=== PATIENT | male | born 1940 | race Caucasian/White ===

== ENCOUNTER → 2016-08-01 | Outpatient (CLI) | payer MEDICARE | LOC: SP 07:24 | PROVIDERS: ATTEND Internal Medicine Pulmonary Disease | DX: J32.9 Chronic sinusitis, unspecified (principal); R09.89 Other specified symptoms and signs involving the circulatory and respiratory systems | CPT/HCPCS: 70220; 93880 ==

== ENCOUNTER → 2016-12-28 | Outpatient (CLI) | payer MEDICARE ==
[2016-12-28 12:04] LABS: ALANINE AMINOTRANSFERASE 16 U/L (21-72); ALBUMIN 4.2 g/dL (3.5-5.0); ALKALINE PHOSPHATASE 73 U/L (38-126); ASPARTATE AMINO TRANSFERASE 16 U/L (17-59); BILIRUBIN,DIRECT 0.3 mg/dL (0.0-0.4); BILIRUBIN,TOTAL 0.6 mg/dL (0.2-1.3); Direct HDL 42 mg/dL (>40); TOTAL PROTEIN 6.9 g/dL (6.3-8.2); TRIGLYCERIDES 115 mg/dL (<150)
[2016-12-28 12:16] LABS: DIRECT LDL 129 mg/dL (<100)
== END ==
LOC: OD 11:02
PROVIDERS: ATTEND Specialist
DX: R07.2 Precordial pain (principal); I25.10 Atherosclerotic heart disease of native coronary artery without angina pectoris; I50.32 Chronic diastolic (congestive) heart failure; I10 Essential (primary) hypertension; R94.31 Abnormal electrocardiogram [ECG] [EKG]; E78.4 Other hyperlipidemia; R06.02 Shortness of breath; Z95.5 Presence of coronary angioplasty implant and graft; R09.89 Other specified symptoms and signs involving the circulatory and respiratory systems; I73.89 Other specified peripheral vascular diseases; J44.9 Chronic obstructive pulmonary disease, unspecified; E08.9 Diabetes mellitus due to underlying condition without complications; E78.5 Hyperlipidemia, unspecified; Z79.899 Other long term (current) drug therapy
CPT/HCPCS: 36415; 80061; 80076; 83036

== ENCOUNTER → 2017-01-23 | Outpatient (CLI) | payer MEDICARE ==
--- NOTE | 2017-01-23 09:29 | RADIOLOGY REPORT (SQ) ---
EXAM DESCRIPTION: CT HEAD WITHOUT COMPLETED DATE/TIME: 01/23/2017 7:48 am REASON FOR STUDY: HEADACHE (R51) R51 HEADACHE COMPARISON: None. TECHNIQUE: Axial images acquired through the brain without intravenous contrast. Images reviewed wi th bone, brain and subdural windows. Images stored on PACS. All CT scanners at this facility use dose modulation, iterative reconstruction, and/or weight based d osing when appropriate to reduce radiation dose to as low as reasonably achievable (ALARA). [facility]: Dose Right [facility]: CareDose [facility]: Dose Right [facility]: Teradose 4D [facility]: [employer] [facility] [employer] RADIATION DOSE: Up-to-date CT equipment and radiation dose reduction techniques were employed. CTDIv ol: 48.4 mGy. DLP: 881 mGy-cm. mGy. LIMITATIONS: None. FINDINGS: VENTRICLES: Normal size and contour. CEREBRUM: No masses. No hemorrhage. No midline shift. No evidence for acute infarction. Normal gra y/white matter differentiation. No areas of low density in the white matter. CEREBELLUM: No masses. No hemorrhage. No alteration of density. No evidence for acute infarction. EXTRAAXIAL SPACES: No fluid collections. No masses. ORBITS AND GLOBE: No intra- or extraconal masses. Normal contour of globe without masses. CALVARIUM: No fracture. PARANASAL SINUSES: No fluid or mucosal thickening. SOFT TISSUES: No mass or hematoma. OTHER: No other significant finding. IMPRESSION: NORMAL BRAIN CT WITHOUT CONTRAST. COMMENT: Quality ID # [id number]: Final reports with documentation of one or more dose reduction techniques (e.g., Automated exposure control, adjustment of the mA and/or kV according to patient size, use of iterative reconstruction technique) TECHNICAL DOCUMENTATION: JOB ID: [id number] [employer]- All Rights Reserved
== END ==
LOC: RAD 07:29
PROVIDERS: ATTEND Internal Medicine
DX: R51 Headache (principal)
CPT/HCPCS: 70450

== ENCOUNTER → 2017-02-01 | Outpatient (CLI) | payer MEDICARE | LOC: OD 09:39 | PROVIDERS: ATTEND Internal Medicine | DX: R07.2 Precordial pain (principal); I50.32 Chronic diastolic (congestive) heart failure; I25.10 Atherosclerotic heart disease of native coronary artery without angina pectoris; I10 Essential (primary) hypertension; R94.31 Abnormal electrocardiogram [ECG] [EKG]; E78.4 Other hyperlipidemia; R06.02 Shortness of breath; I73.89 Other specified peripheral vascular diseases; J44.9 Chronic obstructive pulmonary disease, unspecified; E08.9 Diabetes mellitus due to underlying condition without complications; Z95.5 Presence of coronary angioplasty implant and graft; Z79.899 Other long term (current) drug therapy; R09.89 Other specified symptoms and signs involving the circulatory and respiratory systems | CPT/HCPCS: 36415; 83880 ==

== ENCOUNTER → 2017-02-20 | Outpatient (CLI) | payer MEDICARE ==
--- NOTE | 2017-02-20 09:03 | RADIOLOGY REPORT (SQ) ---
EXAM DESCRIPTION: MRI LUMBAR SPINE WITHOUT COMPLETED DATE/TIME: 02/20/2017 8:38 am REASON FOR STUDY: LUMBAR RADICULOPATHY (M54.16) M54.16 RADICULOPATHY, LUMBAR REGION COMPARISON: None. TECHNIQUE: Sagittal and Axial imaging includes T1, T2, STIR and gradient echo sequences. LIMITATIONS: None. FINDINGS: VISUALIZED UPPER ABDOMEN: Limited evaluation. No acute or suspicious findings suggested. SEGMENTATION: No transitional anatomy. The lowest well-developed disc space is labeled L5-S1. ALIGNMENT: Anatomic. VERTEBRAE: Intact. BONE MARROW: Normal. No marrow replacement or reactive changes. DISC SIGNAL: Normal. No significant abnormal signal or loss of height. POSTERIOR ELEMENTS: Generally intact. No pars defect evident. HARDWARE: None in the spine. CORD AND CONUS: Normal in size and signal intensity. Conus at the appropriate level. SOFT TISSUES: No aortic aneurysm seen. No bulky retroperitoneal adenopathy or mass. No paraspinal mas s or fluid. L1-L2: No significant spinal stenosis or exit foraminal stenosis. L2-L3: No significant spinal stenosis or exit foraminal stenosis. L3-L4: No significant spinal stenosis or exit foraminal stenosis. L4-L5: Mild diffuse posterior bulge and mild -moderate facet arthropathy. Mild spinal stenosis. No significant exit foraminal stenosis. L5-S1: Mild disc bulge. Mild facet arthropathy. No significant spinal stenosis or exit foraminal st enosis. LOWER THORACIC: Incompletely imaged. No stenosis seen. SACRUM: Visualized upper sacrum intact. OTHER: No other significant findings. IMPRESSION: MILD DEGENERATIVE CHANGE IN THE LOWER LUMBAR SPINE. MILD SPINAL STENOSIS AT L4-L5. TECHNICAL DOCUMENTATION: JOB ID: [id number]- All Rights Reserved
== END ==
LOC: RAD 07:13
PROVIDERS: ATTEND Internal Medicine
DX: M54.16 Radiculopathy, lumbar region (principal)
CPT/HCPCS: 72148

== ENCOUNTER 2017-06-04 12:52 | Inpatient (IN) | payer MEDICARE, OTHER ==
[2017-06-04] MEDS ORDERED: METHYLPREDNISOLONE INJ 125 MG/2 ML SDV IV ONE (12:59)
[2017-06-04] MEDS ORDERED: NITROGLYCERIN 2% OINTMENT 1 GM PACKET TP ONE (13:00)
--- NOTE | 2017-06-04 13:01 | ER Document Report ---
ED Respiratory Problem - General Stated Complaint: SHORTNESS OF BREATH Time Seen by Provider: 06/04/17 12:57 Notes: 76-year-old male. History of CHF. History of smoking. Followed by Dr. Kumar. Was decreased recently on his Lasix. States since that time he has had increased shortness of breath. Was taking 160 mg of Lasix a day now only taking 40. Started having increased swelling of his lower extremities as well. Had some intermittent chest pain as well. On arrival by EMS patient reportedly breathing about 40 breaths per minute. Placed on CPAP. Was given 2 breathing treatments in route as well. Patient states he feels much better at this time but still little short of breath. TRAVEL OUTSIDE OF THE [place] IN LAST 30 DAYS: No - HPI Patient complains to provider of: Chest pain, CHF, COPD, Cough, Short of breath Onset: Just prior to arrival Duration: Better Initiating Event: Exertion, Exposure to smoke Quality of pain: No pain Severity: Moderate Pain Level: 3 Context: Hx CHF Cough: Nonproductive Sputum amount: None EMS treatments: Bronchodilators, CPAP Associated symptoms: Ankle/leg swelling, Cough, Short of breath - Related Data Allergies/Adverse Reactions: quinine [Quinine] Allergy (Verified 06/04/17 13:30) Past Medical History - General Information source: Patient - Social History Smoking Status: Current Every Day Smoker Cigarette use (# per day): Yes Frequency of alcohol use: None Drug Abuse: None Lives with: Family Family History: Reviewed & Not Pertinent - Past Medical History Cardiac Medical History: Reports: Hx Atrial Fibrillation, Hx Coronary Artery Disease, Hx Hypercholesterolemia, Hx Hypertension Denies: Hx Congestive Heart Failure, Hx DVT, Hx Pulmonary Embolism Pulmonary Medical History: Reports: Hx Bronchitis, Hx COPD Neurological Medical History: Reports: Hx Cerebrovascular Accident Endocrine Medical History: Reports: Hx Diabetes Mellitus Type 2 Renal/ Medical History: Denies: Hx Peritoneal Dialysis GI Medical History: Reports: Hx Gastroesophageal Reflux Disease Psychiatric Medical History: Reports: Hx Anxiety Past Surgical History: Reports: Hx Cardiac Catheterization, Hx Coronary Stent, Hx Kidney (Renal Surgery), Hx Orthopedic Surgery - neck - Immunizations Immunizations up to date: Yes Hx Diphtheria, Pertussis, Tetanus Vaccination: Yes Hx Pneumococcal Vaccination: 02/26/12 Review of Systems - Review of Systems Constitutional: No symptoms reported EENT: No symptoms reported Cardiovascular: Chest pain Respiratory: Cough, Short of breath, Wheezing Gastrointestinal: No symptoms reported Genitourinary: No symptoms reported Male Genitourinary: No symptoms reported Musculoskeletal: No symptoms reported Skin: No symptoms reported Hematologic/Lymphatic: No symptoms reported Neurological/Psychological: No symptoms reported Physical Exam - Vital signs Vitals: Resp Pulse Ox 0 L 100 06/04/17 13:00 06/04/17 13:00 Interpretation: Hypertensive - General General appearance: Appears well, Alert In distress: Moderate - HEENT Head: Normocephalic, Atraumatic Eyes: Normal Pupils: PERRL - Respiratory Respiratory status: No respiratory distress Chest status: Nontender Breath sounds: Decreased air movement, Wheezing Chest palpation: Normal - Cardiovascular Rhythm: Regular Heart sounds: Normal auscultation Murmur: No - Abdominal Inspection: Normal Distension: No distension Bowel sounds: Normal Tenderness: Nontender Organomegaly: No organomegaly - Back Back: Normal, Nontender - Extremities General upper extremity: Normal inspection, Nontender, Normal color, Normal ROM , Normal temperature General lower extremity: Normal inspection, Nontender, Edema, Normal color, Normal ROM, Normal temperature, Normal weight bearing. No: Jennifer's sign - Neurological Neuro grossly intact: Yes Cognition: Normal Orientation: AAOx4 Boyd Coma Scale Eye Opening: Spontaneous Boyd Coma Scale Verbal: Oriented Jodie Coma Scale Motor: Obeys Commands Boyd Coma Scale Total: 15 Speech: Normal Motor strength normal: LUE, RUE, LLE, RLE Sensory: Normal - Psychological Associated symptoms: Normal affect, Normal mood - Skin Skin Temperature: Warm Skin Moisture: Dry Skin Color: Normal Course - Re-evaluation Re-evalutation: 06/04/17 13:09 Patient on CPAP. Wheezing. Obvious edema lower extremities. Possible COPD versus CHF versus CO versus pneumonia. Get broad workup, keep on CPAP at this time, steroids, breathing treatments, nitro glycerin ointment and reassess. 06/04/17 14:[address] Kumar. Will admit to IMCU at this time for CHF exacerbation. 06/04/17 14:35 Laboratory 06/04/17 06/04/17 06/04/17 13:14 13:14 13:14 WBC 6.9 RBC 4.10 L Hgb 11.9 L Hct 36.2 L MCV 88 MCH 29.0 MCHC 32.8 RDW 15.4 H Plt Count 228 Seg Neutrophils % 72.3 Lymphocytes % 15.5 Monocytes % 8.1 Eosinophils % 3.2 Basophils % 0.9 Absolute Neutrophils 5.0 Absolute Lymphocytes 1.1 Absolute Monocytes 0.6 Absolute Eosinophils 0.2 Absolute Basophils 0.1 Sodium 140.4 Potassium 4.5 Chloride 99 Carbon Dioxide 31 H Anion Gap 10 BUN 18 Creatinine 1.23 Est GFR ( Amer) > 60 Est GFR (Non-Af Amer) 57 L Glucose 129 H Calcium 9.1 Total Bilirubin 0.3 Direct Bilirubin 0.2 Neonat Total Bilirubin Not Reportable Neonat Direct Bilirubin Not Reportable Neonat Indirect Bili Not Reportable AST 20 ALT 28 Alkaline Phosphatase 70 Creatine Kinase 64 CK-MB (CK-2) 1.12 Troponin I 0.013 NT-Pro-B Natriuret Pep 1989 Total Protein 6.6 Albumin 4.1 06/04/17 14:36 Chest X-Ray 06/04/17 12:58 IMPRESSION: Stable cardiomegaly. No new or active infiltrates. - Vital Signs Vital signs: Temp Pulse Resp BP Pulse Ox 27 H 147/119 H 100 06/04/17 13:03 06/04/17 13:03 06/04/17 13:03 - Laboratory Result Diagrams: 06/04/17 13:14 06/04/17 13:14 Laboratory results interpreted by ks: 06/04/17 06/04/17 06/04/17 13:14 13:14 13:14 RBC 4.10 L Hgb 11.9 L Hct 36.2 L RDW 15.4 H Carbon Dioxide 31 H Est GFR (Non-Af Amer) 57 L Glucose 129 H NT-Pro-B Natriuret Pep 1989 - EKG Interpretation by Ms EKG shows normal: Sinus rhythm, [place], QRS Complexes, ST-T Waves Rhythm: APC's [place]/QRS: RBBB Heart block present: 1st Degree When compared to previous EKG there are: No significant change Discharge - Discharge Clinical Impression: COPD exacerbation Congestive heart disease Qualifiers: Congestive heart failure type: combined Congestive heart failure chronicity: acute Qualified Code(s): I50.41 - Acute combined systolic (congestive) and diastolic (congestive) heart failure Condition: Good Disposition: ADMITTED INPATIENT Admitting Provider: [facility] Unit Admitted: [facility]
[2017-06-04 13:30] LABS: ABSOLUTE BASOPHILS # (AUTO) 0.1 10^3/uL (0.0-0.2); ABSOLUTE EOSINOPHILS # (AUTO) 0.2 10^3/uL (0.0-0.6); ABSOLUTE LYMPHOCYTES (AUTO) 1.1 10^3/uL (0.5-4.7); ABSOLUTE MONOCYTES (AUTO) 0.6 10^3/uL (0.1-1.4); BASOPHILS % (AUTO) 0.9 % (0-2); EOSINOPHILS % (AUTO) 3.2 % (0-6); HEMATOCRIT 36.2 % (37.9-51.0); HEMOGLOBIN 11.9 g/dL (13.5-17.0); LYMPHOCYTES % (AUTO) 15.5 % (13-45); MEAN CORPUSCULAR HGB CONC 32.8 g/dL (32.0-36.0); MEAN CORPUSCULAR VOLUME 88 fl (80-97); MONOCYTES % (AUTO) 8.1 % (3-13); PLATELET COUNT 228 10^3/uL (150-450); RED CELL DISTRIBUTION WIDTH 15.4 % (11.5-14.0); SEGMENTED NEUTROPHILS % (AUTO) 72.3 % (42-78); TOTAL CELLS COUNTED % (AUTO) 100 %; WHITE BLOOD COUNT 6.9 10^3/uL (4.0-10.5)
[2017-06-04 13:49] LABS: ALANINE AMINOTRANSFERASE 28 U/L (21-72); ALBUMIN 4.1 g/dL (3.5-5.0); ALKALINE PHOSPHATASE 70 U/L (38-126); ANION GAP 10 (5-19); ASPARTATE AMINO TRANSFERASE 20 U/L (17-59); BILIRUBIN,DIRECT 0.2 mg/dL (0.0-0.4); BILIRUBIN,TOTAL 0.3 mg/dL (0.2-1.3); BLOOD UREA NITROGEN 18 mg/dL (7-20); CALCIUM 9.1 mg/dL (8.4-10.2); CARBON DIOXIDE 31 mmol/L (22-30); CHLORIDE 99 mmol/L (98-107); CREATINE KINASE 64 U/L (55-170); GLUCOSE 129 mg/dL (75-110); POTASSIUM 4.5 mmol/L (3.6-5.0); SODIUM 140.4 mmol/L (137-145); TOTAL PROTEIN 6.6 g/dL (6.3-8.2)
[2017-06-04 14:01] LABS: CREATINE KINASE MB 1.12 ng/mL (<4.55); TROPONIN I 0.013 ng/mL
[2017-06-04] MEDS ORDERED: FUROSEMIDE INJ/PF 40 MG/4 ML SDV IV ONE (14:25)
--- NOTE | 2017-06-04 14:32 | RADIOLOGY REPORT (SQ) ---
EXAM DESCRIPTION: CHEST SINGLE VIEW COMPLETED DATE/TIME: 06/04/2017 2:17 pm REASON FOR STUDY: sob COMPARISON: None. EXAM PARAMETERS: NUMBER OF VIEWS: One view. 08/08/2016 TECHNIQUE: Single frontal radiographic view of the chest acquired. RADIATION DOSE: NA LIMITATIONS: None. FINDINGS: LUNGS AND PLEURA: No opacities, masses or pneumothorax. No pleural effusion. MEDIASTINUM AND HILAR STRUCTURES: No masses. Contour normal. HEART AND VASCULAR STRUCTURES: Stable cardiomegaly BONES: No acute findings. HARDWARE: None in the chest. OTHER: No other significant finding. IMPRESSION: Stable cardiomegaly. No new or active infiltrates. TECHNICAL DOCUMENTATION: JOB ID: [id number] [employer]- All Rights Reserved
[2017-06-04] MEDS ORDERED: ALBUTEROL SULFATE 0.083% NEB 2.5 MG/3 ML AMPUL NEB ONE (14:51)
[2017-06-04 16:58] LABS: ARTERIAL BLOOD BASE EXCESS 5.1 mmol/L; ARTERIAL BLOOD FIO2 40%; ARTERIAL BLOOD HCO3 31.8 mmol/L (20-26); ARTERIAL BLOOD O2 SATURATION 98.6 % (94-98); ARTERIAL BLOOD PCO2 56.4 mmHg (35-45); ARTERIAL BLOOD PH 7.37 (7.35-7.45); ARTERIAL BLOOD PO2 138.5 mmHg (80-100); ARTERIAL BLOOD TOTAL CO2 33.5 mmol/L (23-27)
--- NOTE | 2017-06-04 17:10 | EKG REPORT ---
SEVERITY:- ABNORMAL ECG - SINUS OR ECTOPIC ATRIAL RHYTHM MULTIPLE ATRIAL PREMATURE COMPLEXES FIRST DEGREE AV BLOCK RIGHT BUNDLE BRANCH BLOCK : Confirmed by: Philippe Galvan MD 04-Jun-2017 17:10:29
[2017-06-04] MEDS ORDERED: GLUCAGON,HUMAN RECOMB 1 MG INJ IM PRN (18:14)
[2017-06-04] MEDS ORDERED: DEXTROSE 40% GEL 15 GM TUBE PO PRN ×2 (18:14)
[2017-06-04] MEDS ORDERED: DEXTROSE 50%-WATER 25 GM/50 ML DISP.SYRIN IV PRN ×2 (18:14)
[2017-06-04 18:57] LABS: INTERNATIONAL RATION (INR) 0.95; PROTHROMBIN TIME 13.4 SEC (11.4-15.4)
[2017-06-04 18:58] LABS: APPEARANCE,URINE CLEAR; BILIRUBIN,URINE NEGATIVE (NEGATIVE); COLOR,URINE STRAW; GLUCOSE, URINE NEGATIVE (NEGATIVE); KETONES,URINE NEGATIVE (NEGATIVE); LEUKOCYTE ESTERASE,URINE NEGATIVE (NEGATIVE); NITRITE,URINE NEGATIVE (NEGATIVE); PROTEIN,URINE 100 mg/dL (NEGATIVE); URINE SPECIFIC GRAVITY 1.006; UROBILINOGEN,URINE NEGATIVE mg/dL (<2.0)
[2017-06-04 19:05] LABS: LIPASE 58.8 U/L (23-300); MAGNESIUM 1.8 mg/dL (1.6-2.3); PHOSPHORUS 3.9 mg/dL (2.5-4.5)
[2017-06-04 19:07] LABS: URINE AMPHETAMINES SCREEN NEGATIVE; URINE BARBITURATES SCREEN NEGATIVE; URINE BENZODIAZEPINES SCREEN NEGATIVE; URINE COCAINE SCREEN NEGATIVE; URINE MARIJUANA (THC) SCREEN NEGATIVE; URINE METHADONE SCREEN NEGATIVE; URINE PHENCYCLIDINE SCREEN NEGATIVE
[2017-06-04 19:24] LABS: CREATINE KINASE MB 1.19 ng/mL (<4.55); TROPONIN I 0.023 ng/mL
[2017-06-04 19:28] LABS: FREE T4 (FREE THYROXINE) 1.22 ng/dL (0.78-2.19)
[2017-06-04 19:42] LABS: THYROID STIMULATING HORMONE 0.44 uIU/mL (0.47-4.68)
--- NOTE | 2017-06-04 20:21 | RADIOLOGY REPORT (SQ) ---
EXAM DESCRIPTION: CT CHEST WITHOUT COMPLETED DATE/TIME: 06/04/2017 8:11 pm REASON FOR STUDY: pneumonia COMPARISON: 08/08/2016 TECHNIQUE: CT scan performed of the chest without intravenous contrast. Images reviewed with lung, soft tissue and bone windows. Reconstructed coronal and sagittal MPR images reviewed. All images st ored on PACS. All CT scanners at this facility use dose modulation, iterative reconstruction, and/or weight based d osing when appropriate to reduce radiation dose to as low as reasonably achievable (ALARA). [facility]: Dose Right [facility]: CareDose [facility]: Dose Right [facility]: Teradose 4D [facility]: Smart [employer] RADIATION DOSE: CT Rad equipment meets quality standard of care and radiation dose reduction techniq ues were employed. CTDIvol: 18.1 mGy. DLP: 805 mGy-cm. mGy. LIMITATIONS: No technical limitations. FINDINGS: LUNGS AND PLEURA: Paraseptal and centrilobular emphysema. Occasional pulmonary nodules me asuring up to about 5 mm which are stable. No effusions HILAR AND MEDIASTINAL STRUCTURES: No identified masses or abnormal nodes. No obvious aneurysm. HEART AND VASCULAR STRUCTURES: No aneurysm. No pericardial effusion. UPPER ABDOMEN: No significant findings. Limited exam. THYROID AND OTHER SOFT TISSUES: No masses. No adenopathy. BONES: No significant finding. HARDWARE: None in the chest. OTHER: No other significant findings. IMPRESSION: COPD. Stable pulmonary nodules. TECHNICAL DOCUMENTATION: JOB ID: [id number] Quality ID # [id number]: Final reports with documentation of one or more dose reduction techniques (e.g., Au tomated exposure control, adjustment of the mA and/or kV according to patient size, use of iterative reconstruction technique) 2010 [employer]- All Rights Reserved
--- NOTE | 2017-06-04 21:16 | PDOC H&P ---
History of Present Illness Admission Date/PCP: 06/04/17 14:38 History of Present Illness: Earnest PIMENTEL is a 76 year old male, He has a history of chronic obstructive pulmonary disease, he came to the emergency room for evaluation of shortness of breath, in the emergency room he was evaluated, chest x-ray was done It showed no acute pathology subsequently CT chest was done, it showed no pneumonia, no CHF no mass except for COPD. Patient used to take megadoses of furosemide, he was on 160 mg of furosemide this dose was affecting kidney function, the dose was decreased to 40 mg p.o. daily, he stated that the decrease dose of Lasix is the cause of his symptoms of shortness of breath, though he continues to smoke cigarettes despite very severe COPD.ABG was done on FiO2 40% showed pH 7.37, PCO2 56.4, PO2 130.5, bicarbonate 31.8 this ABG suggests chronic respiratory acidosis if this was a normal lung but he has baseline COPD, this is most consistent with acute on chronic respiratory failure in this patient with a baseline COPD Past Medical History Cardiac Medical History: Reports: Coronary Artery Disease, Myocardial Infarction Pulmonary Medical History: Reports: Bronchitis, Chronic Obstructive Pulmonary Disease (COPD) Endocrine Medical History: Reports: Diabetes Mellitus Type 2 GI Medical History: Reports: Gastroesophageal Reflux Disease Psychiatric Medical History: Reports: Depression Past Surgical History Past Surgical History: Reports: Cardiac Catheterization, Coronary Stent, Orthopedic Surgery - neck Social History Lives with: Family Smoking Status: Current Every Day Smoker Frequency of Alcohol Use: None Hx Recreational Drug Use: No Hx Prescription Drug Abuse: No Family History Family History: Reviewed & Not Pertinent Parental Family History Reviewed: Yes Children Family History Reviewed: Yes Sibling(s) Family History Reviewed.: Yes Medication/Allergy Home Medications: Allopurinol [Zyloprim 100 mg Tablet] 100 mg PO DAILY 06/04/17 Aspirin [Aspirin 81 mg Chewable Tablet] 81 mg PO DAILY 06/04/17 Duloxetine HCl [Cymbalta] 60 mg PO DAILY 06/04/17 Furosemide [Lasix 80 mg Tablet] 80 mg PO BID 06/04/17 Hydrocodone/Acetaminophen [[place] 10-325 mg Tablet] 1 tab PO Q8 06/04/17 Metformin HCl [Glucophage 500 mg Tablet] 500 mg PO BIDBS 06/04/17 Metoprolol Succinate [Toprol Xl 25 mg Tab.sr] 25 mg PO DAILY 06/04/17 Montelukast Sodium [Singulair 10 mg Tablet] 10 mg PO QPM 06/04/17 Pioglitazone HCl [Actos 15 mg Tablet] 15 mg PO DAILY 06/04/17 Potassium Chloride [K-Tab ER] 10 mg PO DAILY 06/04/17 Pramipexole Di-HCl [Mirapex] 0.125 mg PO QHS 06/04/17 Pravastatin Sodium [Pravachol] 40 mg PO DAILY 06/04/17 Ramipril [Altace 10 mg Capsule] 10 mg PO DAILY 06/04/17 Allergies/Adverse Reactions: quinine [Quinine] Allergy (Verified 06/04/17 13:30) Review of Systems Constitutional: ABSENT: chills, fever(s), headache(s), weight gain, weight loss Eyes: ABSENT: visual disturbances Ears: ABSENT: hearing changes Cardiovascular: PRESENT: chest pain, dyspnea on exertion Respiratory: PRESENT: cough, dyspnea Gastrointestinal: ABSENT: abdominal pain, constipation, diarrhea, hematemesis, hematochezia, nausea, vomiting Genitourinary: ABSENT: dysuria, hematuria Musculoskeletal: ABSENT: joint swelling Integumentary: ABSENT: rash, wounds Neurological: ABSENT: abnormal gait, abnormal speech, confusion, dizziness, focal weakness, syncope Psychiatric: ABSENT: anxiety, depression, homidical ideation, suicidal ideation Endocrine: ABSENT: cold intolerance, heat intolerance, menstrual abnormalities, polydipsia, polyuria Hematologic/Lymphatic: ABSENT: easy bleeding, easy bruising, lymphadenopathy Physical Exam Vital Signs: Temp Pulse Resp BP Pulse Ox 107 H 33 H 179/71 H 100 06/04/17 20:22 06/04/17 19:02 06/04/17 19:02 06/04/17 19:02 General appearance: PRESENT: severe distress Head exam: PRESENT: atraumatic, normocephalic Eye exam: PRESENT: conjunctiva pink, EOMI, PERRLA Respiratory exam: PRESENT: wheezes Cardiovascular exam: PRESENT: RRR, +S1, +S2 Vascular exam: PRESENT: normal capillary refill GI/Abdominal exam: PRESENT: soft Rectal exam: PRESENT: deferred Neurological exam: PRESENT: alert, awake, oriented to person, oriented to place , oriented to time, oriented to situation, CN II-XII grossly intact Psychiatric exam: PRESENT: appropriate affect, normal mood Skin exam: PRESENT: dry, intact, warm Results Laboratory Results: 06/04/17 06/04/17 06/04/17 16:00 18:40 18:40 Carbonic Acid 1.70 H HCO3/H2CO3 Ratio 18:1 ABG pH 7.37 ABG pCO2 56.4 H ABG pO2 138.5 H ABG HCO3 31.8 H ABG O2 Saturation 98.6 H ABG Base Excess 5.1 FiO2 40% Phosphorus 3.9 Magnesium 1.8 Ammonia Amylase 40 Lipase 58.8 TSH 0.44 L Free T4 1.22 Urine Color Urine Appearance Urine pH Ur Specific [place] Urine Protein Urine Glucose (UA) Urine Ketones Urine Blood Urine Nitrite Ur Leukocyte Esterase Urine WBC (Auto) Urine RBC (Auto) 06/04/17 06/04/17 18:40 19:30 Carbonic Acid HCO3/H2CO3 Ratio ABG pH ABG pCO2 ABG pO2 ABG HCO3 ABG O2 Saturation ABG Base Excess FiO2 Phosphorus Magnesium Ammonia < 8.7 L Amylase Lipase TSH Free T4 Urine Color STRAW Urine Appearance CLEAR Urine pH 5.0 Ur Specific [place] 1.006 Urine Protein 100 H Urine Glucose (UA) NEGATIVE Urine Ketones NEGATIVE Urine Blood SMALL H Urine Nitrite NEGATIVE Ur Leukocyte Esterase NEGATIVE Urine WBC (Auto) 2 Urine RBC (Auto) 2 06/04/17 06/04/17 18:40 18:40 Creatine Kinase 62 CK-MB (CK-2) 1.19 Troponin I 0.023 Impressions: Chest CT 06/04/17 00:00 IMPRESSION: COPD. Stable pulmonary nodules. Chest X-Ray 06/04/17 12:58 IMPRESSION: Stable cardiomegaly. No new or active infiltrates. Assessment & Plan - Diagnosis (1) Acute and chronic respiratory failure Qualifiers: Respiratory failure complication: hypercapnia Qualified Code(s): J96.22 - Acute and chronic respiratory failure with hypercapnia Is this a current diagnosis for this admission?: Yes Plan: Patient is presently on noninvasive positive pressure ventilation BiPAP (2) Acute exacerbation of chronic obstructive pulmonary disease (COPD) Is this a current diagnosis for this admission?: Yes Plan: He obviously have acute COPD exacerbation, treated with Solu-Medrol and antibiotic
[2017-06-04 21:28] LABS: UR PRO/CREAT RATIO RESULT 2.3 mg/mg (0.0-0.2); URINE CREATININE 22.6 mg/dL (22-328)
[2017-06-04] MEDS: METHYLPREDNISOLONE INJ 125 MG/2 ML SDV IV SCH (21:40)
[2017-06-04] MEDS: LEVOFLOXACIN 750 MG/D5W RTU 750 MG/150 ML RTUPB IV SCH (22:16)
[2017-06-04] MEDS: HYDROCODONE/ACETAMINOPHEN 10-325 MG TABLET PO SCH (22:17)
[2017-06-04] MEDS: INSULIN LISPRO 100 UNIT/ML 3 ML VIAL SUBCUT PRN (22:24)
[2017-06-04] MEDS ORDERED: ENOXAPARIN SODIUM INJ 40 MG/0.4 ML DISP.SYRIN SUBCUT ONE (23:00)
[2017-06-05 01:02] LABS: CREATINE KINASE MB 1.54 ng/mL (<4.55); TROPONIN I 0.032 ng/mL
[2017-06-05] MEDS: HYDROCODONE/ACETAMINOPHEN 10-325 MG TABLET PO SCH ×3 (05:00→22:50)
[2017-06-05] MEDS: METHYLPREDNISOLONE INJ 125 MG/2 ML SDV IV SCH ×3 (05:00→22:51)
[2017-06-05 06:43] LABS: ABSOLUTE LYMPHOCYTES (AUTO) 0.5 10^3/uL (0.5-4.7); ABSOLUTE MONOCYTES (AUTO) 0.1 10^3/uL (0.1-1.4); ABSOLUTE NEUT (AUTO) 6.7 10^3/uL (1.7-8.2); BASOPHILS % (AUTO) 0.2 % (0-2); HEMATOCRIT 37.7 % (37.9-51.0); HEMOGLOBIN 12.3 g/dL (13.5-17.0); LYMPHOCYTES % (AUTO) 6.4 % (13-45); MEAN CORPUSCULAR HEMOGLOBIN 28.8 pg (27.0-33.4); MEAN CORPUSCULAR HGB CONC 32.5 g/dL (32.0-36.0); MEAN CORPUSCULAR VOLUME 89 fl (80-97); MONOCYTES % (AUTO) 1.9 % (3-13); PLATELET COUNT 216 10^3/uL (150-450); RED BLOOD COUNT 4.25 10^6/uL (4.35-5.55); RED CELL DISTRIBUTION WIDTH 15.3 % (11.5-14.0); SEGMENTED NEUTROPHILS % (AUTO) 91.5 % (42-78); TOTAL CELLS COUNTED % (AUTO) 100 %; WHITE BLOOD COUNT 7.3 10^3/uL (4.0-10.5)
--- NOTE | 2017-06-05 06:46 | EKG REPORT ---
SEVERITY:- ABNORMAL ECG - SINUS RHYTHM PAIRED ATRIAL PREMATURE COMPLEXES FIRST DEGREE AV BLOCK RIGHT BUNDLE BRANCH BLOCK : Confirmed by: Philippe Galvan MD 05-Jun-2017 06:46:23
[2017-06-05 07:20] LABS: ALANINE AMINOTRANSFERASE 21 U/L (21-72); ALBUMIN 4.1 g/dL (3.5-5.0); ALKALINE PHOSPHATASE 70 U/L (38-126); ANION GAP 10 (5-19); ASPARTATE AMINO TRANSFERASE 19 U/L (17-59); BILIRUBIN,DIRECT 0.3 mg/dL (0.0-0.4); BILIRUBIN,TOTAL 0.3 mg/dL (0.2-1.3); BLOOD UREA NITROGEN 20 mg/dL (7-20); CALCIUM 9.3 mg/dL (8.4-10.2); CARBON DIOXIDE 31 mmol/L (22-30); CHLORIDE 99 mmol/L (98-107); CHOLESTEROL 177.66 mg/dL (0-200); CREATINE KINASE 86 U/L (55-170); GLUCOSE 181 mg/dL (75-110); POTASSIUM 4.8 mmol/L (3.6-5.0); SODIUM 140.1 mmol/L (137-145); TOTAL PROTEIN 6.3 g/dL (6.3-8.2); TRIGLYCERIDES 81 mg/dL (<150)
[2017-06-05 07:31] LABS: DIRECT LDL 114 mg/dL (<100)
[2017-06-05 07:40] LABS: CREATINE KINASE MB 1.88 ng/mL (<4.55); TROPONIN I 0.033 ng/mL
[2017-06-05] MEDS: INSULIN LISPRO 100 UNIT/ML 3 ML VIAL SUBCUT PRN ×3 (08:02→18:41)
[2017-06-05] MEDS: METFORMIN HCL 500 MG TABLET PO SCH ×2 (08:02→16:19)
[2017-06-05] MEDS: ALLOPURINOL 100 MG TABLET PO SCH (09:17)
[2017-06-05] MEDS: ASPIRIN 81 MG TABLET, CHEWABLE PO SCH (09:17)
[2017-06-05] MEDS: POTASSIUM CHLORIDE 10 MEQ TABLET.SA PO SCH (09:17)
[2017-06-05] MEDS: FUROSEMIDE 40 MG TABLET PO SCH (09:18)
[2017-06-05] MEDS: DULOXETINE HCL 30 MG CAPSULE.DR PO SCH (09:18)
[2017-06-05] MEDS: RAMIPRIL 10 MG CAPSULE PO SCH (09:18)
[2017-06-05] MEDS: METOPROLOL SUCCINATE 25 MG TAB.SR.24H PO SCH (09:19)
[2017-06-05] MEDS: PIOGLITAZONE HCL 15 MG TABLET PO SCH (09:19)
[2017-06-05] MEDS: ENOXAPARIN SODIUM INJ 40 MG/0.4 ML DISP.SYRIN SUBCUT SCH (09:20)
[2017-06-05] MEDS ORDERED: FUROSEMIDE 80 MG TABLET PO SCH (10:00)
[2017-06-05] MEDS ORDERED: (PENDING PHARMACY ID) (Pravastatin Sodium [Pravachol] 40 MG) PO SCH (10:00)
[2017-06-05] MEDS: MONTELUKAST SODIUM 10 MG TABLET PO SCH (17:38)
--- NOTE | 2017-06-05 19:39 | XCELERA REPORT ---
[address] [address] Transthoracic Echocardiogram Report Name: Earnest PIMENTEL Age: 76 yrs Gender: Male : 1940 Patient Status: Inpatient Patient Location: [address] [place] [address] Study Date: 06/05/2017 10:43 AM Height: 72 in Weight: 287 lb BSA: 2.5 m2 Procedure: A complete two-dimensional transthoracic echocardiogram was performed (2D, M-mode, spectral and color flow Doppler). The study was technically difficult with many images being suboptimal in quality. Reason For Study: chf Ordering Physician: CARRILLO GARCIA Performed By: Leydi Munson Interpretation Summary The left ventricular ejection fraction is preserved. The left ventricle is grossly normal size. There is mild concentric left ventricular hypertrophy. Doppler measurements suggest pseudonormalized left ventricular relaxation, which is associated with grade II/IV or mild to moderate diastolic dysfunction Regional wall motion abnormalities cannot be excluded due to limited visualization. The right ventricle is moderately dilated. The right ventricular systolic function is mildly reduced. The right ventricle appears to be hypertrophied Borderline left atrial enlargement. The right atrium is mild to moderately dilated. There is a trace amount of mitral regurgitation There is no mitral valve stenosis. There is no aortic valve stenosis There is a trace amount of aortic regurgitation There is a mild amount of tricuspid regurgitation There is mild pulmonary hypertension by echo Right ventricular systolic pressure is estimated to be elevated at 30- 40mmHg. The aortic root is not well visualized but is probably normal size. The inferior vena cava appeared normal and decreased < 50% with respiration (RAP 10-15 mmHg) Minimal pericardial effusion. MMode/2D Measurements & Calculations RVDd: 3.3 cm LVIDd: 5.7 cmFS: 42.8 % Ao root diam: 3.9 cm IVSd: 1.4 cm LVIDs: 3.3 cmEDV(Teich): 162.0 ml LVPWd: 1.1 cmESV(Teich): 43.5 ml Ao root area: 12.1 cm2 EF(Teich): 73.1 % LA dimension: 3.6 cm LVOT diam: 1.9 cm LVOT area: 2.8 cm2 Doppler Measurements & Calculations MV E max terri: MV P1/2t max terri: Ao V2 max: LV V1 max P.8 cm/sec 96.3 cm/sec 158.1 cm/sec 5.2 mmHg MV A max terri: MV P1/2t: 60.7 msec Ao max PG: LV V1 max: 104.1 cm/sec MVA(P1/2t): 3.6 cm2 10.0 mmHg 113.5 cm/sec MV E/A: 0.92 MV dec slope: ANTONIO(V,D): 2.0 cm2 464.1 cm/sec2 PA V2 max: TR max terri: 90.3 cm/sec 279.6 cm/sec PA max P.3 mmHgTR max P.3 mmHg Left Ventricle The left ventricle is grossly normal size. There is mild concentric left ventricular hypertrophy. The left ventricular ejection fraction is preserved. Doppler measurements suggest pseudonormalized left ventricular relaxation, which is associated with grade II/IV or mild to moderate diastolic dysfunction. Regional wall motion abnormalities cannot be excluded due to limited visualization. Right Ventricle The right ventricle is moderately dilated. The right ventricle appears to be hypertrophied. The right ventricular systolic function is mildly reduced. Atria The right atrium is mild to moderately dilated. Borderline left atrial enlargement. Interarterial septum not well visualized and not well dopplered. Cannot comment on ASD/PFO presence. Mitral Valve The mitral valve is not well visualized. There is no mitral valve stenosis. There is a trace amount of mitral regurgitation. Aortic Valve The aortic valve is not well visualized secondary to technical limitations. There is no aortic valve stenosis. There is a trace amount of aortic regurgitation. Tricuspid Valve The tricuspid valve is not well visualized secondary to technical limitations. There is no tricuspid stenosis. There is a mild amount of tricuspid regurgitation. There is mild pulmonary hypertension by echo. Right ventricular systolic pressure is estimated to be elevated at 30- 40mmHg. Pulmonic Valve The pulmonic valve is not well visualized. Great Vessels The aortic root is not well visualized but is probably normal size. The inferior vena cava appeared normal and decreased < 50% with respiration (RAP 10-15 mmHg). Effusions Minimal pericardial effusion. : CARRILLO GARCIA > Ana Tinajero
--- NOTE | 2017-06-05 20:27 | PDOC PROGRESS REPORT ---
Subjective Progress Note for:: 06/05/17 Subjective:: Patient was admitted yesterday when he presented with acute respiratory acidosis associated with acute COPD exacerbation, 2D echo was done showed hypertrophic right ventricle dilated right atrium elevated pulmonary pressures, he continues to require noninvasive positive pressure ventilation with BiPAP still on Solu-Medrol, very symptomatic with shortness of breath Reason For Visit: ACUTE ON CHRONIC RESPIRATORY FAILURE, COPD, Physical Exam Vital Signs: Temp Pulse Resp BP Pulse Ox 97.9 F 89 30 H 162/77 H 100 06/05/17 15:16 06/05/17 19:00 06/05/17 16:07 06/05/17 15:16 06/05/17 15:16 Intake & Output 06/04/17 06/05/17 06/06/17 06:59 06:59 06:59 Intake Total 316 590 Output Total 650 825 Balance -334 -235 Weight 130.7 kg General appearance: PRESENT: severe distress Head exam: PRESENT: atraumatic, normocephalic Eye exam: PRESENT: conjunctiva pink, EOMI, PERRLA Ear exam: PRESENT: normal external ear exam Mouth exam: PRESENT: moist, tongue midline Neck exam: PRESENT: full ROM Respiratory exam: PRESENT: decreased breath sounds Cardiovascular exam: PRESENT: RRR, +S1, +S2 Pulses: PRESENT: normal dorsalis pedis pul, +2 pedal pulses bilateral Vascular exam: PRESENT: normal capillary refill GI/Abdominal exam: PRESENT: normal bowel sounds, soft Rectal exam: PRESENT: deferred Neurological exam: PRESENT: alert, CN II-XII grossly intact. ABSENT: motor sensory deficit Psychiatric exam: PRESENT: appropriate affect, normal mood. ABSENT: homicidal ideation, suicidal ideation Skin exam: PRESENT: dry, intact, warm. ABSENT: cyanosis, rash Results Laboratory Results: 06/05/17 06:28 06/05/17 06:28 06/05/17 06/05/17 06:28 06:28 WBC 7.3 RBC 4.25 L Hgb 12.3 L Hct 37.7 L MCV 89 MCH 28.8 MCHC 32.5 RDW 15.3 H Plt Count 216 Seg Neutrophils % 91.5 H Lymphocytes % 6.4 L Monocytes % 1.9 L Eosinophils % 0.0 Basophils % 0.2 Absolute Neutrophils 6.7 Absolute Lymphocytes 0.5 Absolute Monocytes 0.1 Absolute Eosinophils 0.0 Absolute Basophils 0.0 Sodium 140.1 Potassium 4.8 Chloride 99 Carbon Dioxide 31 H Anion Gap 10 BUN 20 Creatinine 1.16 Est GFR ( Amer) > 60 Est GFR (Non-Af Amer) > 60 Glucose 181 H Calcium 9.3 Total Bilirubin 0.3 AST 19 ALT 21 Alkaline Phosphatase 70 Total Protein 6.3 Albumin 4.1 Triglycerides 81 Cholesterol 177.66 LDL Cholesterol Direct 114 H VLDL Cholesterol 16.0 HDL Cholesterol 54 06/04/17 06/04/17 06/05/17 18:40 18:40 00:27 Creatine Kinase 62 78 CK-MB (CK-2) 1.19 Troponin I 0.023 06/05/17 06/05/17 06/05/17 00:27 06:28 06:28 Creatine Kinase 86 CK-MB (CK-2) 1.54 1.88 Troponin I 0.032 0.033 Impressions: Chest CT 06/04/17 00:00 IMPRESSION: COPD. Stable pulmonary nodules. Chest X-Ray 06/04/17 12:58 IMPRESSION: Stable cardiomegaly. No new or active infiltrates. Assessment & Plan - Diagnosis (1) Acute and chronic respiratory failure Qualifiers: Respiratory failure complication: hypercapnia Qualified Code(s): J96.22 - Acute and chronic respiratory failure with hypercapnia Is this a current diagnosis for this admission?: Yes (2) Acute exacerbation of chronic obstructive pulmonary disease (COPD) Is this a current diagnosis for this admission?: Yes (3) Type 2 diabetes mellitus Qualifiers: Diabetes mellitus complication status: with neurologic complications Diabetes mellitus complication detail: with polyneuropathy Diabetes mellitus termite helper insulin use: with skilled nursing use Qualified Code(s): E11.42 - Type 2 diabetes mellitus with diabetic polyneuropathy Is this a current diagnosis for this admission?: Yes - Plan Summary Plan Summary: Patient will continue IV Solu-Medrol, noninvasive positive pressure ventilation with BiPAP, IV antibiotic
[2017-06-05] MEDS: ATORVASTATIN CALCIUM 10 MG TABLET PO SCH (22:50)
[2017-06-05] MEDS: PRAMIPEXOLE DI-HCL 0.25 MG TABLET PO SCH (22:51)
[2017-06-05] MEDS: LEVOFLOXACIN 750 MG/D5W RTU 750 MG/150 ML RTUPB IV SCH (22:52)
[2017-06-06] MEDS: ACETAMINOPHEN 325 MG TABLET PO PRN (01:27)
[2017-06-06] MEDS: IPRATROPIUM/ALBUTEROL 0.5-2.5 MG/3 ML AMPUL NEB PRN (01:34)
[2017-06-06 05:09] LABS: HEMATOCRIT 38.2 % (37.9-51.0); HEMOGLOBIN 12.3 g/dL (13.5-17.0); MEAN CORPUSCULAR HEMOGLOBIN 28.5 pg (27.0-33.4); MEAN CORPUSCULAR HGB CONC 32.1 g/dL (32.0-36.0); MEAN CORPUSCULAR VOLUME 89 fl (80-97); PLATELET COUNT 247 10^3/uL (150-450); RED CELL DISTRIBUTION WIDTH 15.2 % (11.5-14.0)
[2017-06-06 05:20] LABS: ALANINE AMINOTRANSFERASE 26 U/L (21-72); ALBUMIN 4.2 g/dL (3.5-5.0); ALKALINE PHOSPHATASE 70 U/L (38-126); ANION GAP 10 (5-19); ASPARTATE AMINO TRANSFERASE 21 U/L (17-59); BILIRUBIN,DIRECT 0.3 mg/dL (0.0-0.4); BILIRUBIN,TOTAL 0.3 mg/dL (0.2-1.3); BLOOD UREA NITROGEN 38 mg/dL (7-20); CALCIUM 9.5 mg/dL (8.4-10.2); CARBON DIOXIDE 33 mmol/L (22-30); CHLORIDE 98 mmol/L (98-107); GLUCOSE 177 mg/dL (75-110); POTASSIUM 4.8 mmol/L (3.6-5.0); SODIUM 141.1 mmol/L (137-145); TOTAL PROTEIN 6.6 g/dL (6.3-8.2)
[2017-06-06] MEDS: HYDROCODONE/ACETAMINOPHEN 10-325 MG TABLET PO SCH ×3 (05:24→21:38)
[2017-06-06] MEDS: METHYLPREDNISOLONE INJ 125 MG/2 ML SDV IV SCH ×3 (05:25→21:41)
[2017-06-06 06:00] LABS: ABSOLUTE LYMPHOCYTES# (MANUAL) 0.8 10^3/uL (0.5-4.7); ABSOLUTE MONOCYTES # (MANUAL) 0.4 10^3/uL (0.1-1.4); ABSOLUTE NEUTROPHILS# (MANUAL) 10.8 10^3/uL (1.7-8.2); BASOPHILS % (MANUAL) 0 % (0-2); EOSINOPHILS % (MANUAL) 0 % (0-6); LYMPHOCYTES % (MANUAL) 3 % (13-45); MONOCYTES % (MANUAL) 3 % (3-13); SEGMENTED NEUTROPHILS % (MAN) 90 % (42-78); TOTAL CELLS COUNTED 100
[2017-06-06 06:04] LABS: ANISOCYTOSIS SLIGHT
[2017-06-06 06:05] LABS: HYPOCHROMASIA SLIGHT; PLATELET COMMENT ADEQUATE; PLATELET LARGE PRESENT
--- NOTE | 2017-06-06 07:49 | EKG REPORT ---
SEVERITY:- ABNORMAL ECG - SINUS OR ECTOPIC ATRIAL RHYTHM ATRIAL PREMATURE COMPLEX FIRST DEGREE AV BLOCK RIGHT BUNDLE BRANCH BLOCK : Confirmed by: Philippe Galvan MD 06-Jun-2017 07:48:33
[2017-06-06] MEDS: INSULIN LISPRO 100 UNIT/ML 3 ML VIAL SUBCUT PRN ×3 (08:58→23:05)
[2017-06-06] MEDS: METFORMIN HCL 500 MG TABLET PO SCH ×2 (08:59→18:11)
[2017-06-06] MEDS: METOPROLOL SUCCINATE 25 MG TAB.SR.24H PO SCH (09:51)
[2017-06-06] MEDS: POTASSIUM CHLORIDE 10 MEQ TABLET.SA PO SCH (09:51)
[2017-06-06] MEDS: ALLOPURINOL 100 MG TABLET PO SCH (09:51)
[2017-06-06] MEDS: FUROSEMIDE 40 MG TABLET PO SCH (09:52)
[2017-06-06] MEDS: RAMIPRIL 10 MG CAPSULE PO SCH (09:52)
[2017-06-06] MEDS: DULOXETINE HCL 30 MG CAPSULE.DR PO SCH (09:52)
[2017-06-06] MEDS: ASPIRIN 81 MG TABLET, CHEWABLE PO SCH (09:52)
[2017-06-06] MEDS: ENOXAPARIN SODIUM INJ 40 MG/0.4 ML DISP.SYRIN SUBCUT SCH (09:53)
[2017-06-06] MEDS: PIOGLITAZONE HCL 15 MG TABLET PO SCH (11:27)
[2017-06-06] MEDS: MONTELUKAST SODIUM 10 MG TABLET PO SCH (18:11)
--- NOTE | 2017-06-06 20:37 | PDOC PROGRESS REPORT ---
Subjective Progress Note for:: 06/06/17 Subjective:: Patient seen by the bedside, he is very anxious, sometime pulling on the facemask he continues to require, noninvasive positive pressure ventilation with BiPAP Reason For Visit: ACUTE ON CHRONIC RESPIRATORY FAILURE, COPD, Physical Exam Vital Signs: Temp Pulse Resp BP Pulse Ox 98.1 F 96 23 H 160/67 H 97 06/06/17 15:24 06/06/17 19:00 06/06/17 16:00 06/06/17 15:24 06/06/17 16:00 Intake & Output 06/05/17 06/06/17 06/07/17 06:59 06:59 06:59 Intake Total 135 764 8988 Output Total 650 1050 675 Balance -334 -75 365 Weight 130.7 kg 129.9 kg General appearance: PRESENT: hard of hearing, mild distress Eye exam: PRESENT: PERRLA Respiratory exam: PRESENT: decreased breath sounds Cardiovascular exam: PRESENT: +S1, +S2 GI/Abdominal exam: PRESENT: soft Neurological exam: PRESENT: alert Psychiatric exam: PRESENT: agitated, anxious Results Laboratory Results: 06/06/17 03:57 06/06/17 03:57 06/06/17 06/06/17 03:57 03:57 WBC 12.0 H RBC 4.30 L Hgb 12.3 L Hct 38.2 MCV 89 MCH 28.5 MCHC 32.1 RDW 15.2 H Plt Count 247 Seg Neutrophils % Not Reportable Lymphocytes % Not Reportable Monocytes % Not Reportable Eosinophils % Not Reportable Basophils % Not Reportable Absolute Neutrophils Not Reportable Absolute Lymphocytes Not Reportable Absolute Monocytes Not Reportable Absolute Eosinophils Not Reportable Absolute Basophils Not Reportable Sodium 141.1 Potassium 4.8 Chloride 98 Carbon Dioxide 33 H Anion Gap 10 BUN 38 H Creatinine 1.57 H Est GFR ( Amer) 52 L Est GFR (Non-Af Amer) 43 L Glucose 177 H Calcium 9.5 Total Bilirubin 0.3 AST 21 ALT 26 Alkaline Phosphatase 70 Total Protein 6.6 Albumin 4.2 06/04/17 18:40 Clean Catch Midstream Urine Culture - Final Mixed Urogenital Kathleen 06/04/17 06/04/17 06/05/17 18:40 18:40 00:27 Creatine Kinase 62 78 CK-MB (CK-2) 1.19 Troponin I 0.023 06/05/17 06/05/17 06/05/17 00:27 06:28 06:28 Creatine Kinase 86 CK-MB (CK-2) 1.54 1.88 Troponin I 0.032 0.033 Impressions: Chest CT 06/04/17 00:00 IMPRESSION: COPD. Stable pulmonary nodules. Chest X-Ray 06/04/17 12:58 IMPRESSION: Stable cardiomegaly. No new or active infiltrates. Assessment & Plan - Diagnosis (1) Acute and chronic respiratory failure Qualifiers: Respiratory failure complication: hypercapnia Qualified Code(s): J96.22 - Acute and chronic respiratory failure with hypercapnia Is this a current diagnosis for this admission?: Yes (2) Acute exacerbation of chronic obstructive pulmonary disease (COPD) Is this a current diagnosis for this admission?: Yes (3) Type 2 diabetes mellitus Qualifiers: Diabetes mellitus complication status: with neurologic complications Diabetes mellitus complication detail: with polyneuropathy Diabetes mellitus detention insulin use: with detention use Qualified Code(s): E11.42 - Type 2 diabetes mellitus with diabetic polyneuropathy Is this a current diagnosis for this admission?: Yes - Plan Summary Plan Summary: There is diminished air entry on both lung lyons, there is no overt wheezing, the Solu-Medrol dose to be reduced
[2017-06-06] MEDS: PRAMIPEXOLE DI-HCL 0.25 MG TABLET PO SCH (21:38)
[2017-06-06] MEDS: ATORVASTATIN CALCIUM 10 MG TABLET PO SCH (21:39)
[2017-06-06] MEDS: LEVOFLOXACIN 750 MG/D5W RTU 750 MG/150 ML RTUPB IV SCH (22:31)
[2017-06-07] MEDS: ACETAMINOPHEN 325 MG TABLET PO PRN (02:03)
[2017-06-07] MEDS: HYDROCODONE/ACETAMINOPHEN 10-325 MG TABLET PO SCH ×3 (05:08→21:14)
[2017-06-07] MEDS: METHYLPREDNISOLONE INJ 125 MG/2 ML SDV IV SCH ×3 (05:08→21:15)
[2017-06-07 07:26] LABS: HEMATOCRIT 37.2 % (37.9-51.0); HEMOGLOBIN 12.4 g/dL (13.5-17.0); MEAN CORPUSCULAR HGB CONC 33.3 g/dL (32.0-36.0); MEAN CORPUSCULAR VOLUME 87 fl (80-97); PLATELET COUNT 233 10^3/uL (150-450); RED BLOOD COUNT 4.27 10^6/uL (4.35-5.55); RED CELL DISTRIBUTION WIDTH 15.2 % (11.5-14.0); WHITE BLOOD COUNT 9.3 10^3/uL (4.0-10.5)
[2017-06-07 07:51] LABS: ALANINE AMINOTRANSFERASE 25 U/L (21-72); ALKALINE PHOSPHATASE 61 U/L (38-126); ANION GAP 11 (5-19); ASPARTATE AMINO TRANSFERASE 28 U/L (17-59); BILIRUBIN,DIRECT 0.3 mg/dL (0.0-0.4); BILIRUBIN,TOTAL 0.3 mg/dL (0.2-1.3); BLOOD UREA NITROGEN 64 mg/dL (7-20); CALCIUM 9.1 mg/dL (8.4-10.2); CARBON DIOXIDE 31 mmol/L (22-30); CHLORIDE 97 mmol/L (98-107); GLUCOSE 175 mg/dL (75-110); POTASSIUM 4.9 mmol/L (3.6-5.0); SODIUM 139.2 mmol/L (137-145); TOTAL PROTEIN 6.2 g/dL (6.3-8.2)
--- NOTE | 2017-06-07 08:06 | EKG REPORT ---
SEVERITY:- ABNORMAL ECG - POSSIBLE ATRIAL FIB VENTRICULAR PREMATURE COMPLEX RIGHT BUNDLE BRANCH BLOCK : Confirmed by: Philippe Galvan MD 07-Jun-2017 08:04:49
[2017-06-07] MEDS: METFORMIN HCL 500 MG TABLET PO SCH ×2 (08:08→18:31)
[2017-06-07 08:44] LABS: ABSOLUTE LYMPHOCYTES# (MANUAL) 0.2 10^3/uL (0.5-4.7); ABSOLUTE MONOCYTES # (MANUAL) 0.2 10^3/uL (0.1-1.4); ABSOLUTE NEUTROPHILS# (MANUAL) 8.9 10^3/uL (1.7-8.2); ANISOCYTOSIS SLIGHT; BASOPHILS % (MANUAL) 0 % (0-2); EOSINOPHILS % (MANUAL) 0 % (0-6); HYPOCHROMASIA SLIGHT; LYMPHOCYTES % (MANUAL) 2 % (13-45); MONOCYTES % (MANUAL) 2 % (3-13); PLATELET COMMENT ADEQUATE; SEGMENTED NEUTROPHILS % (MAN) 96 % (42-78); TOTAL CELLS COUNTED 100; TOXIC GRANULATION SLIGHT
[2017-06-07] MEDS: RAMIPRIL 10 MG CAPSULE PO SCH (13:27)
[2017-06-07] MEDS: POTASSIUM CHLORIDE 10 MEQ TABLET.SA PO SCH (13:28)
[2017-06-07] MEDS: METOPROLOL SUCCINATE 25 MG TAB.SR.24H PO SCH (13:29)
[2017-06-07] MEDS: ASPIRIN 81 MG TABLET, CHEWABLE PO SCH (13:29)
[2017-06-07] MEDS: ALLOPURINOL 100 MG TABLET PO SCH (13:29)
[2017-06-07] MEDS: FUROSEMIDE 40 MG TABLET PO SCH (13:30)
[2017-06-07] MEDS: DULOXETINE HCL 30 MG CAPSULE.DR PO SCH (13:30)
[2017-06-07] MEDS: PIOGLITAZONE HCL 15 MG TABLET PO SCH (13:30)
[2017-06-07] MEDS: ENOXAPARIN SODIUM INJ 40 MG/0.4 ML DISP.SYRIN SUBCUT SCH (13:31)
[2017-06-07] MEDS: MONTELUKAST SODIUM 10 MG TABLET PO SCH (18:31)
[2017-06-07] MEDS: LEVOFLOXACIN 750 MG TABLET PO SCH (21:15)
[2017-06-07] MEDS: ATORVASTATIN CALCIUM 10 MG TABLET PO SCH (21:15)
[2017-06-07] MEDS: PRAMIPEXOLE DI-HCL 0.25 MG TABLET PO SCH (21:16)
[2017-06-07] MEDS: INSULIN LISPRO 100 UNIT/ML 3 ML VIAL SUBCUT PRN (21:51)
--- NOTE | 2017-06-07 22:22 | PDOC PROGRESS REPORT ---
Subjective Progress Note for:: 06/07/17 Subjective:: Patient was seen by the bedside, he developed acute kidney injury the serum creatinine is elevated most likely from diuretic, furosemide. The furosemide will be discontinued with continued to monitor kidney function very closely Reason For Visit: ACUTE ON CHRONIC RESPIRATORY FAILURE, COPD, Physical Exam Vital Signs: Temp Pulse Resp BP Pulse Ox 98.4 F 69 28 H 136/65 H 98 06/07/17 19:50 06/07/17 19:50 06/07/17 19:50 06/07/17 20:32 06/07/17 19:50 Intake & Output 06/06/17 06/07/17 06/08/17 06:59 06:59 06:59 Intake Total 975 1840 2020 Output Total 1050 1625 900 Balance -75 215 1120 Weight 129.9 kg 129.7 kg General appearance: PRESENT: mild distress Head exam: PRESENT: atraumatic, normocephalic Eye exam: PRESENT: conjunctiva pink, EOMI, PERRLA. ABSENT: scleral icterus Ear exam: PRESENT: normal external ear exam Mouth exam: PRESENT: moist, tongue midline Neck exam: PRESENT: full ROM Respiratory exam: PRESENT: decreased breath sounds Cardiovascular exam: PRESENT: RRR, +S2 Murmur grade: 3 Pulses: PRESENT: normal dorsalis pedis pul, +2 pedal pulses bilateral Vascular exam: PRESENT: normal capillary refill GI/Abdominal exam: PRESENT: normal bowel sounds, soft Rectal exam: PRESENT: deferred Neurological exam: PRESENT: alert, awake, oriented to person, oriented to place , oriented to time, oriented to situation, CN II-XII grossly intact Psychiatric exam: PRESENT: appropriate affect, normal mood Skin exam: PRESENT: dry, intact, warm. ABSENT: cyanosis, rash Results Laboratory Results: 06/07/17 06:44 06/07/17 06:44 06/07/17 06/07/17 06:44 06:44 WBC 9.3 RBC 4.27 L Hgb 12.4 L Hct 37.2 L MCV 87 MCH 29.0 MCHC 33.3 RDW 15.2 H Plt Count 233 Seg Neutrophils % Not Reportable Lymphocytes % Not Reportable Monocytes % Not Reportable Eosinophils % Not Reportable Basophils % Not Reportable Absolute Neutrophils Not Reportable Absolute Lymphocytes Not Reportable Absolute Monocytes Not Reportable Absolute Eosinophils Not Reportable Absolute Basophils Not Reportable Sodium 139.2 Potassium 4.9 Chloride 97 L Carbon Dioxide 31 H Anion Gap 11 BUN 64 H Creatinine 1.67 H Est GFR ( Amer) 49 L Est GFR (Non-Af Amer) 40 L Glucose 175 H Calcium 9.1 Total Bilirubin 0.3 AST 28 ALT 25 Alkaline Phosphatase 61 Total Protein 6.2 L Albumin 4.0 06/04/17 06/04/17 06/05/17 18:40 18:40 00:27 Creatine Kinase 62 78 CK-MB (CK-2) 1.19 Troponin I 0.023 06/05/17 06/05/17 06/05/17 00:27 06:28 06:28 Creatine Kinase 86 CK-MB (CK-2) 1.54 1.88 Troponin I 0.032 0.033 Impressions: Chest CT 06/04/17 00:00 IMPRESSION: COPD. Stable pulmonary nodules. Chest X-Ray 06/04/17 12:58 IMPRESSION: Stable cardiomegaly. No new or active infiltrates. Assessment & Plan - Diagnosis (1) Acute and chronic respiratory failure Qualifiers: Respiratory failure complication: hypercapnia Qualified Code(s): J96.22 - Acute and chronic respiratory failure with hypercapnia Is this a current diagnosis for this admission?: Yes (2) Acute exacerbation of chronic obstructive pulmonary disease (COPD) Is this a current diagnosis for this admission?: Yes (3) Type 2 diabetes mellitus Qualifiers: Diabetes mellitus complication status: with neurologic complications Diabetes mellitus complication detail: with polyneuropathy Diabetes mellitus long term care phlebotomist insulin use: with prison use Qualified Code(s): E11.42 - Type 2 diabetes mellitus with diabetic polyneuropathy Is this a current diagnosis for this admission?: Yes - Plan Summary Plan Summary: We will discontinue intravenous Solu-Medrol, start p.o. prednisone, discontinue furosemide, patient continues to require noninvasive positive pressure ventilation, BiPAP
[2017-06-07] MEDS ORDERED: PREDNISONE 20 MG TABLET PO ONE (22:45)
[2017-06-08] MEDS: HYDROCODONE/ACETAMINOPHEN 10-325 MG TABLET PO SCH ×3 (05:23→21:34)
--- NOTE | 2017-06-08 07:58 | EKG REPORT ---
SEVERITY:- ABNORMAL ECG - ATRIAL FIBRILLATION, V-RATE 61-89 VENTRICULAR BIGEMINY RIGHT BUNDLE BRANCH BLOCK : Confirmed by: Philippe Galvan MD 08-Jun-2017 07:57:43
[2017-06-08] MEDS: METFORMIN HCL 500 MG TABLET PO SCH ×2 (08:07→17:11)
[2017-06-08] MEDS: INSULIN LISPRO 100 UNIT/ML 3 ML VIAL SUBCUT PRN ×2 (08:07→17:12)
[2017-06-08] MEDS: POTASSIUM CHLORIDE 10 MEQ TABLET.SA PO SCH (09:15)
[2017-06-08] MEDS: ASPIRIN 81 MG TABLET, CHEWABLE PO SCH (09:15)
[2017-06-08] MEDS: DULOXETINE HCL 30 MG CAPSULE.DR PO SCH (09:15)
[2017-06-08] MEDS: PREDNISONE 20 MG TABLET PO SCH (09:16)
[2017-06-08] MEDS: RAMIPRIL 10 MG CAPSULE PO SCH (09:16)
[2017-06-08] MEDS: ALLOPURINOL 100 MG TABLET PO SCH (09:16)
[2017-06-08] MEDS: METOPROLOL SUCCINATE 25 MG TAB.SR.24H PO SCH (09:16)
[2017-06-08] MEDS: PIOGLITAZONE HCL 15 MG TABLET PO SCH (09:17)
[2017-06-08] MEDS: ENOXAPARIN SODIUM INJ 40 MG/0.4 ML DISP.SYRIN SUBCUT SCH (09:17)
[2017-06-08] MEDS: MONTELUKAST SODIUM 10 MG TABLET PO SCH (17:12)
[2017-06-08] MEDS: LEVOFLOXACIN 750 MG TABLET PO SCH (21:33)
[2017-06-08] MEDS: ATORVASTATIN CALCIUM 10 MG TABLET PO SCH (21:35)
[2017-06-08] MEDS: PRAMIPEXOLE DI-HCL 0.25 MG TABLET PO SCH (21:35)
--- NOTE | 2017-06-08 23:56 | PDOC PROGRESS REPORT ---
Subjective Progress Note for:: 06/08/17 Subjective:: Patient was seen by the bedside, he is not as confused as he was yesterday, no more requiring positive pressure ventilation with BiPAP Reason For Visit: ACUTE ON CHRONIC RESPIRATORY FAILURE, COPD, Physical Exam Vital Signs: Temp Pulse Resp BP Pulse Ox 97.9 F 69 18 145/59 H 100 06/08/17 19:05 06/08/17 19:05 06/08/17 19:05 06/08/17 19:05 06/08/17 19:05 Intake & Output 06/07/17 06/08/17 06/09/17 06:59 06:59 06:59 Intake Total 1840 2165 700 Output Total 9178 234 3731 Balance 215 1265 -625 Weight 129.7 kg 127.2 kg General appearance: PRESENT: no acute distress Eye exam: PRESENT: PERRLA Respiratory exam: PRESENT: rhonchi Cardiovascular exam: PRESENT: +S1, +S2 Murmur grade: 3 GI/Abdominal exam: PRESENT: soft Neurological exam: PRESENT: alert Results Laboratory Results: 06/07/17 06:44 06/07/17 06:44 06/04/17 06/04/17 06/05/17 18:40 18:40 00:27 Creatine Kinase 62 78 CK-MB (CK-2) 1.19 Troponin I 0.023 06/05/17 06/05/17 06/05/17 00:27 06:28 06:28 Creatine Kinase 86 CK-MB (CK-2) 1.54 1.88 Troponin I 0.032 0.033 Impressions: Chest CT 06/04/17 00:00 IMPRESSION: COPD. Stable pulmonary nodules. Chest X-Ray 06/04/17 12:58 IMPRESSION: Stable cardiomegaly. No new or active infiltrates. Assessment & Plan - Diagnosis (1) Acute and chronic respiratory failure Qualifiers: Respiratory failure complication: hypercapnia Qualified Code(s): J96.22 - Acute and chronic respiratory failure with hypercapnia Is this a current diagnosis for this admission?: Yes (2) Acute exacerbation of chronic obstructive pulmonary disease (COPD) Is this a current diagnosis for this admission?: Yes (3) Type 2 diabetes mellitus Qualifiers: Diabetes mellitus complication status: with neurologic complications Diabetes mellitus complication detail: with polyneuropathy Diabetes mellitus exterminator termite insulin use: with exterminator termite use Qualified Code(s): E11.42 - Type 2 diabetes mellitus with diabetic polyneuropathy Is this a current diagnosis for this admission?: Yes (4) Acute kidney injury Is this a current diagnosis for this admission?: Yes (5) Proteinuria Qualifiers: Proteinuria type: unspecified Qualified Code(s): R80.9 - Proteinuria, unspecified Is this a current diagnosis for this admission?: Yes Plan: He has known nephrotic range proteinuria, normal serum albumin, we will request for urine protein electrophoresis to rule out [place] protein.
[2017-06-09] MEDS: HYDROCODONE/ACETAMINOPHEN 10-325 MG TABLET PO SCH ×3 (05:16→22:46)
[2017-06-09] MEDS: ENOXAPARIN SODIUM INJ 40 MG/0.4 ML DISP.SYRIN SUBCUT SCH (09:29)
[2017-06-09] MEDS: PIOGLITAZONE HCL 15 MG TABLET PO SCH (09:29)
[2017-06-09] MEDS: ASPIRIN 81 MG TABLET, CHEWABLE PO SCH (09:29)
[2017-06-09] MEDS: METOPROLOL SUCCINATE 25 MG TAB.SR.24H PO SCH (09:29)
[2017-06-09] MEDS: DULOXETINE HCL 30 MG CAPSULE.DR PO SCH (09:29)
[2017-06-09] MEDS: PREDNISONE 20 MG TABLET PO SCH (09:29)
[2017-06-09] MEDS: POTASSIUM CHLORIDE 10 MEQ TABLET.SA PO SCH (09:29)
[2017-06-09] MEDS: RAMIPRIL 10 MG CAPSULE PO SCH (09:30)
[2017-06-09] MEDS: ALLOPURINOL 100 MG TABLET PO SCH (09:30)
[2017-06-09] MEDS: METFORMIN HCL 500 MG TABLET PO SCH ×2 (09:30→17:58)
--- NOTE | 2017-06-09 12:07 | PDOC PROGRESS REPORT ---
Subjective Progress Note for:: 06/09/17 Subjective:: I saw patient in the room with family I recommend that he goes to [facility] for rehabilitation but they declined the option of physical therapy. Patient is less symptomatic now on nasal cannula at 2 L oxygen per minute. Reason For Visit: ACUTE ON CHRONIC RESPIRATORY FAILURE, COPD, Physical Exam Vital Signs: Temp Pulse Resp BP Pulse Ox 97.9 F 59 L 22 H 154/54 H 94 06/09/17 07:26 06/09/17 07:26 06/09/17 07:26 06/09/17 07:26 06/09/17 08:00 Intake & Output 06/08/17 06/09/17 06/10/17 06:59 06:59 06:59 Intake Total 2165 1600 Output Total 900 2600 Balance 1265 -1000 Weight 127.2 kg 125.3 kg General appearance: PRESENT: mild distress Eye exam: PRESENT: PERRLA Respiratory exam: PRESENT: clear to auscultation lianne Cardiovascular exam: PRESENT: +S1, +S2 Murmur grade: 3 GI/Abdominal exam: PRESENT: soft Neurological exam: PRESENT: alert, CN II-XII grossly intact Results Laboratory Results: 06/07/17 06:44 06/07/17 06:44 06/04/17 06/04/17 06/05/17 18:40 18:40 00:27 Creatine Kinase 62 78 CK-MB (CK-2) 1.19 Troponin I 0.023 06/05/17 06/05/17 06/05/17 00:27 06:28 06:28 Creatine Kinase 86 CK-MB (CK-2) 1.54 1.88 Troponin I 0.032 0.033 Impressions: Chest CT 06/04/17 00:00 IMPRESSION: COPD. Stable pulmonary nodules. Chest X-Ray 06/04/17 12:58 IMPRESSION: Stable cardiomegaly. No new or active infiltrates. Assessment & Plan - Diagnosis (1) Acute and chronic respiratory failure Qualifiers: Respiratory failure complication: hypercapnia Qualified Code(s): J96.22 - Acute and chronic respiratory failure with hypercapnia Is this a current diagnosis for this admission?: Yes (2) Acute exacerbation of chronic obstructive pulmonary disease (COPD) Is this a current diagnosis for this admission?: Yes (3) Type 2 diabetes mellitus Qualifiers: Diabetes mellitus complication status: with neurologic complications Diabetes mellitus complication detail: with polyneuropathy Diabetes mellitus intermediate insulin use: with exterminator termite use Qualified Code(s): E11.42 - Type 2 diabetes mellitus with diabetic polyneuropathy Is this a current diagnosis for this admission?: Yes (4) Acute kidney injury Is this a current diagnosis for this admission?: Yes (5) Proteinuria Qualifiers: Proteinuria type: unspecified Qualified Code(s): R80.9 - Proteinuria, unspecified Is this a current diagnosis for this admission?: Yes
[2017-06-09] MEDS ORDERED: ONDANSETRON HCL INJ/PF 4 MG/2 ML SDV IV PRN (12:29)
[2017-06-09] MEDS: IPRATROPIUM/ALBUTEROL 0.5-2.5 MG/3 ML AMPUL NEB PRN (13:00)
[2017-06-09] MEDS: INSULIN LISPRO 100 UNIT/ML 3 ML VIAL SUBCUT PRN (17:58)
[2017-06-09] MEDS: MONTELUKAST SODIUM 10 MG TABLET PO SCH (17:58)
[2017-06-09] MEDS: LEVOFLOXACIN 750 MG TABLET PO SCH (22:46)
[2017-06-09] MEDS: PRAMIPEXOLE DI-HCL 0.25 MG TABLET PO SCH (22:46)
[2017-06-09] MEDS: ATORVASTATIN CALCIUM 10 MG TABLET PO SCH (22:47)
[2017-06-10] MEDS: HYDROCODONE/ACETAMINOPHEN 10-325 MG TABLET PO SCH ×3 (05:47→22:21)
[2017-06-10] MEDS: PIOGLITAZONE HCL 15 MG TABLET PO SCH (10:52)
[2017-06-10] MEDS: METFORMIN HCL 500 MG TABLET PO SCH ×2 (10:52→18:14)
[2017-06-10] MEDS: ASPIRIN 81 MG TABLET, CHEWABLE PO SCH (10:52)
[2017-06-10] MEDS: DULOXETINE HCL 30 MG CAPSULE.DR PO SCH (10:53)
[2017-06-10] MEDS: PREDNISONE 20 MG TABLET PO SCH (10:53)
[2017-06-10] MEDS: ALLOPURINOL 100 MG TABLET PO SCH (10:53)
[2017-06-10] MEDS: RAMIPRIL 10 MG CAPSULE PO SCH (10:53)
[2017-06-10] MEDS: METOPROLOL SUCCINATE 25 MG TAB.SR.24H PO SCH (10:54)
[2017-06-10] MEDS: ENOXAPARIN SODIUM INJ 40 MG/0.4 ML DISP.SYRIN SUBCUT SCH (10:54)
[2017-06-10] MEDS: POTASSIUM CHLORIDE 10 MEQ TABLET.SA PO SCH (10:54)
--- NOTE | 2017-06-10 17:10 | PDOC PROGRESS REPORT ---
Subjective Progress Note for:: 06/10/17 Subjective:: Patient was seen by the bedside, there is no new complaints today Reason For Visit: ACUTE ON CHRONIC RESPIRATORY FAILURE, COPD, Physical Exam Vital Signs: Temp Pulse Resp BP Pulse Ox 97.9 F 61 17 161/68 H 96 06/10/17 07:29 06/10/17 07:29 06/10/17 15:09 06/10/17 07:29 06/10/17 15:09 Intake & Output 06/09/17 06/10/17 06/11/17 06:59 06:59 06:59 Intake Total 1600 1584 237 Output Total 2600 2075 350 Balance -1000 -491 -113 Weight 125.3 kg 126.4 kg General appearance: PRESENT: no acute distress Head exam: PRESENT: atraumatic, normocephalic Eye exam: PRESENT: PERRLA Ear exam: PRESENT: normal external ear exam Mouth exam: PRESENT: moist, tongue midline Neck exam: PRESENT: full ROM Respiratory exam: PRESENT: clear to auscultation lianne Cardiovascular exam: PRESENT: RRR, +S1, +S2 Murmur grade: 3 Vascular exam: PRESENT: normal capillary refill GI/Abdominal exam: PRESENT: normal bowel sounds, soft Rectal exam: PRESENT: deferred Neurological exam: PRESENT: alert. ABSENT: motor sensory deficit Skin exam: PRESENT: dry, intact, warm. ABSENT: cyanosis, rash Results Laboratory Results: 06/07/17 06:44 06/07/17 06:44 06/04/17 19:30 Blood Blood Culture - Final NO GROWTH IN 5 DAYS 06/04/17 18:40 Blood Blood Culture - Final NO GROWTH IN 5 DAYS 06/04/17 06/04/17 06/05/17 18:40 18:40 00:27 Creatine Kinase 62 78 CK-MB (CK-2) 1.19 Troponin I 0.023 06/05/17 06/05/17 06/05/17 00:27 06:28 06:28 Creatine Kinase 86 CK-MB (CK-2) 1.54 1.88 Troponin I 0.032 0.033 Impressions: Chest CT 06/04/17 00:00 IMPRESSION: COPD. Stable pulmonary nodules. Chest X-Ray 06/04/17 12:58 IMPRESSION: Stable cardiomegaly. No new or active infiltrates. Assessment & Plan - Diagnosis (1) Acute and chronic respiratory failure Qualifiers: Respiratory failure complication: hypercapnia Qualified Code(s): J96.22 - Acute and chronic respiratory failure with hypercapnia Is this a current diagnosis for this admission?: Yes (2) Acute exacerbation of chronic obstructive pulmonary disease (COPD) Is this a current diagnosis for this admission?: Yes (3) Type 2 diabetes mellitus Qualifiers: Diabetes mellitus complication status: with neurologic complications Diabetes mellitus complication detail: with polyneuropathy Diabetes mellitus detention insulin use: with rodent exterminator use Qualified Code(s): E11.42 - Type 2 diabetes mellitus with diabetic polyneuropathy Is this a current diagnosis for this admission?: Yes (4) Acute kidney injury Is this a current diagnosis for this admission?: Yes (5) Proteinuria Qualifiers: Proteinuria type: unspecified Qualified Code(s): R80.9 - Proteinuria, unspecified Is this a current diagnosis for this admission?: Yes
[2017-06-10 17:50] LABS: ABSOLUTE LYMPHOCYTES (AUTO) 0.4 10^3/uL (0.5-4.7); ABSOLUTE MONOCYTES (AUTO) 0.2 10^3/uL (0.1-1.4); ABSOLUTE NEUT (AUTO) 6.5 10^3/uL (1.7-8.2); BASOPHILS % (AUTO) 0.4 % (0-2); HEMATOCRIT 40.5 % (37.9-51.0); HEMOGLOBIN 13.3 g/dL (13.5-17.0); LYMPHOCYTES % (AUTO) 5.2 % (13-45); MEAN CORPUSCULAR HEMOGLOBIN 28.9 pg (27.0-33.4); MEAN CORPUSCULAR HGB CONC 32.8 g/dL (32.0-36.0); MEAN CORPUSCULAR VOLUME 88 fl (80-97); MONOCYTES % (AUTO) 2.3 % (3-13); PLATELET COUNT 203 10^3/uL (150-450); RED CELL DISTRIBUTION WIDTH 15.1 % (11.5-14.0); SEGMENTED NEUTROPHILS % (AUTO) 92.1 % (42-78); TOTAL CELLS COUNTED % (AUTO) 100 %; WHITE BLOOD COUNT 7.1 10^3/uL (4.0-10.5)
[2017-06-10] MEDS: MONTELUKAST SODIUM 10 MG TABLET PO SCH (18:14)
[2017-06-10 18:15] LABS: ALANINE AMINOTRANSFERASE 33 U/L (21-72); ALBUMIN 3.7 g/dL (3.5-5.0); ALKALINE PHOSPHATASE 50 U/L (38-126); ANION GAP 7 (5-19); ASPARTATE AMINO TRANSFERASE 26 U/L (17-59); BILIRUBIN,DIRECT 0.3 mg/dL (0.0-0.4); BILIRUBIN,TOTAL 0.7 mg/dL (0.2-1.3); BLOOD UREA NITROGEN 53 mg/dL (7-20); CALCIUM 8.8 mg/dL (8.4-10.2); CARBON DIOXIDE 35 mmol/L (22-30); CHLORIDE 95 mmol/L (98-107); GLUCOSE 296 mg/dL (75-110); POTASSIUM 5.5 mmol/L (3.6-5.0); SODIUM 136.9 mmol/L (137-145); TOTAL PROTEIN 5.8 g/dL (6.3-8.2)
[2017-06-10] MEDS: INSULIN LISPRO 100 UNIT/ML 3 ML VIAL SUBCUT PRN ×2 (18:30→22:20)
[2017-06-10] MEDS ORDERED: METOPROLOL SUCCINATE 25 MG TAB.SR.24H PO ONE (19:30)
[2017-06-10] MEDS: PRAMIPEXOLE DI-HCL 0.25 MG TABLET PO SCH (22:20)
[2017-06-10] MEDS: ATORVASTATIN CALCIUM 10 MG TABLET PO SCH (22:21)
[2017-06-10] MEDS: LEVOFLOXACIN 750 MG TABLET PO SCH (22:21)
[2017-06-11] MEDS: ACETAMINOPHEN 325 MG TABLET PO PRN (00:56)
[2017-06-11 05:03] LABS: ABSOLUTE LYMPHOCYTES (AUTO) 0.9 10^3/uL (0.5-4.7); ABSOLUTE MONOCYTES (AUTO) 0.7 10^3/uL (0.1-1.4); ABSOLUTE NEUT (AUTO) 6.8 10^3/uL (1.7-8.2); BASOPHILS % (AUTO) 0.4 % (0-2); EOSINOPHILS % (AUTO) 0.2 % (0-6); HEMATOCRIT 39.4 % (37.9-51.0); HEMOGLOBIN 12.7 g/dL (13.5-17.0); LYMPHOCYTES % (AUTO) 11.1 % (13-45); MEAN CORPUSCULAR HEMOGLOBIN 28.4 pg (27.0-33.4); MEAN CORPUSCULAR HGB CONC 32.1 g/dL (32.0-36.0); MEAN CORPUSCULAR VOLUME 88 fl (80-97); MONOCYTES % (AUTO) 8.7 % (3-13); PLATELET COUNT 169 10^3/uL (150-450); RED BLOOD COUNT 4.46 10^6/uL (4.35-5.55); RED CELL DISTRIBUTION WIDTH 15.1 % (11.5-14.0); SEGMENTED NEUTROPHILS % (AUTO) 79.6 % (42-78); TOTAL CELLS COUNTED % (AUTO) 100 %; WHITE BLOOD COUNT 8.6 10^3/uL (4.0-10.5)
[2017-06-11] MEDS: HYDROCODONE/ACETAMINOPHEN 10-325 MG TABLET PO SCH ×3 (05:17→22:14)
[2017-06-11 05:21] LABS: ALANINE AMINOTRANSFERASE 37 U/L (21-72); ALBUMIN 3.2 g/dL (3.5-5.0); ALKALINE PHOSPHATASE 42 U/L (38-126); ANION GAP 6 (5-19); ASPARTATE AMINO TRANSFERASE 22 U/L (17-59); BILIRUBIN,DIRECT 0.3 mg/dL (0.0-0.4); BILIRUBIN,TOTAL 0.7 mg/dL (0.2-1.3); BLOOD UREA NITROGEN 49 mg/dL (7-20); CALCIUM 8.8 mg/dL (8.4-10.2); CARBON DIOXIDE 35 mmol/L (22-30); CHLORIDE 98 mmol/L (98-107); GLUCOSE 130 mg/dL (75-110); POTASSIUM 4.7 mmol/L (3.6-5.0); SODIUM 139.3 mmol/L (137-145); TOTAL PROTEIN 5.3 g/dL (6.3-8.2)
[2017-06-11] MEDS: ENOXAPARIN SODIUM INJ 40 MG/0.4 ML DISP.SYRIN SUBCUT SCH (09:07)
[2017-06-11] MEDS: DULOXETINE HCL 30 MG CAPSULE.DR PO SCH (09:07)
[2017-06-11] MEDS: ASPIRIN 81 MG TABLET, CHEWABLE PO SCH (09:08)
[2017-06-11] MEDS: METFORMIN HCL 500 MG TABLET PO SCH ×2 (09:08→17:01)
[2017-06-11] MEDS: ALLOPURINOL 100 MG TABLET PO SCH (09:08)
[2017-06-11] MEDS: METOPROLOL SUCCINATE 25 MG TAB.SR.24H PO SCH (09:08)
[2017-06-11] MEDS: PREDNISONE 20 MG TABLET PO SCH (09:08)
[2017-06-11] MEDS: POTASSIUM CHLORIDE 10 MEQ TABLET.SA PO SCH (09:08)
[2017-06-11] MEDS: PIOGLITAZONE HCL 15 MG TABLET PO SCH (09:09)
[2017-06-11] MEDS: RAMIPRIL 10 MG CAPSULE PO SCH (09:09)
[2017-06-11] MEDS: INSULIN LISPRO 100 UNIT/ML 3 ML VIAL SUBCUT PRN ×3 (13:17→22:15)
[2017-06-11] MEDS ORDERED: BUSPIRONE HCL 10 MG TABLET PO ONE (15:15)
[2017-06-11] MEDS: MONTELUKAST SODIUM 10 MG TABLET PO SCH (17:01)
[2017-06-11] MEDS: IPRATROPIUM/ALBUTEROL 0.5-2.5 MG/3 ML AMPUL NEB PRN (21:15)
--- NOTE | 2017-06-11 21:38 | PDOC PROGRESS REPORT ---
Subjective Progress Note for:: 06/11/17 Subjective:: Patient is very anxious agitated Reason For Visit: ACUTE ON CHRONIC RESPIRATORY FAILURE, COPD, Physical Exam Vital Signs: Temp Pulse Resp BP Pulse Ox 97.8 F 73 18 141/53 H 100 06/11/17 19:22 06/11/17 19:22 06/11/17 19:22 06/11/17 19:22 06/11/17 19:22 Intake & Output 06/10/17 06/11/17 06/12/17 06:59 06:59 06:59 Intake Total 1584 1556 600 Output Total 2070 2400 620 Balance -491 -844 -20 Weight 126.4 kg 124.5 kg General appearance: PRESENT: no acute distress Head exam: PRESENT: atraumatic, normocephalic Eye exam: PRESENT: conjunctiva pink, EOMI, PERRLA Ear exam: PRESENT: normal external ear exam Mouth exam: PRESENT: moist, tongue midline Neck exam: PRESENT: full ROM Respiratory exam: PRESENT: clear to auscultation lianne Cardiovascular exam: PRESENT: RRR, +S1, +S2 Murmur grade: 3 Vascular exam: PRESENT: normal capillary refill GI/Abdominal exam: PRESENT: normal bowel sounds, soft Rectal exam: PRESENT: deferred Neurological exam: PRESENT: alert. ABSENT: motor sensory deficit Psychiatric exam: PRESENT: appropriate affect, normal mood. ABSENT: homicidal ideation, suicidal ideation Skin exam: PRESENT: dry, intact, warm. ABSENT: cyanosis, rash Results Laboratory Results: 06/11/17 04:04 06/11/17 04:04 06/11/17 06/11/17 04:04 04:04 WBC 8.6 RBC 4.46 Hgb 12.7 L Hct 39.4 MCV 88 MCH 28.4 MCHC 32.1 RDW 15.1 H Plt Count 169 Seg Neutrophils % 79.6 H Lymphocytes % 11.1 L Monocytes % 8.7 Eosinophils % 0.2 Basophils % 0.4 Absolute Neutrophils 6.8 Absolute Lymphocytes 0.9 Absolute Monocytes 0.7 Absolute Eosinophils 0.0 Absolute Basophils 0.0 Sodium 139.3 Potassium 4.7 Chloride 98 Carbon Dioxide 35 H Anion Gap 6 BUN 49 H Creatinine 1.31 H Est GFR ( Amer) > 60 Est GFR (Non-Af Amer) 53 L Glucose 130 H Calcium 8.8 Total Bilirubin 0.7 AST 22 ALT 37 Alkaline Phosphatase 42 Total Protein 5.3 L Albumin 3.2 L 06/04/17 06/04/17 06/05/17 18:40 18:40 00:27 Creatine Kinase 62 78 CK-MB (CK-2) 1.19 Troponin I 0.023 06/05/17 06/05/17 06/05/17 00:27 06:28 06:28 Creatine Kinase 86 CK-MB (CK-2) 1.54 1.88 Troponin I 0.032 0.033 Impressions: Chest CT 06/04/17 00:00 IMPRESSION: COPD. Stable pulmonary nodules. Chest X-Ray 06/04/17 12:58 IMPRESSION: Stable cardiomegaly. No new or active infiltrates. Assessment & Plan - Diagnosis (1) Acute and chronic respiratory failure Qualifiers: Respiratory failure complication: hypercapnia Qualified Code(s): J96.22 - Acute and chronic respiratory failure with hypercapnia Is this a current diagnosis for this admission?: Yes (2) Acute exacerbation of chronic obstructive pulmonary disease (COPD) Is this a current diagnosis for this admission?: Yes (3) Type 2 diabetes mellitus Qualifiers: Diabetes mellitus complication status: with neurologic complications Diabetes mellitus complication detail: with polyneuropathy Diabetes mellitus group home insulin use: with negative turner apprentice use Qualified Code(s): E11.42 - Type 2 diabetes mellitus with diabetic polyneuropathy Is this a current diagnosis for this admission?: Yes (4) Acute kidney injury Is this a current diagnosis for this admission?: Yes (5) Proteinuria Qualifiers: Proteinuria type: unspecified Qualified Code(s): R80.9 - Proteinuria, unspecified Is this a current diagnosis for this admission?: Yes
[2017-06-11] MEDS: ATORVASTATIN CALCIUM 10 MG TABLET PO SCH (22:14)
[2017-06-11] MEDS: BUSPIRONE HCL 10 MG TABLET PO SCH (22:14)
[2017-06-11] MEDS: LEVOFLOXACIN 750 MG TABLET PO SCH (22:15)
[2017-06-11] MEDS: PRAMIPEXOLE DI-HCL 0.25 MG TABLET PO SCH (22:15)
[2017-06-12] MEDS: HYDROCODONE/ACETAMINOPHEN 10-325 MG TABLET PO SCH ×3 (06:14→21:05)
[2017-06-12] MEDS: ASPIRIN 81 MG TABLET, CHEWABLE PO SCH (08:54)
[2017-06-12] MEDS: ALLOPURINOL 100 MG TABLET PO SCH (08:54)
[2017-06-12] MEDS: METFORMIN HCL 500 MG TABLET PO SCH ×2 (08:54→17:02)
[2017-06-12] MEDS: PREDNISONE 20 MG TABLET PO SCH (08:54)
[2017-06-12] MEDS: POTASSIUM CHLORIDE 10 MEQ TABLET.SA PO SCH (08:54)
[2017-06-12] MEDS: RAMIPRIL 10 MG CAPSULE PO SCH (08:55)
[2017-06-12] MEDS: BUSPIRONE HCL 10 MG TABLET PO SCH ×2 (08:55→21:06)
[2017-06-12] MEDS: DULOXETINE HCL 30 MG CAPSULE.DR PO SCH (08:55)
[2017-06-12] MEDS: METOPROLOL SUCCINATE 25 MG TAB.SR.24H PO SCH (08:56)
[2017-06-12] MEDS: PIOGLITAZONE HCL 15 MG TABLET PO SCH (08:56)
[2017-06-12] MEDS: ENOXAPARIN SODIUM INJ 40 MG/0.4 ML DISP.SYRIN SUBCUT SCH (08:56)
[2017-06-12 16:39] LABS: ALBUMIN UR 75.2 % (.); ALPHA-2-GLOBULIN URINE 5.3 % (.); GAMMA GLOBULIN URINE 5.4 % (.); M-SPIKE % UR Not Observed % (Not Observed); PROTEIN TOTAL URINE 27.4 mg/dL (Not Estab.)
[2017-06-12] MEDS: MONTELUKAST SODIUM 10 MG TABLET PO SCH (17:02)
[2017-06-12] MEDS: INSULIN LISPRO 100 UNIT/ML 3 ML VIAL SUBCUT PRN (17:03)
[2017-06-12] MEDS: PRAMIPEXOLE DI-HCL 0.25 MG TABLET PO SCH (21:06)
[2017-06-12] MEDS: LEVOFLOXACIN 750 MG TABLET PO SCH (21:06)
[2017-06-12] MEDS: ATORVASTATIN CALCIUM 10 MG TABLET PO SCH (21:07)
--- NOTE | 2017-06-12 21:59 | PDOC PROGRESS REPORT ---
Subjective Progress Note for:: 06/12/17 Subjective:: Yesterday patient was started on BuSpar for anxiety, the medication seems to be very effective patient is less agitated and less overly anxious. He was advised that he needed physical therapy in a alf rehabilitation center but he declined that option. The plan will be to discharge home tomorrow Reason For Visit: ACUTE ON CHRONIC RESPIRATORY FAILURE, COPD, Physical Exam Vital Signs: Temp Pulse Resp BP Pulse Ox 97.3 F 31 L 20 160/75 H 93 06/12/17 19:57 06/12/17 19:57 06/12/17 19:57 06/12/17 19:57 06/12/17 19:57 Intake & Output 06/11/17 06/12/17 06/13/17 06:59 06:59 06:59 Intake Total 1556 910 940 Output Total 2400 770 800 Balance -844 140 140 Weight 124.5 kg 125.4 kg General appearance: PRESENT: no acute distress, well-developed, well-nourished Head exam: PRESENT: atraumatic, normocephalic Eye exam: PRESENT: conjunctiva pink, EOMI, PERRLA Ear exam: PRESENT: normal external ear exam Mouth exam: PRESENT: moist, tongue midline Neck exam: PRESENT: full ROM Respiratory exam: PRESENT: clear to auscultation lianne Cardiovascular exam: PRESENT: RRR, +S1, +S2 Murmur grade: 3 Pulses: PRESENT: normal dorsalis pedis pul, +2 pedal pulses bilateral Vascular exam: PRESENT: normal capillary refill GI/Abdominal exam: PRESENT: normal bowel sounds, soft Rectal exam: PRESENT: deferred Neurological exam: PRESENT: alert, awake, oriented to person, oriented to place , oriented to time, oriented to situation, CN II-XII grossly intact. ABSENT: motor sensory deficit Psychiatric exam: PRESENT: appropriate affect, normal mood. ABSENT: homicidal ideation, suicidal ideation Skin exam: PRESENT: dry, intact, warm. ABSENT: cyanosis, rash Results Laboratory Results: 06/11/17 04:04 06/11/17 04:04 06/04/17 06/04/17 06/05/17 18:40 18:40 00:27 Creatine Kinase 62 78 CK-MB (CK-2) 1.19 Troponin I 0.023 06/05/17 06/05/17 06/05/17 00:27 06:28 06:28 Creatine Kinase 86 CK-MB (CK-2) 1.54 1.88 Troponin I 0.032 0.033 Impressions: Chest CT 06/04/17 00:00 IMPRESSION: COPD. Stable pulmonary nodules. Chest X-Ray 06/04/17 12:58 IMPRESSION: Stable cardiomegaly. No new or active infiltrates. Assessment & Plan - Diagnosis (1) Acute and chronic respiratory failure Qualifiers: Respiratory failure complication: hypercapnia Qualified Code(s): J96.22 - Acute and chronic respiratory failure with hypercapnia Is this a current diagnosis for this admission?: Yes (2) Acute exacerbation of chronic obstructive pulmonary disease (COPD) Is this a current diagnosis for this admission?: Yes (3) Type 2 diabetes mellitus Qualifiers: Diabetes mellitus complication status: with neurologic complications Diabetes mellitus complication detail: with polyneuropathy Diabetes mellitus long-term insulin use: with long-term use Qualified Code(s): E11.42 - Type 2 diabetes mellitus with diabetic polyneuropathy Is this a current diagnosis for this admission?: Yes (4) Acute kidney injury Is this a current diagnosis for this admission?: Yes (5) Proteinuria Qualifiers: Proteinuria type: unspecified Qualified Code(s): R80.9 - Proteinuria, unspecified Is this a current diagnosis for this admission?: Yes - Plan Summary Plan Summary: Patient will be discharged home tomorrow on BuSpar, will reduce the dose of prednisone to 20 mg p.o. daily, he has proteinuria the urine protein electrophoresis result is pending
[2017-06-13] MEDS: HYDROCODONE/ACETAMINOPHEN 10-325 MG TABLET PO SCH ×2 (06:12→15:18)
[2017-06-13] MEDS ORDERED: PREDNISONE 20 MG TABLET PO SCH (10:00)
[2017-06-13] MEDS: POTASSIUM CHLORIDE 10 MEQ TABLET.SA PO SCH (11:32)
[2017-06-13] MEDS: METOPROLOL SUCCINATE 25 MG TAB.SR.24H PO SCH (11:33)
[2017-06-13] MEDS: METFORMIN HCL 500 MG TABLET PO SCH ×2 (11:33→15:18)
[2017-06-13] MEDS: RAMIPRIL 10 MG CAPSULE PO SCH (11:33)
[2017-06-13] MEDS: ALLOPURINOL 100 MG TABLET PO SCH (11:33)
[2017-06-13] MEDS: PIOGLITAZONE HCL 15 MG TABLET PO SCH (11:34)
[2017-06-13] MEDS: ASPIRIN 81 MG TABLET, CHEWABLE PO SCH (11:34)
[2017-06-13] MEDS: DULOXETINE HCL 30 MG CAPSULE.DR PO SCH (11:34)
[2017-06-13] MEDS: BUSPIRONE HCL 10 MG TABLET PO SCH (11:34)
[2017-06-13] MEDS: ENOXAPARIN SODIUM INJ 40 MG/0.4 ML DISP.SYRIN SUBCUT SCH (11:35)
[2017-06-13 13:38] LABS: A/G RATIO. 1.2 (0.7-1.7); ALBUMIN 3 3.1 g/dL (2.9-4.4); ALPHA-1-GLOBULIN 0.2 g/dL (0.0-0.4); BETA GLOBULIN 0.9 g/dL (0.7-1.3); GAMMA GLOBULINS 0.6 g/dL (0.4-1.8); IMMUNOGLOBULIN A 156 mg/dL (61-437); IMMUNOGLOBULIN G 576 mg/dL (700-1600); MONOCLONAL-SPIKE Not Observed g/dL (Not Observed); PROTEIN TOTAL SERUM 5.7 g/dL (6.0-8.5)
--- NOTE | 2017-06-13 15:54 | PDOC DISCHARGE SUMMARY ---
General - Admit/Disc Date/PCP Admission Date/Primary Care Provider: 06/04/17 14:38 Discharge Date: 06/13/17 - Discharge Diagnosis (1) Acute and chronic respiratory failure Is this a current diagnosis for this admission?: Yes (2) Acute exacerbation of chronic obstructive pulmonary disease (COPD) Is this a current diagnosis for this admission?: Yes (3) Type 2 diabetes mellitus Is this a current diagnosis for this admission?: Yes (4) Acute kidney injury Is this a current diagnosis for this admission?: Yes (5) Non-nephrotic range proteinuria Is this a current diagnosis for this admission?: Yes - Additional Information Prescriptions: Buspirone HCl [Buspar 10 mg Tablet] 15 mg PO Q12 #60 tablet Furosemide [Lasix 40 mg Tablet] 40 mg PO QAM #30 tablet Prednisone 20 mg PO DAILY #20 tablet Home Medications: Allopurinol [Zyloprim 100 mg Tablet] 100 mg PO DAILY 06/04/17 Aspirin [Aspirin 81 mg Chewable Tablet] 81 mg PO DAILY 06/04/17 Duloxetine HCl [Cymbalta] 60 mg PO DAILY 06/04/17 Hydrocodone/Acetaminophen [Beaman 10-325 mg Tablet] 1 tab PO Q8 06/04/17 Metformin HCl [Glucophage 500 mg Tablet] 500 mg PO BIDBS 06/04/17 Metoprolol Succinate [Toprol Xl 25 mg Tab.sr] 25 mg PO DAILY 06/04/17 Montelukast Sodium [Singulair 10 mg Tablet] 10 mg PO QPM 06/04/17 Pioglitazone HCl [Actos 15 mg Tablet] 15 mg PO DAILY 06/04/17 Potassium Chloride [K-Tab ER] 10 mg PO DAILY 06/04/17 Pramipexole Di-HCl [Mirapex] 0.125 mg PO QHS 06/04/17 Pravastatin Sodium [Pravachol] 40 mg PO DAILY 06/04/17 Ramipril [Altace 10 mg Capsule] 10 mg PO DAILY 06/04/17 Buspirone HCl [Buspar 10 mg Tablet] 15 mg PO Q12 #60 tablet 06/13/17 Furosemide [Lasix 40 mg Tablet] 40 mg PO QAM #30 tablet 06/13/17 Prednisone 20 mg PO DAILY #20 tablet 06/13/17 History of Present Illness History of Present Illness: Earnest PIMENTEL is a 76 year old male, He has a history of chronic obstructive pulmonary disease, he came to the emergency room for evaluation of shortness of breath, in the emergency room he was evaluated, chest x-ray was done It showed no acute pathology subsequently CT chest was done, it showed no pneumonia, no CHF no mass except for COPD. Patient used to take megadoses of furosemide, he was on 160 mg of furosemide this dose was affecting kidney function, the dose was decreased to 40 mg p.o. daily, he stated that the decrease dose of Lasix is the cause of his symptoms of shortness of breath, though he continues to smoke cigarettes despite very severe COPD.ABG was done on FiO2 40% showed pH 7.37, PCO2 56.4, PO2 130.5, bicarbonate 31.8 this ABG suggests chronic respiratory acidosis if this was a normal lung but he has baseline COPD, this is most consistent with acute on chronic respiratory failure in this patient with a baseline COPD Hospital Course Hospital Course: Patient was admitted for the management of acute COPD exacerbation, he has, the urine protein creatinine ratio proteinuria was 2.3. He had episode of anxiety requiring BuSpar which is very effective. He required noninvasive positive pressure ventilation with BiPAP, he was treated with IV antibiotic, Solu-Medrol , bronchodilators with good results. Patient was offered option for [facility] rehabilitation because of the generalized body weakness but he declined the option. Physical Exam Vital Signs: Temp Pulse Resp BP Pulse Ox 97.8 F 81 22 H 160/65 H 100 06/13/17 12:15 06/13/17 12:15 06/13/17 12:15 06/13/17 12:15 06/13/17 12:15 Intake & Output 06/12/17 06/13/17 06/14/17 06:59 06:59 06:59 Intake Total 910 1040 600 Output Total 770 1425 275 Balance 140 -385 325 Weight 125.4 kg 126 kg 126 kg General appearance: PRESENT: no acute distress, well-developed, well-nourished Head exam: PRESENT: atraumatic, normocephalic Eye exam: PRESENT: conjunctiva pink, EOMI, PERRLA Ear exam: PRESENT: normal external ear exam Mouth exam: PRESENT: moist, tongue midline Neck exam: PRESENT: full ROM Respiratory exam: PRESENT: clear to auscultation lianne Cardiovascular exam: PRESENT: RRR, +S1, +S2 Murmur grade: 3 Pulses: PRESENT: normal dorsalis pedis pul, +2 pedal pulses bilateral Vascular exam: PRESENT: normal capillary refill GI/Abdominal exam: PRESENT: normal bowel sounds, soft Rectal exam: PRESENT: deferred Neurological exam: PRESENT: alert, awake, oriented to person, oriented to place , oriented to time, oriented to situation, CN II-XII grossly intact Psychiatric exam: PRESENT: appropriate affect, normal mood Skin exam: PRESENT: dry, intact, warm Results Laboratory Results: 06/11/17 04:04 06/11/17 04:04 06/04/17 06/04/17 06/05/17 18:40 18:40 00:27 Creatine Kinase 62 78 CK-MB (CK-2) 1.19 Troponin I 0.023 06/05/17 06/05/17 06/05/17 00:27 06:28 06:28 Creatine Kinase 86 CK-MB (CK-2) 1.54 1.88 Troponin I 0.032 0.033 Impressions: Chest CT 06/04/17 00:00 IMPRESSION: COPD. Stable pulmonary nodules. Chest X-Ray 06/04/17 12:58 IMPRESSION: Stable cardiomegaly. No new or active infiltrates.
[2017-06-13 16:58] VITALS: BP 152/57
[2017-06-14 07:05] LABS: IMMUNOGLOBULIN M 22 mg/dL (15-143)
== END 2017-06-13 17:53 | disposition home health service (06) | DRG 190 ==
LOC: ER 12:52 → EH 14:38 → 3N 20:15
PROVIDERS: ADMIT Internal Medicine; ATTEND Internal Medicine
PROC: 3E0F73Z Introduction of Anti-inflammatory into Respiratory Tract, Via Natural or Artificial Opening (ICD-10-PCS; principal; 2017-06-04)
PROC: 5A09457 Assistance with Respiratory Ventilation, 24-96 Consecutive Hours, Continuous Positive Airway Pressure (ICD-10-PCS; 2017-06-04)
DX: J44.1 Chronic obstructive pulmonary disease with (acute) exacerbation (principal); J96.21 Acute and chronic respiratory failure with hypoxia; J96.22 Acute and chronic respiratory failure with hypercapnia; I50.41 Acute combined systolic (congestive) and diastolic (congestive) heart failure; N17.9 Acute kidney failure, unspecified; F17.210 Nicotine dependence, cigarettes, uncomplicated; F41.9 Anxiety disorder, unspecified; I25.10 Atherosclerotic heart disease of native coronary artery without angina pectoris; K21.9 Gastro-esophageal reflux disease without esophagitis; F32.9 Major depressive disorder, single episode, unspecified; E11.42 Type 2 diabetes mellitus with diabetic polyneuropathy; I48.91 Unspecified atrial fibrillation; E78.00 Pure hypercholesterolemia, unspecified; I45.10 Unspecified right bundle-branch block; I25.2 Old myocardial infarction; Z95.5 Presence of coronary angioplasty implant and graft; Z79.82 Long term (current) use of aspirin; Z79.899 Other long term (current) drug therapy; Z91.09 Other allergy status, other than to drugs and biological substances
CPT/HCPCS: 36415; 36600; 71045; 71250; 80048; 80053; 80061; 80076; 80307; 81001; 82140; 82150; 82550; 82553; 82570; 82803; 82962; 83036; 83690; 83735; 83880; 84100; 84156; 84166; 84439; 84443; 84484; 85025; 85610; 85730; 86320; 87040; 87086; 93005; 93010; 93306; 94640; 94660; 96374; 96375; 99285; J1650; J1815; J1940; J1956; J2930; J3490; J7512; J7620

== ENCOUNTER 2017-08-04 13:16 | Emergency (ER) | payer MEDICARE, OTHER ==
[2017-08-04 13:40] LABS: ABSOLUTE EOSINOPHILS # (AUTO) 0.2 10^3/uL (0.0-0.6); ABSOLUTE LYMPHOCYTES (AUTO) 1.3 10^3/uL (0.5-4.7); ABSOLUTE MONOCYTES (AUTO) 0.7 10^3/uL (0.1-1.4); ABSOLUTE NEUT (AUTO) 3.7 10^3/uL (1.7-8.2); BASOPHILS % (AUTO) 0.6 % (0-2); EOSINOPHILS % (AUTO) 3.8 % (0-6); HEMATOCRIT 34.7 % (37.9-51.0); HEMOGLOBIN 11.3 g/dL (13.5-17.0); LYMPHOCYTES % (AUTO) 21.3 % (13-45); MEAN CORPUSCULAR HGB CONC 32.5 g/dL (32.0-36.0); MEAN CORPUSCULAR VOLUME 86 fl (80-97); MONOCYTES % (AUTO) 12.1 % (3-13); PLATELET COUNT 190 10^3/uL (150-450); RED BLOOD COUNT 4.02 10^6/uL (4.35-5.55); RED CELL DISTRIBUTION WIDTH 16.8 % (11.5-14.0); SEGMENTED NEUTROPHILS % (AUTO) 62.2 % (42-78); TOTAL CELLS COUNTED % (AUTO) 100 %; WHITE BLOOD COUNT 5.9 10^3/uL (4.0-10.5)
[2017-08-04 14:18] LABS: ALANINE AMINOTRANSFERASE 29 U/L (21-72); ALBUMIN 3.5 g/dL (3.5-5.0); ALKALINE PHOSPHATASE 54 U/L (38-126); ANION GAP 8 (5-19); ASPARTATE AMINO TRANSFERASE 14 U/L (17-59); BILIRUBIN,DIRECT 0.1 mg/dL (0.0-0.4); BILIRUBIN,TOTAL 0.2 mg/dL (0.2-1.3); BLOOD UREA NITROGEN 20 mg/dL (7-20); CALCIUM 8.9 mg/dL (8.4-10.2); CARBON DIOXIDE 30 mmol/L (22-30); CHLORIDE 99 mmol/L (98-107); CREATINE KINASE 52 U/L (55-170); GLUCOSE 228 mg/dL (75-110); POTASSIUM 4.7 mmol/L (3.6-5.0); SODIUM 137.2 mmol/L (137-145); TOTAL PROTEIN 5.5 g/dL (6.3-8.2)
[2017-08-04 14:26] LABS: CREATINE KINASE MB 1.31 ng/mL (<4.55); TROPONIN I 0.014 ng/mL
[2017-08-04] MEDS ORDERED: FUROSEMIDE INJ/PF 40 MG/4 ML SDV IV ONE (14:29)
[2017-08-04] MEDS ORDERED: NITROGLYCERIN 2% OINTMENT 1 GM PACKET TP ONE (14:29)
--- NOTE | 2017-08-04 14:39 | ER Document Report ---
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 Has had aspirin but no nitro. TRAVEL OUTSIDE OF THE [place] IN LAST 30 DAYS: No - Related Data Allergies/Adverse Reactions: quinine [Quinine] Allergy (Verified 06/04/17 13:30) Past Medical History - Social History Smoking Status: Current Some Day Smoker Chew tobacco use (# tins/day): No Smoking Education Provided: Yes - The patient ED visit today was directly related to their abuse of tobacco. Frequency of alcohol use: None Drug Abuse: None Family History: Reviewed & Not Pertinent Patient has suicidal ideation: No Patient has homicidal ideation: No - Past Medical History Cardiac Medical History: Reports: Hx Atrial Fibrillation, Hx Coronary Artery Disease, Hx Heart Attack, Hx Hypercholesterolemia, Hx Hypertension Denies: Hx Congestive Heart Failure, Hx DVT, Hx Pulmonary Embolism Pulmonary Medical History: Reports: Hx Bronchitis, Hx COPD Neurological Medical History: Reports: Hx Cerebrovascular Accident Endocrine Medical History: Reports: Hx Diabetes Mellitus Type 2 Renal/ Medical History: Denies: Hx Peritoneal Dialysis GI Medical History: Reports: Hx Gastroesophageal Reflux Disease Psychiatric Medical History: Reports: Hx Anxiety, Hx Depression Past Surgical History: Reports: Hx Cardiac Catheterization - stent, Hx Coronary Stent, Hx Kidney (Renal Surgery), Hx Orthopedic Surgery - neck - Immunizations Immunizations up to date: Yes Hx Diphtheria, Pertussis, Tetanus Vaccination: Yes Hx Pneumococcal Vaccination: 02/26/12 Review of Systems - Review of Systems Notes: REVIEW OF SYSTEMS GEN: Denies fever, chills, weight loss ENT: Denies sore throat, nasal discharge, ear pain EYES: Denies blurry vision, eye pain, discharge CV: Chest pain RESP: Cough shortness of breath GI: Denies abdominal pain, nausea, vomiting, diarrhea MSK: Denies joint pain/swelling, edema, SKIN: Denies rash, skin lesions LYMPH: Denies swollen glands/lymph nodes NEURO: Denies headache, focal weakness or numbness, dizziness PSYCH: Denies depression, suicidal or homicidal ideation PHYSICAL EXAMINATION General: Mild acute distress, well-nourished Head: Atraumatic, normocephalic ENT: Mouth normal, oropharynx moist, no exudates or tonsillar enlargement Eyes: Conjunctiva normal, pupils equal, lids normal Neck: No JVD, supple, no guarding CVS: Normal rate, regular rhythm, no murmurs Resp: Tachypneic with bilateral diminished breath sounds and bibasilar rales GI: Nondistended, soft, no tenderness to palpation, no rebound or guarding Ext: No deformities, symmetric 3+ pitting edema of the legs bilaterally, normal range of motion in upper and lower ext Back: No CVA or midline TTP Skin: No rash, warm Lymphatic: No lymphadeopathy noted Neuro: Awake, alert. Face symmetric. GCS 15. Physical Exam - Vital signs Vitals: Resp BP 39 H 160/69 H 08/04/17 13:31 08/04/17 13:31 Course - Re-evaluation Re-evalutation: 08/04/17 14:38 Patient with CHF and CAD presents with chest pain and acute respiratory distress likely decompensated CHF. 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 Already got aspirin. We will give nitroglycerin start on BiPAP, empiric Lasix. Chest x-ray labs troponin and BNP are pending. 08/04/17 15:10 Patient is doing well on BiPAP. His troponin is not elevated. The BNP was not actually sent however clinically he is in flash pulmonary edema. His chest x- ray looks mildly wet to me but is read as normal. I will continue therapy for unstable angina/congestive heart failure. At this time he is unstable for CT scan, however if he improves I will consider ruling out pulmonary embolus. Either way he is getting Lovenox for unstable angina. 08/04/17 15:11 Spoke with Audrey Gross for transfer. 08/04/17 15:30 Patient is feeling better after nitroglycerin although he still has a little bit of chest pressure as much relief. He has received Lovenox as well. He is tolerating BiPAP quite well. 08/04/17 16:41 Reassessed off BiPAP and feeling better. Wants to be office we can eat. Will wean down. Spoke with Dr. Samosn at [facility] who accepted. - Vital Signs Vital signs: Temp Pulse Resp BP Pulse Ox 24 H 157/95 H 99 08/04/17 15:01 08/04/17 15:01 08/04/17 15:01 - Laboratory Result Diagrams: 08/04/17 13:21 08/04/17 13:21 Laboratory results interpreted by me: 08/04/17 08/04/17 13:21 13:21 RBC 4.02 L Hgb 11.3 L Hct 34.7 L RDW 16.8 H Creatinine 1.26 H Est GFR (Non-Af Amer) 55 L Glucose 228 H AST 14 L Creatine Kinase 52 L Total Protein 5.5 L - Diagnostic Test Radiology reviewed: Image reviewed, Reports reviewed - EKG Interpretation by Me EKG shows normal: Sinus rhythm Rate: Normal [place]/QRS: RBBB When compared to previous EKG there are: No significant change Critical Care Note - Critical Care Note Total time excluding time spent on procedures (mins): 32 Comments: The above patient is critically ill. Not including procedures, but including direct re-evaluations, speaking with patient and/or consultants, interpreting results, and documenting, I spent the total amount of minute listed listed above on critical care time Discharge - Discharge Referrals: CARRILLO GARCIA MD [Primary Care Provider] - Follow up as needed
--- NOTE | 2017-08-04 14:58 | RADIOLOGY REPORT (SQ) ---
EXAM DESCRIPTION: CHEST SINGLE VIEW COMPLETED DATE/TIME: 08/04/2017 2:45 pm REASON FOR STUDY: chest pain COMPARISON: CT and chest radiograph from 06/04/2017 EXAM PARAMETERS: NUMBER OF VIEWS: One view. TECHNIQUE: Single frontal radiographic view of the chest acquired. RADIATION DOSE: NA LIMITATIONS: None. FINDINGS: LUNGS AND PLEURA: Stable chronic lung change without new opacities, masses or pneumothorax . No pleural effusion. MEDIASTINUM AND HILAR STRUCTURES: No masses. Contour normal. HEART AND VASCULAR STRUCTURES: Heart stable in size. Normal vasculature. BONES: No acute findings. HARDWARE: None in the chest. OTHER: No other significant finding. IMPRESSION: NO ACUTE RADIOGRAPHIC FINDING IN THE CHEST. NO SIGNIFICANT CHANGE FROM PRIOR STUDY. TECHNICAL DOCUMENTATION: JOB ID: [id number] [employer]- All Rights Reserved Reading location - IP/workstation name: [email or web address]
[2017-08-04] MEDS: ENOXAPARIN SODIUM INJ 120 MG/0.8 ML DISP.SYRIN SUBCUT SCH (15:38)
[2017-08-04 16:36] LABS: APPEARANCE,URINE CLEAR; BILIRUBIN,URINE NEGATIVE (NEGATIVE); COLOR,URINE YELLOW; GLUCOSE, URINE NEGATIVE (NEGATIVE); KETONES,URINE NEGATIVE (NEGATIVE); LEUKOCYTE ESTERASE,URINE NEGATIVE (NEGATIVE); NITRITE,URINE NEGATIVE (NEGATIVE); PROTEIN,URINE 30 mg/dL (NEGATIVE); URINE SPECIFIC GRAVITY 1.012; UROBILINOGEN,URINE NEGATIVE mg/dL (<2.0)
[2017-08-04] MEDS ORDERED: ACETAMINOPHEN 325 MG TABLET PO ONE (18:57)
[2017-08-04] MEDS ORDERED: IPRATROPIUM/ALBUTEROL 0.5-2.5 MG/3 ML AMPUL NEB ONE (19:06)
[2017-08-05] MEDS ORDERED: FUROSEMIDE INJ/PF 40 MG/4 ML SDV IV ONE (08:06)
[2017-08-05] MEDS ORDERED: ACETAMINOPHEN 325 MG TABLET PO SCH (08:15)
[2017-08-05] MEDS: ENOXAPARIN SODIUM INJ 120 MG/0.8 ML DISP.SYRIN SUBCUT SCH (10:22)
--- NOTE | 2017-08-05 10:50 | EKG REPORT ---
SEVERITY:- ABNORMAL ECG - SINUS RHYTM WITH APCs AND VPCs NONSPECIFIC INTRAVENTRICULAR CONDUCTION DELAY CONSIDER ANTERIOR INFARCT BORDERLINE ST DEPRESSION, ANTEROLATERAL LEADS : Confirmed by: Ana Tinajero 05-Aug-2017 10:49:59
--- NOTE | 2017-08-05 10:51 | EKG REPORT ---
SEVERITY:- ABNORMAL ECG - SINUS RHYTHM RIGHT BUNDLE BRANCH BLOCK : Confirmed by: Ana Tinajero 05-Aug-2017 10:50:32
--- NOTE | 2017-08-05 10:51 | EKG REPORT ---
SEVERITY:- ABNORMAL ECG - SINUS OR ECTOPIC ATRIAL RHYTHM ATRIAL PREMATURE COMPLEX RIGHT BUNDLE BRANCH BLOCK : Confirmed by: Ana Tinajero 05-Aug-2017 10:50:41
[2017-08-05] MEDS ORDERED: GLUCAGON,HUMAN RECOMB 1 MG INJ IM PRN (18:09)
[2017-08-05] MEDS ORDERED: INSULIN LISPRO 100 UNIT/ML 3 ML VIAL SUBCUT PRN (18:09)
[2017-08-05] MEDS ORDERED: DEXTROSE 50%-WATER 25 GM/50 ML DISP.SYRIN IV PRN ×2 (18:09)
[2017-08-05] MEDS ORDERED: DEXTROSE 40% GEL 15 GM TUBE PO PRN ×2 (18:09)
[2017-08-05 20:27] VITALS: BP 162/84
[2017-08-05] MEDS ORDERED: PRAMIPEXOLE DI-HCL 0.25 MG TABLET PO SCH (22:00)
[2017-08-05] MEDS ORDERED: RAMIPRIL 10 MG CAPSULE PO SCH (22:00)
[2017-08-05] MEDS ORDERED: ATORVASTATIN CALCIUM 10 MG TABLET PO SCH (22:00)
[2017-08-05] MEDS ORDERED: HYDROCODONE/ACETAMINOPHEN 10-325 MG TABLET PO SCH (22:00)
[2017-08-05] MEDS ORDERED: (PENDING PHARMACY ID) (Pravastatin Sodium [Pravachol] 40 MG) PO SCH (22:00)
[2017-08-05] MEDS ORDERED: MONTELUKAST SODIUM 10 MG TABLET PO SCH (22:00)
[2017-08-06] MEDS ORDERED: METFORMIN HCL 500 MG TABLET PO SCH (08:00)
[2017-08-06] MEDS ORDERED: FUROSEMIDE 40 MG TABLET PO SCH (08:00)
[2017-08-06] MEDS ORDERED: POTASSIUM CHLORIDE 10 MEQ TABLET.SA PO SCH (10:00)
[2017-08-06] MEDS ORDERED: METOPROLOL SUCCINATE 25 MG TAB.SR.24H PO SCH (10:00)
[2017-08-06] MEDS ORDERED: PIOGLITAZONE HCL 15 MG TABLET PO SCH (10:00)
[2017-08-06] MEDS ORDERED: ASPIRIN 81 MG TABLET, CHEWABLE PO SCH (10:00)
[2017-08-06] MEDS ORDERED: DULOXETINE HCL 30 MG CAPSULE.DR PO SCH (10:00)
[2017-08-06] MEDS ORDERED: ALLOPURINOL 100 MG TABLET PO SCH (10:00)
== END 2017-08-05 20:55 | disposition short-term general hospital (02) ==
LOC: ER 13:16
DX: I11.0 Hypertensive heart disease with heart failure (principal); I50.33 Acute on chronic diastolic (congestive) heart failure; Z95.5 Presence of coronary angioplasty implant and graft; J96.10 Chronic respiratory failure, unspecified whether with hypoxia or hypercapnia; Z99.81 Dependence on supplemental oxygen; I25.110 Atherosclerotic heart disease of native coronary artery with unstable angina pectoris; I45.10 Unspecified right bundle-branch block; I25.2 Old myocardial infarction; J44.9 Chronic obstructive pulmonary disease, unspecified; F17.200 Nicotine dependence, unspecified, uncomplicated; E11.9 Type 2 diabetes mellitus without complications; R05 Cough
CPT/HCPCS: 93005; 96376; 94640; 99291; 96372; 96374; 36415; 82553; 82962; 82550; 85025; 80053; 81001; 84484; 71045; 93010; 94660; A9270 ×5; J1940 ×2; J1650 ×2; J1815; J7620

== ENCOUNTER 2017-09-29 18:24 | Inpatient (IN) | payer MEDICARE, OTHER ==
[2017-09-29] MEDS ORDERED: IPRATROPIUM/ALBUTEROL 0.5-2.5 MG/3 ML AMPUL NEB ONE ×2 (18:32→23:46)
[2017-09-29] MEDS ORDERED: FUROSEMIDE INJ/PF 40 MG/4 ML SDV IV ONE (19:15)
--- NOTE | 2017-09-29 19:19 | ER Document Report ---
ED General - General Chief Complaint: Respiratory Distress Stated Complaint: WEAKNESS Time Seen by Provider: 09/29/17 18:57 Mode of Arrival: Medic Information source: Patient Notes: 77-year-old male with a history of COPD, CHF, atrial fibrillation, hypertension presents via EMS from home with complaint of shortness of breath. Patient states shortness of breath started just prior to arrival while he was on the "commode". Patient had associated diaphoresis but denies nausea, lightheadedness and chest pain. Does admit to a more productive cough over the last few days. Prior to arrival patient administered breathing treatments without improvement. He did receive a breathing treatment by EMS and now reports some improvement of shortness of breath. Patient does continue to smoke. He states he has been compliant with his medication regimen. Denies any recent hospitalizations, fever. Patient's PCP is Dr. Kumar. TRAVEL OUTSIDE OF THE [place] IN LAST 30 DAYS: No - HPI Onset: Just prior to arrival Quality of pain: No pain Associated symptoms: None Exacerbated by: Denies Relieved by: Denies Similar symptoms previously: Yes Recently seen / treated by doctor: Yes - Related Data Allergies/Adverse Reactions: quinine [Quinine] Allergy (Verified 06/04/17 13:30) Past Medical History - General Information source: Patient, Relative, [facility] Records - Social History Smoking Status: Never Smoker Frequency of alcohol use: None Drug Abuse: None Lives with: Family Family History: Reviewed & Not Pertinent Patient has suicidal ideation: No Patient has homicidal ideation: No - Past Medical History Cardiac Medical History: Reports: Hx Atrial Fibrillation, Hx Coronary Artery Disease, Hx Heart Attack, Hx Hypercholesterolemia, Hx Hypertension Denies: Hx Congestive Heart Failure, Hx DVT, Hx Pulmonary Embolism Pulmonary Medical History: Reports: Hx Bronchitis, Hx COPD Neurological Medical History: Reports: Hx Cerebrovascular Accident Endocrine Medical History: Reports: Hx Diabetes Mellitus Type 2 Renal/ Medical History: Denies: Hx Peritoneal Dialysis GI Medical History: Reports: Hx Gastroesophageal Reflux Disease Psychiatric Medical History: Reports: Hx Anxiety, Hx Depression Past Surgical History: Reports: Hx Cardiac Catheterization - stent, Hx Coronary Stent, Hx Kidney (Renal Surgery), Hx Orthopedic Surgery - neck - Immunizations Immunizations up to date: Yes Hx Diphtheria, Pertussis, Tetanus Vaccination: Yes Hx Pneumococcal Vaccination: 02/26/12 Review of Systems - Review of Systems Notes: Patient denies fever, chills, nausea, vomiting, headache, ear pain, sore throat , chest pain, abdominal pain, back pain, dysuria, hematuria, rash, SI/HI. Physical Exam - Vital signs Vitals: Resp Pulse Ox 23 H 97 09/29/17 18:29 09/29/17 18:29 - Notes Notes: PHYSICAL EXAMINATION: GENERAL: Well-appearing, well-nourished and in no acute distress. HEAD: Atraumatic, normocephalic. EYES: Pupils equal round and reactive to light, extraocular movements intact, sclera anicteric, conjunctiva are normal. ENT: Nares patent, oropharynx clear without exudates. Moist mucous membranes. NECK: Normal range of motion, supple without lymphadenopathy LUNGS: Diminished breath sounds in all lung lyons. No wheezes rales or rhonchi. Mild retractions. Patient is able to speak in full sentences. On nasal cannula 3 L. HEART: Regular rate irregular rhythm without murmurs ABDOMEN: Soft, nontender, nondistended abdomen. No guarding, no rebound. No masses appreciated. Musculoskeletal: Normal range of motion, 2+ pitting edema. No cyanosis. NEUROLOGICAL: Cranial nerves grossly intact. Normal speech, normal gait. Normal sensory, motor exams PSYCH: Normal mood, normal affect. SKIN: Warm, Dry, normal turgor, no rashes or lesions noted. Course - Re-evaluation Re-evalutation: Laboratory 09/29/17 09/29/17 09/29/17 18:38 18:38 18:38 WBC 11.3 H RBC 4.01 L Hgb 9.8 L Hct 31.1 L MCV 78 L MCH 24.4 L MCHC 31.4 L RDW 18.2 H Plt Count 389 Seg Neutrophils % 76.5 Lymphocytes % 11.8 L Monocytes % 8.8 Eosinophils % 2.2 Basophils % 0.7 Absolute Neutrophils 8.6 H Absolute Lymphocytes 1.3 Absolute Monocytes 1.0 Absolute Eosinophils 0.2 Absolute Basophils 0.1 Carbonic Acid HCO3/H2CO3 Ratio ABG pH ABG pCO2 ABG pO2 ABG HCO3 ABG Total CO2 ABG O2 Saturation ABG Base Excess VBG pH VBG pCO2 VBG HCO3 VBG Base Excess FiO2 Sodium 146.1 H Potassium 4.1 Chloride 96 L Carbon Dioxide 37 H Anion Gap 13 BUN 23 H Creatinine 1.43 H Est GFR ( Amer) 58 L Est GFR (Non-Af Amer) 48 L Glucose 137 H Calcium 9.2 Total Bilirubin 0.3 Direct Bilirubin 0.3 Neonat Total Bilirubin Not Reportable Neonat Direct Bilirubin Not Reportable Neonat Indirect Bili Not Reportable AST 20 ALT 22 Alkaline Phosphatase 78 Creatine Kinase 84 CK-MB (CK-2) 1.06 Troponin I 0.028 NT-Pro-B Natriuret Pep 2200 H Total Protein 6.5 Albumin 3.6 Urine Color Urine Appearance Urine pH Ur Specific [place] Urine Protein Urine Glucose (UA) Urine Ketones Urine Blood Urine Nitrite Urine Bilirubin Urine Urobilinogen Ur Leukocyte Esterase Urine WBC (Auto) Urine RBC (Auto) U Hyaline Cast (Auto) Urine Bacteria (Auto) Urine Mucus (Auto) Urine Ascorbic Acid 09/29/17 09/29/17 09/29/17 18:38 20:15 20:15 WBC RBC Hgb Hct MCV MCH MCHC RDW Plt Count Seg Neutrophils % Lymphocytes % Monocytes % Eosinophils % Basophils % Absolute Neutrophils Absolute Lymphocytes Absolute Monocytes Absolute Eosinophils Absolute Basophils Carbonic Acid 1.88 H HCO3/H2CO3 Ratio 20:1 ABG pH 7.40 ABG pCO2 62.5 H ABG pO2 43.0 L ABG HCO3 37.7 H ABG Total CO2 39.6 H ABG O2 Saturation 77.1 L ABG Base Excess 11.0 VBG pH 7.35 VBG pCO2 70.1 H* VBG HCO3 38.2 H VBG Base Excess 10.5 FiO2 4L Sodium Potassium Chloride Carbon Dioxide Anion Gap BUN Creatinine Est GFR ( Amer) Est GFR (Non-Af Amer) Glucose Calcium Total Bilirubin Direct Bilirubin Neonat Total Bilirubin Neonat Direct Bilirubin Neonat Indirect Bili AST ALT Alkaline Phosphatase Creatine Kinase CK-MB (CK-2) Troponin I NT-Pro-B Natriuret Pep Total Protein Albumin Urine Color YELLOW Urine Appearance CLEAR Urine pH 5.0 Ur Specific [place] 1.009 Urine Protein 30 H Urine Glucose (UA) NEGATIVE Urine Ketones NEGATIVE Urine Blood NEGATIVE Urine Nitrite NEGATIVE Urine Bilirubin NEGATIVE Urine Urobilinogen NEGATIVE Ur Leukocyte Esterase NEGATIVE Urine WBC (Auto) 1 Urine RBC (Auto) 0 U Hyaline Cast (Auto) 2 Urine Bacteria (Auto) TRACE Urine Mucus (Auto) RARE Urine Ascorbic Acid NEGATIVE Chest X-Ray 09/29/17 19:14 IMPRESSION: CARDIAC ENLARGEMENT. VASCULAR CONGESTION. 09/29/17 22:22 77-year-old male with a history of COPD, CHF, atrial fibrillation, hypertension presents via EMS from home with complaint of shortness of breath. Patient states shortness of breath started just prior to arrival while he was on the "commode". Patient had associated diaphoresis but denies nausea, lightheadedness and chest pain. Does admit to a more productive cough over the last few days. Prior to arrival patient administered breathing treatments without improvement. But reports he did receive a breathing treatment by EMS and now reports some improvement of shortness of breath. Patient does continue to smoke. He states he has been compliant with his medication regimen. Denies any recent hospitalizations, fever. Upon arrival vital signs reviewed. Patient has mild retractions, and increased work of breathing. Exam is significant for diminished breath sounds, and peripheral edema. Patient did receive breathing treatments via EMS and reports some improvement. Patient on nasal cannula upon arrival. He is at 3 L NC. patient reports that this is what he uses at home. Patient reports intolerance to BiPAP and is declining to use at this time. IV Lasix administered. CBC shows a mild leukocytosis and anemia. CMP shows renal insufficiency which when compared to previous testing is at the patient's baseline. Cardiac enzymes within normal limits. BNP is elevated. Chest X-Ray Shows Vascular Congestion. Patient will be admitted by Dr. Elizabeth for CHF exacerbation, and diuresis. 09/29/17 22:23 09/30/17 02:20 09/30/17 02:24 - Vital Signs Vital signs: Temp Pulse Resp BP Pulse Ox 98.7 F 19 137/63 H 96 09/30/17 00:02 09/30/17 01:47 09/30/17 00:02 09/30/17 01:50 - Laboratory Result Diagrams: 09/29/17 18:38 09/29/17 18:38 Laboratory results interpreted by me: 09/29/17 09/29/17 09/29/17 18:38 18:38 18:38 WBC 11.3 H RBC 4.01 L Hgb 9.8 L Hct 31.1 L MCV 78 L MCH 24.4 L MCHC 31.4 L RDW 18.2 H Lymphocytes % 11.8 L Absolute Neutrophils 8.6 H Carbonic Acid ABG pCO2 ABG pO2 ABG HCO3 ABG Total CO2 ABG O2 Saturation VBG pCO2 VBG HCO3 Sodium 146.1 H Chloride 96 L Carbon Dioxide 37 H BUN 23 H Creatinine 1.43 H Est GFR ( Amer) 58 L Est GFR (Non-Af Amer) 48 L Glucose 137 H NT-Pro-B Natriuret Pep 2200 H Urine Protein 09/29/17 09/29/17 09/29/17 18:38 20:15 20:15 WBC RBC Hgb Hct MCV MCH MCHC RDW Lymphocytes % Absolute Neutrophils Carbonic Acid 1.88 H ABG pCO2 62.5 H ABG pO2 43.0 L ABG HCO3 37.7 H ABG Total CO2 39.6 H ABG O2 Saturation 77.1 L VBG pCO2 70.1 H* VBG HCO3 38.2 H Sodium Chloride Carbon Dioxide BUN Creatinine Est GFR ( Amer) Est GFR (Non-Af Amer) Glucose NT-Pro-B Natriuret Pep Urine Protein 30 H - Diagnostic Test Radiology reviewed: Image reviewed, Reports reviewed Discharge - Discharge Clinical Impression: COPD exacerbation, Tobacco abuse Congestive heart disease Qualifiers: Heart failure type: unspecified Heart failure chronicity: acute on chronic Qualified Code(s): I50.9 - Heart failure, unspecified CHF exacerbation Qualifiers: Heart failure type: unspecified Qualified Code(s): I50.9 - Heart failure, unspecified Condition: Good Disposition: ADMITTED INPATIENT Admitting Provider: Stacy Unit Admitted: [facility]
[2017-09-29 19:39] LABS: ABSOLUTE BASOPHILS # (AUTO) 0.1 10^3/uL (0.0-0.2); ABSOLUTE EOSINOPHILS # (AUTO) 0.2 10^3/uL (0.0-0.6); ABSOLUTE LYMPHOCYTES (AUTO) 1.3 10^3/uL (0.5-4.7); ABSOLUTE NEUT (AUTO) 8.6 10^3/uL (1.7-8.2); BASOPHILS % (AUTO) 0.7 % (0-2); EOSINOPHILS % (AUTO) 2.2 % (0-6); HEMATOCRIT 31.1 % (37.9-51.0); HEMOGLOBIN 9.8 g/dL (13.5-17.0); LYMPHOCYTES % (AUTO) 11.8 % (13-45); MEAN CORPUSCULAR HEMOGLOBIN 24.4 pg (27.0-33.4); MEAN CORPUSCULAR HGB CONC 31.4 g/dL (32.0-36.0); MEAN CORPUSCULAR VOLUME 78 fl (80-97); MONOCYTES % (AUTO) 8.8 % (3-13); PLATELET COUNT 389 10^3/uL (150-450); RED BLOOD COUNT 4.01 10^6/uL (4.35-5.55); RED CELL DISTRIBUTION WIDTH 18.2 % (11.5-14.0); SEGMENTED NEUTROPHILS % (AUTO) 76.5 % (42-78); TOTAL CELLS COUNTED % (AUTO) 100 %; WHITE BLOOD COUNT 11.3 10^3/uL (4.0-10.5)
[2017-09-29 19:46] LABS: VENOUS BLOOD BASE EXCESS 10.5 mmol/L; VENOUS BLOOD HCO3 38.2 mmol/L (20-32); VENOUS BLOOD PH 7.35 (7.30-7.42)
[2017-09-29 19:53] LABS: ALANINE AMINOTRANSFERASE 22 U/L (21-72); ALBUMIN 3.6 g/dL (3.5-5.0); ALKALINE PHOSPHATASE 78 U/L (38-126); ANION GAP 13 (5-19); ASPARTATE AMINO TRANSFERASE 20 U/L (17-59); BILIRUBIN,DIRECT 0.3 mg/dL (0.0-0.4); BILIRUBIN,TOTAL 0.3 mg/dL (0.2-1.3); BLOOD UREA NITROGEN 23 mg/dL (7-20); CALCIUM 9.2 mg/dL (8.4-10.2); CARBON DIOXIDE 37 mmol/L (22-30); CHLORIDE 96 mmol/L (98-107); CREATINE KINASE 84 U/L (55-170); GLUCOSE 137 mg/dL (75-110); POTASSIUM 4.1 mmol/L (3.6-5.0); SODIUM 146.1 mmol/L (137-145); TOTAL PROTEIN 6.5 g/dL (6.3-8.2); VENOUS BLOOD PCO2 70.1 mmHg (35-63)
--- NOTE | 2017-09-29 20:01 | RADIOLOGY REPORT (SQ) ---
EXAM DESCRIPTION: CHEST 2 VIEWS COMPLETED DATE/TIME: 09/29/2017 7:49 pm REASON FOR STUDY: sob COMPARISON: 08/08/2016 NUMBER OF VIEWS: Two views. TECHNIQUE: Frontal and lateral radiographic views of the chest acquired. LIMITATIONS: None. FINDINGS: LUNGS AND PLEURA: No opacities, masses or pneumothorax. No pleural effusion. MEDIASTINUM AND HILAR STRUCTURES: No masses or contour abnormality. HEART AND VASCULAR STRUCTURES: Cardiac enlargement. Vascular congestion. BONES: No acute findings. HARDWARE: None in the chest. OTHER: No other significant finding. IMPRESSION: CARDIAC ENLARGEMENT. VASCULAR CONGESTION. TECHNICAL DOCUMENTATION: JOB ID: [id number] [employer]- All Rights Reserved Reading location - IP/workstation name: [email or web address]
[2017-09-29 20:05] LABS: CREATINE KINASE MB 1.06 ng/mL (<4.55); TROPONIN I 0.028 ng/mL
[2017-09-29 20:35] LABS: ARTERIAL BLOOD H2CO3 1.88 mmol/L (1.05-1.35); ARTERIAL BLOOD HCO3 37.7 mmol/L (20-26); ARTERIAL BLOOD O2 SATURATION 77.1 % (94-98); ARTERIAL BLOOD PCO2 62.5 mmHg (35-45); ARTERIAL BLOOD TOTAL CO2 39.6 mmol/L (23-27)
[2017-09-29 20:39] LABS: ARTERIAL BLOOD FIO2 4L
[2017-09-29 20:45] LABS: APPEARANCE,URINE CLEAR; BILIRUBIN,URINE NEGATIVE (NEGATIVE); COLOR,URINE YELLOW; GLUCOSE, URINE NEGATIVE (NEGATIVE); KETONES,URINE NEGATIVE (NEGATIVE); LEUKOCYTE ESTERASE,URINE NEGATIVE (NEGATIVE); NITRITE,URINE NEGATIVE (NEGATIVE); PROTEIN,URINE 30 mg/dL (NEGATIVE); URINE SPECIFIC GRAVITY 1.009; UROBILINOGEN,URINE NEGATIVE mg/dL (<2.0)
[2017-09-29] MEDS ORDERED: ACETAMINOPHEN 325 MG TABLET ONE (22:07)
[2017-09-30] MEDS ORDERED: GLUCAGON,HUMAN RECOMB 1 MG INJ IM PRN (01:45)
[2017-09-30] MEDS ORDERED: DEXTROSE 40% GEL 15 GM TUBE X 2 PO PRN (01:45)
[2017-09-30] MEDS ORDERED: DEXTROSE 50%-WATER SYRINGE 12.5 GM/25 ML DOSE IV PRN (01:45)
[2017-09-30] MEDS ORDERED: DEXTROSE 50%-WATER SYRINGE 25 GM/50 ML DOSE IV PRN (01:45)
[2017-09-30] MEDS ORDERED: DEXTROSE 40% GEL 15 GM TUBE PO PRN (01:45)
[2017-09-30] MEDS ORDERED: VALSARTAN 80 MG TABLET PO SCH (06:00)
[2017-09-30] MEDS: LANSOPRAZOLE 30 MG TAB.RAP.DR PO SCH (06:22)
[2017-09-30] MEDS: ENOXAPARIN SODIUM INJ 40 MG/0.4 ML DISP.SYRIN SUBCUT SCH (09:06)
[2017-09-30] MEDS: ACETAMINOPHEN 325 MG TABLET PO PRN ×2 (09:06→14:06)
[2017-09-30] MEDS: IPRATROPIUM/ALBUTEROL 0.5-2.5 MG/3 ML AMPUL NEB PRN ×4 (09:28→23:40)
[2017-09-30] MEDS ORDERED: FUROSEMIDE INJ/PF 40 MG/4 ML SDV IV SCH (10:00)
[2017-09-30] MEDS: INSULIN LISPRO 100 UNIT/ML 3 ML VIAL SUBCUT PRN ×3 (12:51→22:51)
[2017-09-30 16:10] LABS: CREATINE KINASE MB 1.19 ng/mL (<4.55); TROPONIN I 0.025 ng/mL
[2017-09-30 17:04] LABS: ARTERIAL BLOOD H2CO3 1.85 mmol/L (1.05-1.35); ARTERIAL BLOOD HCO3 37.4 mmol/L (20-26); ARTERIAL BLOOD O2 SATURATION 92.7 % (94-98); ARTERIAL BLOOD PCO2 61.5 mmHg (35-45); ARTERIAL BLOOD PO2 66.7 mmHg (80-100); ARTERIAL BLOOD TOTAL CO2 39.3 mmol/L (23-27)
[2017-09-30 17:05] LABS: ARTERIAL BLOOD FIO2 3L
[2017-09-30] MEDS: METHYLPREDNISOLONE INJ 40 MG/1 ML SDV IV SCH (17:47)
[2017-09-30] MEDS: HYDROCODONE/ACETAMINOPHEN 10-325 MG TABLET PO PRN (17:48)
[2017-09-30 21:56] LABS: CREATINE KINASE MB 1.22 ng/mL (<4.55); TROPONIN I 0.029 ng/mL
[2017-09-30] MEDS ORDERED: (PENDING PHARMACY ID) (Pramipexole Di-Hcl [Mirapex] 0.125 MG) PO SCH (22:00)
[2017-09-30] MEDS: VALSARTAN 80 MG TABLET PO SCH (22:51)
[2017-09-30] MEDS: MONTELUKAST SODIUM 10 MG TABLET PO SCH (22:51)
[2017-09-30] MEDS: ATORVASTATIN CALCIUM 10 MG TABLET PO SCH (22:52)
[2017-09-30] MEDS: PRAMIPEXOLE DI-HCL 0.25 MG TABLET PO SCH (22:52)
[2017-10-01] MEDS: METHYLPREDNISOLONE INJ 40 MG/1 ML SDV IV SCH ×3 (01:38→17:53)
[2017-10-01 04:06] LABS: ALANINE AMINOTRANSFERASE 23 U/L (21-72); ALBUMIN 3.3 g/dL (3.5-5.0); ALKALINE PHOSPHATASE 66 U/L (38-126); ANION GAP 10 (5-19); ASPARTATE AMINO TRANSFERASE 16 U/L (17-59); BILIRUBIN,DIRECT 0.2 mg/dL (0.0-0.4); BILIRUBIN,TOTAL 0.2 mg/dL (0.2-1.3); BLOOD UREA NITROGEN 25 mg/dL (7-20); CARBON DIOXIDE 36 mmol/L (22-30); CHLORIDE 96 mmol/L (98-107); GLUCOSE 237 mg/dL (75-110); HEMATOCRIT 28.1 % (37.9-51.0); HEMOGLOBIN 8.8 g/dL (13.5-17.0); MEAN CORPUSCULAR HEMOGLOBIN 24.5 pg (27.0-33.4); MEAN CORPUSCULAR HGB CONC 31.4 g/dL (32.0-36.0); MEAN CORPUSCULAR VOLUME 78 fl (80-97); PLATELET COUNT 315 10^3/uL (150-450); POTASSIUM 4.6 mmol/L (3.6-5.0); RED CELL DISTRIBUTION WIDTH 18.2 % (11.5-14.0); SODIUM 142.1 mmol/L (137-145); TOTAL PROTEIN 5.8 g/dL (6.3-8.2); WHITE BLOOD COUNT 9.3 10^3/uL (4.0-10.5)
[2017-10-01 04:16] LABS: CREATINE KINASE MB 1.11 ng/mL (<4.55); TROPONIN I 0.017 ng/mL
[2017-10-01] MEDS: IPRATROPIUM/ALBUTEROL 0.5-2.5 MG/3 ML AMPUL NEB PRN ×3 (04:19→21:25)
[2017-10-01 04:21] LABS: ABSOLUTE LYMPHOCYTES# (MANUAL) 0.5 10^3/uL (0.5-4.7); ABSOLUTE MONOCYTES # (MANUAL) 0.1 10^3/uL (0.1-1.4); ABSOLUTE NEUTROPHILS# (MANUAL) 8.7 10^3/uL (1.7-8.2); BASOPHILS % (MANUAL) 0 % (0-2); EOSINOPHILS % (MANUAL) 0 % (0-6); LYMPHOCYTES % (MANUAL) 5 % (13-45); MONOCYTES % (MANUAL) 1 % (3-13); SEGMENTED NEUTROPHILS % (MAN) 94 % (42-78); TOTAL CELLS COUNTED 100
[2017-10-01 04:22] LABS: ANISOCYTOSIS 2+; HYPOCHROMASIA 2+; POIKILOCYTOSIS 1+
[2017-10-01 04:23] LABS: OVALOCYTES SLIGHT; PLATELET COMMENT ADEQUATE; STOMATOCYTES SLIGHT
[2017-10-01] MEDS: LANSOPRAZOLE 30 MG TAB.RAP.DR PO SCH (05:34)
[2017-10-01] MEDS: HYDROCODONE/ACETAMINOPHEN 10-325 MG TABLET PO PRN ×2 (05:38→19:55)
[2017-10-01] MEDS: INSULIN LISPRO 100 UNIT/ML 3 ML VIAL SUBCUT PRN ×4 (08:04→23:32)
[2017-10-01] MEDS: VALSARTAN 80 MG TABLET PO SCH ×2 (10:05→22:50)
[2017-10-01] MEDS: DULOXETINE HCL 30 MG CAPSULE.DR PO SCH (10:05)
[2017-10-01] MEDS: FUROSEMIDE INJ/PF 40 MG/4 ML SDV IV SCH (10:05)
[2017-10-01] MEDS: ALLOPURINOL 100 MG TABLET PO SCH (10:05)
[2017-10-01] MEDS: ASPIRIN 81 MG TABLET, CHEWABLE PO SCH (10:06)
[2017-10-01] MEDS: ENOXAPARIN SODIUM INJ 40 MG/0.4 ML DISP.SYRIN SUBCUT SCH (10:06)
--- NOTE | 2017-10-01 21:23 | PDOC PROGRESS REPORT ---
Subjective Progress Note for:: 10/01/17 Subjective:: Patient was seen by the bedside, he has chronic obstructive pulmonary disease, hypertension, chronic diastolic heart failure, a recalcitrant smoker admitted over the weekend for evaluation of respiratory distress, shortness of breath, he was seen by the bedside Reason For Visit: COPD EXACERBATION Physical Exam Vital Signs: Temp Pulse Resp BP Pulse Ox 98.5 F 94 25 H 151/74 H 97 10/01/17 15:01 10/01/17 15:01 10/01/17 21:07 10/01/17 15:01 10/01/17 21:07 Intake & Output 09/30/17 10/01/17 10/02/17 06:59 06:59 06:59 Intake Total 125 1486 922 Output Total 400 1370 525 Balance -275 116 397 Weight 132.8 kg 131 kg General appearance: PRESENT: mild distress Eye exam: PRESENT: PERRLA Respiratory exam: PRESENT: decreased breath sounds Cardiovascular exam: PRESENT: +S1, +S2 GI/Abdominal exam: PRESENT: soft Extremities exam: PRESENT: pedal edema Neurological exam: PRESENT: alert Results Laboratory Results: 10/01/17 03:13 10/01/17 03:13 10/01/17 10/01/17 03:13 03:13 WBC 9.3 RBC 3.60 L Hgb 8.8 L Hct 28.1 L MCV 78 L MCH 24.5 L MCHC 31.4 L RDW 18.2 H Plt Count 315 Seg Neutrophils % Not Reportable Lymphocytes % Not Reportable Monocytes % Not Reportable Eosinophils % Not Reportable Basophils % Not Reportable Absolute Neutrophils Not Reportable Absolute Lymphocytes Not Reportable Absolute Monocytes Not Reportable Absolute Eosinophils Not Reportable Absolute Basophils Not Reportable Sodium 142.1 Potassium 4.6 Chloride 96 L Carbon Dioxide 36 H Anion Gap 10 BUN 25 H Creatinine 1.28 H Est GFR ( Amer) > 60 Est GFR (Non-Af Amer) 54 L Glucose 237 H Calcium 9.0 Total Bilirubin 0.2 AST 16 L ALT 23 Alkaline Phosphatase 66 Total Protein 5.8 L Albumin 3.3 L 09/30/17 09/30/17 09/30/17 15:17 15:17 21:00 Creatine Kinase 67 67 CK-MB (CK-2) 1.19 Troponin I 0.025 09/30/17 10/01/17 10/01/17 21:00 03:13 03:13 Creatine Kinase 69 CK-MB (CK-2) 1.22 1.11 Troponin I 0.029 0.017 Impressions: Chest X-Ray 09/29/17 19:14 IMPRESSION: CARDIAC ENLARGEMENT. VASCULAR CONGESTION. Assessment & Plan - Diagnosis (1) COPD exacerbation Is this a current diagnosis for this admission?: Yes (2) Acute on chronic diastolic (congestive) heart failure Is this a current diagnosis for this admission?: Yes (3) Diabetes mellitus type 2 in obese Is this a current diagnosis for this admission?: Yes (4) Essential hypertension Is this a current diagnosis for this admission?: Yes - Plan Summary Plan Summary: Chart was reviewed, continue present treatment, patient is a DNR status, this to be entered in the record
--- NOTE | 2017-10-01 21:31 | PDOC H&P ---
History of Present Illness Admission Date/PCP: 09/29/17 21:32 CARRILLO GARCIA MD Patient complains of: Difficulty with breathing History of Present Illness: Earnest PIMENTEL is a 77 year old male of Dr Garcia who presented at the ED via EMS with complain of recent worsening of his breathing prior to arrival of EMS personnel while he was on his commode. Patient denied any associated chest pain or palpitation but noted breaking out in sweats. There is associated productive cough for couple of days. He denied any significant fever or chills. He claimed compliance with his medication but continue to smoke cigarette. His initial evaluation in the ED was remarkable for significant tachycardia, tachypnea and CO2 retention. HE was initially treated with IV Lasix, bronchodilators and BiPAP support. His morbidities include COPD, HTN, Chronic A.Fib CAD s/p stent angioplasty, Hyperlipidemia, DM type 2, GERD, Mixed Anxiety and Depression. He was advised hospitalization for further evaluation and management. Past Medical History Cardiac Medical History: Reports: Atrial Fibrillation, Coronary Artery Disease, Myocardial Infarction, Hyperlipidema, Hypertension Denies: Congestive Heart Failure, DVT, Pulmonary Embolism Pulmonary Medical History: Reports: Bronchitis, Chronic Obstructive Pulmonary Disease (COPD) Endocrine Medical History: Reports: Diabetes Mellitus Type 2 GI Medical History: Reports: Gastroesophageal Reflux Disease Psychiatric Medical History: Reports: Depression Past Surgical History Past Surgical History: Reports: Cardiac Catheterization - stent, Coronary Stent , Orthopedic Surgery - neck Social History Lives with: Family Smoking Status: Never Smoker Cigarettes Packs Per Day: 0.5 Number of Years Smokin Last Time Smoked: t-1 Frequency of Alcohol Use: None Hx Recreational Drug Use: No Drugs: None Hx Prescription Drug Abuse: No - Advance Directive Resuscitation Status: Full Code Family History Family History: Reviewed & Not Pertinent Parental Family History Reviewed: Yes Children Family History Reviewed: Yes Sibling(s) Family History Reviewed.: Yes Medication/Allergy Home Medications: Allopurinol [Zyloprim 100 mg Tablet] 100 mg PO DAILY 09/30/17 Aspirin [Aspirin 81 mg Chewable Tablet] 81 mg PO DAILY 09/30/17 Duloxetine HCl [Cymbalta] 60 mg PO DAILY 09/30/17 Furosemide [Lasix 40 mg Tablet] 40 mg PO .ASDIR 09/30/17 Hydrocodone/Acetaminophen [[place] 10-325 mg Tablet] 1 tab PO Q8HP PRN 09/30/17 Metformin HCl [Glucophage] 500 mg PO BID 09/30/17 Metoprolol Succinate [Toprol Xl 25 mg Tab.sr] 25 mg PO DAILY 09/30/17 Montelukast Sodium [Singulair 10 mg Tablet] 10 mg PO QHS 09/30/17 Pramipexole Di-HCl [Mirapex] 0.125 mg PO QHS 09/30/17 Pravastatin Sodium [Pravachol] 20 mg PO DAILY 09/30/17 Allergies/Adverse Reactions: quinine [Quinine] Allergy (Verified 06/04/17 13:30) Review of Systems Constitutional: ABSENT: chills, fever(s), headache(s), weight gain, weight loss Eyes: ABSENT: visual disturbances Ears: ABSENT: hearing changes Nose, Mouth, and Throat: ABSENT: as per HPI, headache(s), mouth pain, sore throat, vertigo, other Cardiovascular: PRESENT: dyspnea on exertion, edema Respiratory: PRESENT: cough, dyspnea Gastrointestinal: ABSENT: abdominal pain, constipation, diarrhea, hematemesis, hematochezia, nausea, vomiting Genitourinary: ABSENT: dysuria, hematuria Musculoskeletal: ABSENT: joint swelling Integumentary: PRESENT: diaphoresis Neurological: ABSENT: abnormal gait, abnormal speech, confusion, dizziness, focal weakness, syncope Psychiatric: PRESENT: anxiety, depression Endocrine: ABSENT: cold intolerance, heat intolerance, polydipsia, polyuria Hematologic/Lymphatic: ABSENT: easy bleeding, easy bruising, lymphadenopathy Allergic/Immunologic: ABSENT: seasonal rhinorrhea Physical Exam Vital Signs: Temp Pulse Resp BP Pulse Ox 97.4 F 59 L 24 H 120/73 100 09/30/17 12:00 09/30/17 12:00 09/30/17 12:00 09/30/17 12:00 09/30/17 12:00 Intake & Output 09/29/17 09/30/17 10/01/17 06:59 06:59 06:59 Intake Total 125 697 Output Total 400 300 Balance -275 397 Weight 132.8 kg General appearance: PRESENT: mild distress - with supplemental xygen via nasal cannula, obese Head exam: PRESENT: atraumatic, normocephalic Eye exam: PRESENT: conjunctiva pink, EOMI, PERRLA. ABSENT: scleral icterus Ear exam: PRESENT: normal external ear exam Mouth exam: PRESENT: moist, tongue midline Neck exam: PRESENT: full ROM. ABSENT: carotid bruit, JVD, lymphadenopathy, thyromegaly Respiratory exam: PRESENT: decreased breath sounds, rhonchi - expiratory phase, tachypnea Cardiovascular exam: PRESENT: irregular rhythm, +S1, +S2. ABSENT: diastolic murmur, rubs, systolic murmur Pulses: PRESENT: +1 pedal pulses bilateral Vascular exam: PRESENT: normal capillary refill. ABSENT: pallor GI/Abdominal exam: PRESENT: distended, normal bowel sounds, soft. ABSENT: guarding, mass, organolmegaly, rebound, tenderness Rectal exam: PRESENT: deferred Extremities exam: PRESENT: pedal edema - bilateral 1+ Musculoskeletal exam: PRESENT: deformity - related to multiple joints involvement witha arthritis Neurological exam: PRESENT: alert, awake, oriented to person, oriented to place , oriented to time, oriented to situation, CN II-XII grossly intact. ABSENT: motor sensory deficit Psychiatric exam: PRESENT: appropriate affect, normal mood. ABSENT: homicidal ideation, suicidal ideation Skin exam: PRESENT: dry, skin tears - beneath right knee joint, warm. ABSENT: cyanosis, rash Results Laboratory Results: I reviewed his laboratory result on [employer] and form significant part of my medical decision making. Impressions: Chest X-Ray 09/29/17 19:14 IMPRESSION: CARDIAC ENLARGEMENT. VASCULAR CONGESTION. Assessment & Plan - Diagnosis (1) Acute exacerbation of chronic obstructive pulmonary disease (COPD) Is this a current diagnosis for this admission?: Yes Plan: See covering admitting physician orders. (2) Acute hypercapnic respiratory failure Is this a current diagnosis for this admission?: Yes Plan: See covering admitting physician orders. Patient will remain on BiPAP support. (3) Acute on chronic diastolic (congestive) heart failure Is this a current diagnosis for this admission?: Yes Plan: See covering admitting physician orders. His echocardiogram completed on 2017 did revealed preserved LVEF with mild to moderate diastolic dysfunction (4) Essential hypertension Is this a current diagnosis for this admission?: Yes Plan: See covering admitting physician orders. (5) CAD S/P percutaneous coronary angioplasty Is this a current diagnosis for this admission?: Yes Plan: See covering admitting physician orders. (6) Diabetes mellitus type 2 in obese Is this a current diagnosis for this admission?: Yes Plan: See covering admitting physician orders. (7) HLD (hyperlipidemia) Qualifiers: Hyperlipidemia type: pure hypercholesterolemia Qualified Code(s): E78.00 - Pure hypercholesterolemia, unspecified; E78.0 - Pure hypercholesterolemia Is this a current diagnosis for this admission?: Yes Plan: See covering admitting physician orders. (8) GERD (gastroesophageal reflux disease) Qualifiers: Esophagitis presence: esophagitis presence not specified Qualified Code(s) : K21.9 - Gastro-esophageal reflux disease without esophagitis Is this a current diagnosis for this admission?: Yes Plan: See covering admitting physician orders. (9) Tobacco abuse Is this a current diagnosis for this admission?: Yes Plan: See covering admitting physician orders. - Time Time Spent: 50 to 70 Minutes Medications reviewed and adjusted accordingly: Yes Anticipated discharge: Home with Homehealth Within: Other - Inpatient Certification Based on my medical assessment, after consideration of the patient's comorbidities, presenting symptoms, or acuity I expect that the services needed warrant INPATIENT care.: Yes I certify that my determination is in accordance with my understanding of Medicare's requirements for reasonable and necessary INPATIENT services [42 CFR 412.3e].: Yes Medical Necessity: Need Close Monitoring Due to Risk of Patient Decompensation, Need For Continuous Telemetry Monitoring, Need for Nebulizer Therapy and Monitoring of Response, Risk of Complication if Not Cared For in Hospital Post Hospital Care: D/C [facility] Documentation - Plan Summary Plan Summary: See covering admitting physician orders.
[2017-10-01] MEDS: MONTELUKAST SODIUM 10 MG TABLET PO SCH (22:51)
[2017-10-01] MEDS: ATORVASTATIN CALCIUM 10 MG TABLET PO SCH (22:51)
[2017-10-01] MEDS: PRAMIPEXOLE DI-HCL 0.25 MG TABLET PO SCH (22:52)
[2017-10-02] MEDS: METHYLPREDNISOLONE INJ 40 MG/1 ML SDV IV SCH ×3 (03:04→17:04)
[2017-10-02] MEDS: HYDROCODONE/ACETAMINOPHEN 10-325 MG TABLET PO PRN ×2 (03:43→22:05)
[2017-10-02] MEDS: LANSOPRAZOLE 30 MG TAB.RAP.DR PO SCH (06:06)
[2017-10-02] MEDS: INSULIN LISPRO 100 UNIT/ML 3 ML VIAL SUBCUT PRN ×4 (07:30→22:13)
[2017-10-02] MEDS: IPRATROPIUM/ALBUTEROL 0.5-2.5 MG/3 ML AMPUL NEB PRN ×3 (08:10→19:05)
[2017-10-02] MEDS: VALSARTAN 80 MG TABLET PO SCH ×2 (09:10→22:09)
[2017-10-02] MEDS: ASPIRIN 81 MG TABLET, CHEWABLE PO SCH (09:10)
[2017-10-02] MEDS: ALLOPURINOL 100 MG TABLET PO SCH (09:10)
[2017-10-02] MEDS: DULOXETINE HCL 30 MG CAPSULE.DR PO SCH (09:10)
[2017-10-02] MEDS: ENOXAPARIN SODIUM INJ 40 MG/0.4 ML DISP.SYRIN SUBCUT SCH (09:11)
[2017-10-02] MEDS: FUROSEMIDE INJ/PF 40 MG/4 ML SDV IV SCH (09:11)
[2017-10-02 09:23] LABS: HEMATOCRIT 27.9 % (37.9-51.0); HEMOGLOBIN 8.7 g/dL (13.5-17.0); MEAN CORPUSCULAR HEMOGLOBIN 24.3 pg (27.0-33.4); MEAN CORPUSCULAR HGB CONC 31.3 g/dL (32.0-36.0); MEAN CORPUSCULAR VOLUME 78 fl (80-97); PLATELET COUNT 333 10^3/uL (150-450); RED BLOOD COUNT 3.59 10^6/uL (4.35-5.55); RED CELL DISTRIBUTION WIDTH 18.4 % (11.5-14.0); WHITE BLOOD COUNT 10.9 10^3/uL (4.0-10.5)
[2017-10-02 09:36] LABS: ALANINE AMINOTRANSFERASE 27 U/L (21-72); ALBUMIN 3.3 g/dL (3.5-5.0); ALKALINE PHOSPHATASE 65 U/L (38-126); ANION GAP 9 (5-19); ASPARTATE AMINO TRANSFERASE 15 U/L (17-59); BILIRUBIN,DIRECT 0.2 mg/dL (0.0-0.4); BILIRUBIN,TOTAL 0.2 mg/dL (0.2-1.3); BLOOD UREA NITROGEN 34 mg/dL (7-20); CALCIUM 9.1 mg/dL (8.4-10.2); CARBON DIOXIDE 35 mmol/L (22-30); CHLORIDE 95 mmol/L (98-107); GLUCOSE 300 mg/dL (75-110); POTASSIUM 5.1 mmol/L (3.6-5.0); SODIUM 139.3 mmol/L (137-145); TOTAL PROTEIN 5.7 g/dL (6.3-8.2)
[2017-10-02 09:48] LABS: ABSOLUTE LYMPHOCYTES# (MANUAL) 0.3 10^3/uL (0.5-4.7); ABSOLUTE MONOCYTES # (MANUAL) 0.5 10^3/uL (0.1-1.4); BASOPHILS % (MANUAL) 0 % (0-2); EOSINOPHILS % (MANUAL) 0 % (0-6); LYMPHOCYTES % (MANUAL) 3 % (13-45); MONOCYTES % (MANUAL) 5 % (3-13); SEGMENTED NEUTROPHILS % (MAN) 92 % (42-78); TOTAL CELLS COUNTED 100
[2017-10-02 09:50] LABS: ANISOCYTOSIS 2+; HYPOCHROMASIA 2+; OVALOCYTES SLIGHT; PLATELET COMMENT ADEQUATE; POIKILOCYTOSIS SLIGHT; TOXIC GRANULATION SLIGHT
[2017-10-02] MEDS: ACETAMINOPHEN 325 MG TABLET PO PRN (11:48)
--- NOTE | 2017-10-02 21:13 | PDOC PROGRESS REPORT ---
Subjective Progress Note for:: 10/02/17 Subjective:: Patient was seen by the bedside he has difficult IV access, the sputum culture grew morax catarrhalis positive for beta-lactamase. The IV medication will be discontinued he will be transitioned to p.o. prednisone, p.o. furosemide and he will be treated with macrolid azithromycin Reason For Visit: COPD EXACERBATION Physical Exam Vital Signs: Temp Pulse Resp BP Pulse Ox 98.3 F 96 24 H 136/89 H 100 10/02/17 19:24 10/02/17 19:24 10/02/17 19:24 10/02/17 19:24 10/02/17 19:24 Intake & Output 10/01/17 10/02/17 10/03/17 06:59 06:59 06:59 Intake Total 1486 1169 1148 Output Total 1370 850 700 Balance 116 319 448 Weight 131 kg 128.9 kg General appearance: PRESENT: no acute distress Eye exam: PRESENT: PERRLA Respiratory exam: PRESENT: wheezes Cardiovascular exam: PRESENT: +S1, +S2 GI/Abdominal exam: PRESENT: soft Neurological exam: PRESENT: alert Results Laboratory Results: 10/02/17 08:52 10/02/17 08:52 10/02/17 10/02/17 08:52 08:52 WBC 10.9 H RBC 3.59 L Hgb 8.7 L Hct 27.9 L MCV 78 L MCH 24.3 L MCHC 31.3 L RDW 18.4 H Plt Count 333 Seg Neutrophils % Not Reportable Lymphocytes % Not Reportable Monocytes % Not Reportable Eosinophils % Not Reportable Basophils % Not Reportable Absolute Neutrophils Not Reportable Absolute Lymphocytes Not Reportable Absolute Monocytes Not Reportable Absolute Eosinophils Not Reportable Absolute Basophils Not Reportable Sodium 139.3 Potassium 5.1 H Chloride 95 L Carbon Dioxide 35 H Anion Gap 9 BUN 34 H Creatinine 1.19 Est GFR ( Amer) > 60 Est GFR (Non-Af Amer) 59 L Glucose 300 H Calcium 9.1 Total Bilirubin 0.2 AST 15 L ALT 27 Alkaline Phosphatase 65 Total Protein 5.7 L Albumin 3.3 L 09/30/17 09/30/17 09/30/17 15:17 15:17 21:00 Creatine Kinase 67 67 CK-MB (CK-2) 1.19 Troponin I 0.025 09/30/17 10/01/17 10/01/17 21:00 03:13 03:13 Creatine Kinase 69 CK-MB (CK-2) 1.22 1.11 Troponin I 0.029 0.017 Impressions: Chest X-Ray 09/29/17 19:14 IMPRESSION: CARDIAC ENLARGEMENT. VASCULAR CONGESTION. Assessment & Plan - Diagnosis (1) COPD exacerbation Is this a current diagnosis for this admission?: Yes (2) Acute on chronic diastolic (congestive) heart failure Is this a current diagnosis for this admission?: Yes (3) Diabetes mellitus type 2 in obese Is this a current diagnosis for this admission?: Yes (4) Essential hypertension Is this a current diagnosis for this admission?: Yes (5) Moraxella catarrhalis pneumonia Is this a current diagnosis for this admission?: Yes Plan: Start p.o. azithromycin
[2017-10-02] MEDS ORDERED: PREDNISONE 10 MG TABLET PO SCH (22:00)
[2017-10-02] MEDS: AZITHROMYCIN 250 MG TABLET PO SCH (22:07)
[2017-10-02] MEDS: FUROSEMIDE 40 MG TABLET PO SCH (22:08)
[2017-10-02] MEDS: ATORVASTATIN CALCIUM 10 MG TABLET PO SCH (22:09)
[2017-10-02] MEDS: PRAMIPEXOLE DI-HCL 0.25 MG TABLET PO SCH (22:10)
[2017-10-02] MEDS: MONTELUKAST SODIUM 10 MG TABLET PO SCH (22:10)
[2017-10-03] MEDS: LANSOPRAZOLE 30 MG TAB.RAP.DR PO SCH (05:48)
[2017-10-03] MEDS: INSULIN LISPRO 100 UNIT/ML 3 ML VIAL SUBCUT PRN ×4 (05:48→23:05)
[2017-10-03 06:12] LABS: HEMATOCRIT 27.1 % (37.9-51.0); HEMOGLOBIN 8.7 g/dL (13.5-17.0); MEAN CORPUSCULAR HEMOGLOBIN 24.4 pg (27.0-33.4); MEAN CORPUSCULAR HGB CONC 32.1 g/dL (32.0-36.0); MEAN CORPUSCULAR VOLUME 76 fl (80-97); PLATELET COUNT 342 10^3/uL (150-450); RED BLOOD COUNT 3.56 10^6/uL (4.35-5.55); WHITE BLOOD COUNT 9.9 10^3/uL (4.0-10.5)
[2017-10-03 06:29] LABS: ALANINE AMINOTRANSFERASE 22 U/L (21-72); ALBUMIN 3.3 g/dL (3.5-5.0); ALKALINE PHOSPHATASE 59 U/L (38-126); ANION GAP 7 (5-19); ASPARTATE AMINO TRANSFERASE 16 U/L (17-59); BILIRUBIN,DIRECT 0.2 mg/dL (0.0-0.4); BILIRUBIN,TOTAL 0.2 mg/dL (0.2-1.3); BLOOD UREA NITROGEN 45 mg/dL (7-20); CARBON DIOXIDE 38 mmol/L (22-30); CHLORIDE 93 mmol/L (98-107); GLUCOSE 208 mg/dL (75-110); SODIUM 138.2 mmol/L (137-145); TOTAL PROTEIN 5.8 g/dL (6.3-8.2)
[2017-10-03 07:21] LABS: ABSOLUTE LYMPHOCYTES# (MANUAL) 0.5 10^3/uL (0.5-4.7); ABSOLUTE MONOCYTES # (MANUAL) 0.2 10^3/uL (0.1-1.4); ABSOLUTE NEUTROPHILS# (MANUAL) 9.2 10^3/uL (1.7-8.2); BASOPHILS % (MANUAL) 0 % (0-2); EOSINOPHILS % (MANUAL) 0 % (0-6); LYMPHOCYTES % (MANUAL) 5 % (13-45); MONOCYTES % (MANUAL) 2 % (3-13); SEGMENTED NEUTROPHILS % (MAN) 93 % (42-78); TOTAL CELLS COUNTED 100
[2017-10-03 07:22] LABS: ANISOCYTOSIS 1+; HYPOCHROMASIA 2+; OVALOCYTES 1+; PLATELET COMMENT ADEQUATE; POIKILOCYTOSIS 1+; POLYCHROMASIA SLIGHT
[2017-10-03] MEDS: IPRATROPIUM/ALBUTEROL 0.5-2.5 MG/3 ML AMPUL NEB PRN ×4 (08:57→22:20)
[2017-10-03] MEDS: ENOXAPARIN SODIUM INJ 40 MG/0.4 ML DISP.SYRIN SUBCUT SCH (09:00)
[2017-10-03] MEDS: FUROSEMIDE 40 MG TABLET PO SCH ×2 (09:00→23:04)
[2017-10-03] MEDS: ALLOPURINOL 100 MG TABLET PO SCH (09:01)
[2017-10-03] MEDS: DULOXETINE HCL 30 MG CAPSULE.DR PO SCH (09:01)
[2017-10-03] MEDS: VALSARTAN 80 MG TABLET PO SCH ×2 (09:01→23:03)
[2017-10-03] MEDS: ASPIRIN 81 MG TABLET, CHEWABLE PO SCH (09:01)
[2017-10-03] MEDS: HYDROCODONE/ACETAMINOPHEN 10-325 MG TABLET PO PRN (09:04)
--- NOTE | 2017-10-03 20:35 | PDOC PROGRESS REPORT ---
Subjective Progress Note for:: 10/03/17 Subjective:: Patient was seen by the bedside, he has chronic diastolic heart failure, severe COPD complicated with secondary pulmonary hypertension with excessive fluid retention. The record from [facility] was reviewed. Reason For Visit: COPD EXACERBATION Physical Exam Vital Signs: Temp Pulse Resp BP Pulse Ox 98.0 F 96 20 165/66 H 98 10/03/17 16:08 10/03/17 19:00 10/03/17 18:30 10/03/17 16:08 10/03/17 16:08 Intake & Output 10/02/17 10/03/17 10/04/17 06:59 06:59 06:59 Intake Total 1169 1981 1000 Output Total 850 1305 600 Balance 319 676 400 Weight 128.9 kg 131.7 kg General appearance: PRESENT: no acute distress Eye exam: PRESENT: PERRLA Respiratory exam: PRESENT: decreased breath sounds, symmetrical Cardiovascular exam: PRESENT: +S1, +S2 GI/Abdominal exam: PRESENT: soft Extremities exam: PRESENT: pedal edema Results Laboratory Results: 10/03/17 05:30 10/03/17 05:30 10/03/17 10/03/17 05:30 05:30 WBC 9.9 RBC 3.56 L Hgb 8.7 L Hct 27.1 L MCV 76 L MCH 24.4 L MCHC 32.1 RDW 18.0 H Plt Count 342 Seg Neutrophils % Not Reportable Lymphocytes % Not Reportable Monocytes % Not Reportable Eosinophils % Not Reportable Basophils % Not Reportable Absolute Neutrophils Not Reportable Absolute Lymphocytes Not Reportable Absolute Monocytes Not Reportable Absolute Eosinophils Not Reportable Absolute Basophils Not Reportable Sodium 138.2 Potassium 5.0 Chloride 93 L Carbon Dioxide 38 H Anion Gap 7 BUN 45 H Creatinine 1.22 Est GFR ( Amer) > 60 Est GFR (Non-Af Amer) 57 L Glucose 208 H Calcium 9.0 Total Bilirubin 0.2 AST 16 L ALT 22 Alkaline Phosphatase 59 Total Protein 5.8 L Albumin 3.3 L 09/30/17 09/30/17 09/30/17 15:17 15:17 21:00 Creatine Kinase 67 67 CK-MB (CK-2) 1.19 Troponin I 0.025 09/30/17 10/01/17 10/01/17 21:00 03:13 03:13 Creatine Kinase 69 CK-MB (CK-2) 1.22 1.11 Troponin I 0.029 0.017 Impressions: Chest X-Ray 09/29/17 19:14 IMPRESSION: CARDIAC ENLARGEMENT. VASCULAR CONGESTION. Assessment & Plan - Diagnosis (1) COPD exacerbation Is this a current diagnosis for this admission?: Yes Plan: Reduce dose of prednisone, patient is not overly wheezing presently (2) Acute on chronic diastolic (congestive) heart failure Is this a current diagnosis for this admission?: Yes (3) Diabetes mellitus type 2 in obese Is this a current diagnosis for this admission?: Yes (4) Essential hypertension Is this a current diagnosis for this admission?: Yes (5) Moraxella catarrhalis pneumonia Is this a current diagnosis for this admission?: Yes Plan: He has polymicrobial pneumonia, sputum culture positive for Moraxella catarrhalis and Streptococcus pneumonia, CT chest will be ordered
[2017-10-03] MEDS: AZITHROMYCIN 250 MG TABLET PO SCH (23:03)
[2017-10-03] MEDS: PREDNISONE 10 MG TABLET PO SCH (23:05)
[2017-10-03] MEDS: ATORVASTATIN CALCIUM 10 MG TABLET PO SCH (23:05)
[2017-10-03] MEDS: PRAMIPEXOLE DI-HCL 0.25 MG TABLET PO SCH (23:05)
[2017-10-03] MEDS: MONTELUKAST SODIUM 10 MG TABLET PO SCH (23:08)
--- NOTE | 2017-10-04 00:27 | RADIOLOGY REPORT (SQ) ---
EXAM DESCRIPTION: CT CHEST WITHOUT IV CONTRAST CLINICAL HISTORY: 77 years Male, pneumonia COMPARISON: .818. CR, 5..18 TECHNIQUE: No contrast. Coronal and sagittal reformat. This exam was performed according to our departmental dose-optimization program, which includes automated exposure control, adjustment of the mA and/or kV according to patient size and/or use of iterative reconstruction technique. Limitation: No contrast. FINDINGS: Moderate cardiac enlargement, mild interstitial markings, atherosclerosis, moderate coronary arterial calcification, subcentimeter pulmonary nodules of the right middle lobe without suspicious interval change, stable small pleural-based lingular scar-fibrosis, bilateral mediastinal lymphadenopathy, small paraseptal emphysema, small scattered atelectasis or scar, and diffuse idiopathic skeletal hyperostosis. Unenhanced inferior neck, axillae, airway, heart, upper abdomen, and musculoskeleton appear otherwise unremarkable. Impression: Mild CHF pattern. Differential diagnosis includes atypical pneumonitis.
[2017-10-04] MEDS: ACETAMINOPHEN 325 MG TABLET PO PRN (01:08)
[2017-10-04] MEDS: HYDROCODONE/ACETAMINOPHEN 10-325 MG TABLET PO PRN ×2 (01:11→10:58)
[2017-10-04] MEDS: LANSOPRAZOLE 30 MG TAB.RAP.DR PO SCH (05:34)
[2017-10-04] MEDS: INSULIN LISPRO 100 UNIT/ML 3 ML VIAL SUBCUT PRN ×3 (07:47→17:47)
[2017-10-04] MEDS: ASPIRIN 81 MG TABLET, CHEWABLE PO SCH (09:06)
[2017-10-04] MEDS: ALLOPURINOL 100 MG TABLET PO SCH (09:06)
[2017-10-04] MEDS: ENOXAPARIN SODIUM INJ 40 MG/0.4 ML DISP.SYRIN SUBCUT SCH (09:06)
[2017-10-04] MEDS: DULOXETINE HCL 30 MG CAPSULE.DR PO SCH (09:06)
[2017-10-04] MEDS: VALSARTAN 80 MG TABLET PO SCH ×2 (09:07→21:56)
[2017-10-04] MEDS: FUROSEMIDE 40 MG TABLET PO SCH (09:07)
[2017-10-04] MEDS: IPRATROPIUM/ALBUTEROL 0.5-2.5 MG/3 ML AMPUL NEB PRN ×3 (09:11→23:55)
[2017-10-04] MEDS ORDERED: NORMAL SALINE 250 ML with FUROSEMIDE 250 MG IV PRN ×2 (21:31)
--- NOTE | 2017-10-04 21:35 | PDOC PROGRESS REPORT ---
Subjective Progress Note for:: 10/04/17 Subjective:: Patient was seen by the bedside he has tremendous fluid retention, he will be treated with furosemide for 24 hours to help mobilize the fluid from the third space to intravascular compartment Reason For Visit: COPD EXACERBATION Physical Exam Vital Signs: Temp Pulse Resp BP Pulse Ox 97.4 F 71 20 140/63 H 97 10/04/17 19:22 10/04/17 20:09 10/04/17 20:09 10/04/17 19:22 10/04/17 20:09 Intake & Output 10/03/17 10/04/17 10/05/17 06:59 06:59 06:59 Intake Total 1981 1980 1100 Output Total 2666 663 8480 Balance 676 1380 -1000 Weight 131.7 kg 131.2 kg General appearance: PRESENT: no acute distress Eye exam: PRESENT: PERRLA Respiratory exam: PRESENT: clear to auscultation lianne Cardiovascular exam: PRESENT: +S1, +S2 GI/Abdominal exam: PRESENT: soft Extremities exam: PRESENT: pedal edema Neurological exam: PRESENT: alert Results Laboratory Results: 10/03/17 05:30 10/03/17 05:30 10/01/17 06:30 Sputum Gram Stain - Final 10/01/17 06:30 Sputum Sputum Culture - Final Streptococcus Pneumoniae Morax.(Branhamella)Catarrhalis Normal Kathleen Absent 09/30/17 09/30/17 09/30/17 15:17 15:17 21:00 Creatine Kinase 67 67 CK-MB (CK-2) 1.19 Troponin I 0.025 09/30/17 10/01/17 10/01/17 21:00 03:13 03:13 Creatine Kinase 69 CK-MB (CK-2) 1.22 1.11 Troponin I 0.029 0.017 Impressions: Chest X-Ray 09/29/17 19:14 IMPRESSION: CARDIAC ENLARGEMENT. VASCULAR CONGESTION. Assessment & Plan - Diagnosis (1) COPD exacerbation Is this a current diagnosis for this admission?: Yes (2) Acute on chronic diastolic (congestive) heart failure Is this a current diagnosis for this admission?: Yes (3) Diabetes mellitus type 2 in obese Is this a current diagnosis for this admission?: Yes (4) Essential hypertension Is this a current diagnosis for this admission?: Yes (5) Moraxella catarrhalis pneumonia Is this a current diagnosis for this admission?: Yes (6) Anasarca Is this a current diagnosis for this admission?: Yes Plan: Start Lasix infusion
[2017-10-04] MEDS: PRAMIPEXOLE DI-HCL 0.25 MG TABLET PO SCH (21:55)
[2017-10-04] MEDS: ATORVASTATIN CALCIUM 10 MG TABLET PO SCH (21:55)
[2017-10-04] MEDS: PREDNISONE 10 MG TABLET PO SCH (21:55)
[2017-10-04] MEDS: MONTELUKAST SODIUM 10 MG TABLET PO SCH (21:55)
[2017-10-04] MEDS: AZITHROMYCIN 250 MG TABLET PO SCH (22:32)
[2017-10-05] MEDS: ACETAMINOPHEN 325 MG TABLET PO PRN (02:23)
[2017-10-05] MEDS: IPRATROPIUM/ALBUTEROL 0.5-2.5 MG/3 ML AMPUL NEB PRN ×4 (04:08→20:31)
[2017-10-05] MEDS: LANSOPRAZOLE 30 MG TAB.RAP.DR PO SCH (05:30)
[2017-10-05] MEDS: INSULIN LISPRO 100 UNIT/ML 3 ML VIAL SUBCUT PRN ×3 (08:21→22:02)
[2017-10-05] MEDS: ASPIRIN 81 MG TABLET, CHEWABLE PO SCH (10:16)
[2017-10-05] MEDS: DULOXETINE HCL 30 MG CAPSULE.DR PO SCH (10:16)
[2017-10-05] MEDS: ENOXAPARIN SODIUM INJ 40 MG/0.4 ML DISP.SYRIN SUBCUT SCH (10:17)
[2017-10-05] MEDS: VALSARTAN 80 MG TABLET PO SCH ×2 (10:17→22:01)
[2017-10-05] MEDS: ALLOPURINOL 100 MG TABLET PO SCH (10:18)
[2017-10-05 10:44] LABS: BLOOD UREA NITROGEN 49 mg/dL (7-20); CALCIUM 8.9 mg/dL (8.4-10.2); CHLORIDE 90 mmol/L (98-107); GLUCOSE 220 mg/dL (75-110); POTASSIUM 4.8 mmol/L (3.6-5.0); SODIUM 140.5 mmol/L (137-145)
[2017-10-05 10:55] LABS: ANION GAP 12 (5-19); CARBON DIOXIDE 39 mmol/L (22-30)
--- NOTE | 2017-10-05 20:56 | PDOC PROGRESS REPORT ---
Subjective Progress Note for:: 10/05/17 Subjective:: Patient seen by the bedside, on furosemide infusion, patient is well diuressed.The point of care blood glucose has been elevated, he is supposed to be on long acting insulin, Lantus, but is not on his medication reconciliation, the medication is not up-to-date, the metformin was on old because of the contrast study, this be restarted Reason For Visit: COPD EXACERBATION Physical Exam Vital Signs: Temp Pulse Resp BP Pulse Ox 97.9 F 90 26 H 143/58 H 100 10/05/17 19:46 10/05/17 19:46 10/05/17 19:46 10/05/17 19:46 10/05/17 19:46 Intake & Output 10/04/17 10/05/17 10/06/17 06:59 06:59 06:59 Intake Total 1980 1100 925 Output Total 600 4200 2950 Balance 1380 -3100 -2025 Weight 131.2 kg 130.4 kg 130.4 kg General appearance: PRESENT: no acute distress Eye exam: PRESENT: PERRLA Respiratory exam: PRESENT: clear to auscultation lianne Cardiovascular exam: PRESENT: +S1, +S2 Neurological exam: PRESENT: alert Results Laboratory Results: 10/03/17 05:30 10/05/17 09:59 10/05/17 09:59 Sodium 140.5 Potassium 4.8 Chloride 90 L Carbon Dioxide 39 H Anion Gap 12 BUN 49 H Creatinine 1.22 Est GFR ( Amer) > 60 Est GFR (Non-Af Amer) 57 L Glucose 220 H Calcium 8.9 09/30/17 09/30/17 09/30/17 15:17 15:17 21:00 Creatine Kinase 67 67 CK-MB (CK-2) 1.19 Troponin I 0.025 09/30/17 10/01/17 10/01/17 21:00 03:13 03:13 Creatine Kinase 69 CK-MB (CK-2) 1.22 1.11 Troponin I 0.029 0.017 Impressions: Chest X-Ray 09/29/17 19:14 IMPRESSION: CARDIAC ENLARGEMENT. VASCULAR CONGESTION. Assessment & Plan - Diagnosis (1) COPD exacerbation Is this a current diagnosis for this admission?: Yes (2) Acute on chronic diastolic (congestive) heart failure Is this a current diagnosis for this admission?: Yes (3) Diabetes mellitus type 2 in obese Is this a current diagnosis for this admission?: Yes (4) Essential hypertension Is this a current diagnosis for this admission?: Yes (5) Moraxella catarrhalis pneumonia Is this a current diagnosis for this admission?: Yes (6) Anasarca Is this a current diagnosis for this admission?: Yes (7) Pulmonary hypertension Is this a current diagnosis for this admission?: Yes - Plan Summary Plan Summary: Continue furosemide infusion, continue other treatment
[2017-10-05] MEDS: PRAMIPEXOLE DI-HCL 0.25 MG TABLET PO SCH (22:00)
[2017-10-05] MEDS: ATORVASTATIN CALCIUM 10 MG TABLET PO SCH (22:00)
[2017-10-05] MEDS: MONTELUKAST SODIUM 10 MG TABLET PO SCH (22:00)
[2017-10-05] MEDS: AZITHROMYCIN 250 MG TABLET PO SCH (22:00)
[2017-10-05] MEDS: PREDNISONE 10 MG TABLET PO SCH (22:00)
[2017-10-05] MEDS: HYDROCODONE/ACETAMINOPHEN 10-325 MG TABLET PO PRN (22:02)
[2017-10-06] MEDS: LANSOPRAZOLE 30 MG TAB.RAP.DR PO SCH (05:29)
[2017-10-06] MEDS: HYDROCODONE/ACETAMINOPHEN 10-325 MG TABLET PO PRN ×2 (07:04→17:52)
[2017-10-06] MEDS: IPRATROPIUM/ALBUTEROL 0.5-2.5 MG/3 ML AMPUL NEB PRN (08:50)
[2017-10-06] MEDS: VALSARTAN 80 MG TABLET PO SCH ×2 (10:25→21:17)
[2017-10-06] MEDS: ALLOPURINOL 100 MG TABLET PO SCH (10:26)
[2017-10-06] MEDS: DULOXETINE HCL 30 MG CAPSULE.DR PO SCH (10:26)
[2017-10-06] MEDS: ENOXAPARIN SODIUM INJ 40 MG/0.4 ML DISP.SYRIN SUBCUT SCH (10:26)
[2017-10-06] MEDS: ASPIRIN 81 MG TABLET, CHEWABLE PO SCH (10:26)
[2017-10-06] MEDS: INSULIN LISPRO 100 UNIT/ML 3 ML VIAL SUBCUT PRN ×4 (10:35→23:23)
--- NOTE | 2017-10-06 15:49 | PDOC PROGRESS REPORT ---
Subjective Progress Note for:: 10/06/17 Subjective:: Patient was seen by the bedside, he has fluid retaining conditions including chronic diastolic heart failure, pulmonary hypertension, he was treated with furosemide infusion for the last 2-3 days he diuresed extremely well presently on negative fluid balance. The furosemide infusion will be discontinued this will be transitioned to p.o. furosemide. He probably could benefit from a member of the SGLT-1 inhibitors but it is nonformulary in this hospital, the POC glucose has been very high he will be started on Lantus, he normally takes Lantus at home, will discontinue prednisone which also is a contributing factor in the hyperglycemia Reason For Visit: COPD EXACERBATION Physical Exam Vital Signs: Temp Pulse Resp BP Pulse Ox 97.9 F 38 L 18 133/68 H 99 10/06/17 15:19 10/06/17 15:19 10/06/17 15:19 10/06/17 15:19 10/06/17 15:19 Intake & Output 10/05/17 10/06/17 10/07/17 06:59 06:59 06:59 Intake Total 1100 1288 237 Output Total 4200 4500 1800 Balance -3104 -3212 -1563 Weight 130.4 kg 126.7 kg General appearance: PRESENT: no acute distress Eye exam: PRESENT: PERRLA Respiratory exam: PRESENT: clear to auscultation lianne Cardiovascular exam: PRESENT: +S1, +S2 Neurological exam: PRESENT: alert Results Laboratory Results: 10/03/17 05:30 10/05/17 09:59 09/30/17 09/30/17 09/30/17 15:17 15:17 21:00 Creatine Kinase 67 67 CK-MB (CK-2) 1.19 Troponin I 0.025 09/30/17 10/01/17 10/01/17 21:00 03:13 03:13 Creatine Kinase 69 CK-MB (CK-2) 1.22 1.11 Troponin I 0.029 0.017 Impressions: Chest X-Ray 09/29/17 19:14 IMPRESSION: CARDIAC ENLARGEMENT. VASCULAR CONGESTION. Assessment & Plan - Diagnosis (1) COPD exacerbation Is this a current diagnosis for this admission?: Yes (2) Acute on chronic diastolic (congestive) heart failure Is this a current diagnosis for this admission?: Yes (3) Diabetes mellitus type 2 in obese Is this a current diagnosis for this admission?: Yes (4) Essential hypertension Is this a current diagnosis for this admission?: Yes (5) Moraxella catarrhalis pneumonia Is this a current diagnosis for this admission?: Yes (6) Anasarca Is this a current diagnosis for this admission?: Yes (7) Pulmonary hypertension Is this a current diagnosis for this admission?: Yes - Plan Summary Plan Summary: Discontinue Lasix infusion, start p.o. furosemide
[2017-10-06] MEDS ORDERED: FUROSEMIDE 40 MG TABLET PO ONE (16:00)
[2017-10-06 16:58] LABS: ABSOLUTE EOSINOPHILS # (AUTO) 0.3 10^3/uL (0.0-0.6); ABSOLUTE LYMPHOCYTES (AUTO) 1.4 10^3/uL (0.5-4.7); ABSOLUTE NEUT (AUTO) 6.1 10^3/uL (1.7-8.2); BASOPHILS % (AUTO) 0.5 % (0-2); EOSINOPHILS % (AUTO) 3.3 % (0-6); HEMATOCRIT 30.2 % (37.9-51.0); HEMOGLOBIN 9.5 g/dL (13.5-17.0); LYMPHOCYTES % (AUTO) 16.1 % (13-45); MEAN CORPUSCULAR HEMOGLOBIN 23.9 pg (27.0-33.4); MEAN CORPUSCULAR HGB CONC 31.4 g/dL (32.0-36.0); MEAN CORPUSCULAR VOLUME 76 fl (80-97); PLATELET COUNT 381 10^3/uL (150-450); RED BLOOD COUNT 3.97 10^6/uL (4.35-5.55); RED CELL DISTRIBUTION WIDTH 18.6 % (11.5-14.0); SEGMENTED NEUTROPHILS % (AUTO) 69.1 % (42-78); TOTAL CELLS COUNTED % (AUTO) 100 %; WHITE BLOOD COUNT 8.8 10^3/uL (4.0-10.5)
[2017-10-06 17:15] LABS: ALANINE AMINOTRANSFERASE 24 U/L (21-72); ALBUMIN 3.3 g/dL (3.5-5.0); ALKALINE PHOSPHATASE 61 U/L (38-126); ASPARTATE AMINO TRANSFERASE 16 U/L (17-59); BILIRUBIN,DIRECT 0.2 mg/dL (0.0-0.4); BILIRUBIN,TOTAL 0.2 mg/dL (0.2-1.3); BLOOD UREA NITROGEN 48 mg/dL (7-20); CALCIUM 8.8 mg/dL (8.4-10.2); CHLORIDE 88 mmol/L (98-107); GLUCOSE 223 mg/dL (75-110); POTASSIUM 4.6 mmol/L (3.6-5.0); SODIUM 139.4 mmol/L (137-145); TOTAL PROTEIN 5.7 g/dL (6.3-8.2)
[2017-10-06 17:23] LABS: ANION GAP 8 (5-19)
[2017-10-06] MEDS: METFORMIN HCL 500 MG TABLET PO SCH (17:23)
[2017-10-06 17:24] LABS: CARBON DIOXIDE 43 mmol/L (22-30)
[2017-10-06] MEDS ORDERED: INSULIN GLARGINE,HUM.REC.ANLOG 300 UNIT/3 ML INSULN.PEN SUBCUT SCH (18:00)
[2017-10-06] MEDS: ACETAMINOPHEN 325 MG TABLET PO PRN (19:44)
[2017-10-06] MEDS: MONTELUKAST SODIUM 10 MG TABLET PO SCH (21:16)
[2017-10-06] MEDS: AZITHROMYCIN 250 MG TABLET PO SCH (21:17)
[2017-10-06] MEDS: PRAMIPEXOLE DI-HCL 0.25 MG TABLET PO SCH (21:17)
[2017-10-06] MEDS: FUROSEMIDE 40 MG TABLET PO SCH (21:18)
[2017-10-06] MEDS: ATORVASTATIN CALCIUM 10 MG TABLET PO SCH (21:18)
[2017-10-07] MEDS: HYDROCODONE/ACETAMINOPHEN 10-325 MG TABLET PO PRN ×2 (00:54→09:10)
[2017-10-07] MEDS: ACETAMINOPHEN 325 MG TABLET PO PRN (05:33)
[2017-10-07] MEDS: LANSOPRAZOLE 30 MG TAB.RAP.DR PO SCH (05:34)
[2017-10-07] MEDS: FUROSEMIDE 40 MG TABLET PO SCH ×2 (05:34→13:49)
[2017-10-07 06:13] LABS: ABSOLUTE EOSINOPHILS # (AUTO) 0.4 10^3/uL (0.0-0.6); ABSOLUTE MONOCYTES (AUTO) 0.8 10^3/uL (0.1-1.4); ABSOLUTE NEUT (AUTO) 5.7 10^3/uL (1.7-8.2); BASOPHILS % (AUTO) 0.4 % (0-2); EOSINOPHILS % (AUTO) 4.7 % (0-6); HEMATOCRIT 31.7 % (37.9-51.0); HEMOGLOBIN 10.1 g/dL (13.5-17.0); LYMPHOCYTES % (AUTO) 22.5 % (13-45); MEAN CORPUSCULAR HEMOGLOBIN 24.2 pg (27.0-33.4); MEAN CORPUSCULAR VOLUME 76 fl (80-97); MONOCYTES % (AUTO) 9.2 % (3-13); PLATELET COUNT 373 10^3/uL (150-450); RED BLOOD COUNT 4.18 10^6/uL (4.35-5.55); RED CELL DISTRIBUTION WIDTH 18.7 % (11.5-14.0); SEGMENTED NEUTROPHILS % (AUTO) 63.2 % (42-78); TOTAL CELLS COUNTED % (AUTO) 100 %; WHITE BLOOD COUNT 9.1 10^3/uL (4.0-10.5)
[2017-10-07 06:39] LABS: ALANINE AMINOTRANSFERASE 27 U/L (21-72); ALBUMIN 3.4 g/dL (3.5-5.0); ALKALINE PHOSPHATASE 67 U/L (38-126); ASPARTATE AMINO TRANSFERASE 17 U/L (17-59); BILIRUBIN,DIRECT 0.3 mg/dL (0.0-0.4); BILIRUBIN,TOTAL 0.3 mg/dL (0.2-1.3); BLOOD UREA NITROGEN 48 mg/dL (7-20); CALCIUM 8.6 mg/dL (8.4-10.2); CHLORIDE 90 mmol/L (98-107); GLUCOSE 138 mg/dL (75-110); POTASSIUM 4.4 mmol/L (3.6-5.0); SODIUM 141.6 mmol/L (137-145); TOTAL PROTEIN 5.8 g/dL (6.3-8.2)
[2017-10-07 06:46] LABS: ANION GAP 13 (5-19)
[2017-10-07 06:56] LABS: CARBON DIOXIDE 39 mmol/L (22-30)
[2017-10-07] MEDS: VALSARTAN 80 MG TABLET PO SCH (09:09)
[2017-10-07] MEDS: INSULIN LISPRO 100 UNIT/ML 3 ML VIAL SUBCUT PRN ×2 (09:09→12:13)
[2017-10-07] MEDS: ENOXAPARIN SODIUM INJ 40 MG/0.4 ML DISP.SYRIN SUBCUT SCH (09:09)
[2017-10-07] MEDS: ALLOPURINOL 100 MG TABLET PO SCH (09:10)
[2017-10-07] MEDS: METFORMIN HCL 500 MG TABLET PO SCH (09:10)
[2017-10-07] MEDS: DULOXETINE HCL 30 MG CAPSULE.DR PO SCH (09:10)
[2017-10-07] MEDS: ASPIRIN 81 MG TABLET, CHEWABLE PO SCH (09:11)
[2017-10-07 13:38] VITALS: BP 165/89
--- NOTE | 2017-10-07 16:11 | PDOC DISCHARGE SUMMARY ---
General - Admit/Disc Date/PCP Admission Date/Primary Care Provider: 09/29/17 21:32 CARRILLO GARCIA MD Discharge Date: 10/07/17 - Discharge Diagnosis (1) COPD exacerbation Is this a current diagnosis for this admission?: Yes (2) Acute on chronic diastolic (congestive) heart failure Is this a current diagnosis for this admission?: Yes (3) Diabetes mellitus type 2 in obese Is this a current diagnosis for this admission?: Yes (4) Essential hypertension Is this a current diagnosis for this admission?: Yes (5) Moraxella catarrhalis pneumonia Is this a current diagnosis for this admission?: Yes (6) Anasarca Is this a current diagnosis for this admission?: Yes (7) Pulmonary hypertension Is this a current diagnosis for this admission?: Yes - Additional Information Resuscitation Status: Full Code Discharge Diet: Cardiac, Diabetic Discharge Activity: Activity As Tolerated, Balance Activity w/Rest, Weigh Daily Prescriptions: Empagliflozin [Jardiance] 25 mg PO DAILY #90 tablet Furosemide [Lasix 40 mg Tablet] 40 mg PO Q8 #90 tablet Insulin Glargine,Hum.rec.anlog [Lantus Insulin 100 Unit/mL] 20 unit SUBCUT QPM # 5 insuln.pen Ramipril [Altace 5 mg Capsule] 5 mg PO DAILY #30 capsule Home Medications: Allopurinol [Zyloprim 100 mg Tablet] 100 mg PO DAILY 09/30/17 Aspirin [Aspirin 81 mg Chewable Tablet] 81 mg PO DAILY 09/30/17 Duloxetine HCl [Cymbalta] 60 mg PO DAILY 09/30/17 Hydrocodone/Acetaminophen [Veguita 10-325 mg Tablet] 1 tab PO Q8HP PRN 09/30/17 Metformin HCl [Glucophage] 500 mg PO BID 09/30/17 Metoprolol Succinate [Toprol Xl 25 mg Tab.sr] 25 mg PO DAILY 09/30/17 Montelukast Sodium [Singulair 10 mg Tablet] 10 mg PO QHS 09/30/17 Pramipexole Di-HCl [Mirapex] 0.125 mg PO QHS 09/30/17 Pravastatin Sodium [Pravachol] 20 mg PO DAILY 09/30/17 Empagliflozin [Jardiance] 25 mg PO DAILY #90 tablet 10/07/17 Furosemide [Lasix 40 mg Tablet] 40 mg PO Q8 #90 tablet 10/07/17 Insulin Glargine,Hum.rec.anlog [Lantus Insulin 100 Unit/mL] 20 unit SUBCUT QPM # 5 insuln.pen 10/07/17 Ramipril [Altace 5 mg Capsule] 5 mg PO DAILY #30 capsule 10/07/17 History of Present Illness History of Present Illness: Earnest PIMENTEL is a 77 year old male,Presented to the emergency room for evaluation of shortness of breath, respiratory distress, he was diagnosed with acute COPD exacerbation with acute on chronic diastolic heart failure, he was admitted for management Hospital Course Hospital Course: He was admitted for the management of acute COPD exacerbation, acute on chronic diastolic heart failure. Patient was treated with intravenous Solu-Medrol, antibiotic ultimately this was transitioned to p.o. prednisone. Patient had tremendous fluid retention felt to be due to the combination of acute diastolic heart failure, severe pulmonary hypertension, the anasarca was treated with Lasix infusion. Patient diuresed efficiently and effectively much improved.He also add Moraxella catarrhalis and Streptococcus pneumonia pneumonia both organisms sensitive to azithromycin Physical Exam Vital Signs: Temp Pulse Resp BP Pulse Ox 98.1 F 95 16 165/89 H 99 10/07/17 13:35 10/07/17 13:35 10/07/17 13:35 10/07/17 13:35 10/07/17 13:35 Intake & Output 10/06/17 10/07/17 10/08/17 06:59 06:59 06:59 Intake Total 1288 920 Output Total 4500 3900 Balance -3212 -2980 Weight 126.7 kg 128.6 kg General appearance: PRESENT: no acute distress Eye exam: PRESENT: PERRLA Respiratory exam: PRESENT: clear to auscultation lianne Cardiovascular exam: PRESENT: +S1, +S2 GI/Abdominal exam: PRESENT: soft Neurological exam: PRESENT: alert, CN II-XII grossly intact Results Laboratory Results: 10/07/17 05:40 10/07/17 05:40 10/06/17 10/06/17 10/07/17 16:36 16:36 05:40 WBC 8.8 9.1 RBC 3.97 L 4.18 L Hgb 9.5 L 10.1 L Hct 30.2 L 31.7 L MCV 76 L 76 L MCH 23.9 L 24.2 L MCHC 31.4 L 32.0 RDW 18.6 H 18.7 H Plt Count 381 373 Seg Neutrophils % 69.1 63.2 Lymphocytes % 16.1 22.5 Monocytes % 11.0 9.2 Eosinophils % 3.3 4.7 Basophils % 0.5 0.4 Absolute Neutrophils 6.1 5.7 Absolute Lymphocytes 1.4 2.0 Absolute Monocytes 1.0 0.8 Absolute Eosinophils 0.3 0.4 Absolute Basophils 0.0 0.0 Sodium 139.4 Potassium 4.6 Chloride 88 L Carbon Dioxide 43 H* Anion Gap 8 BUN 48 H Creatinine 1.40 H Est GFR ( Amer) 59 L Est GFR (Non-Af Amer) 49 L Glucose 223 H Calcium 8.8 Total Bilirubin 0.2 AST 16 L ALT 24 Alkaline Phosphatase 61 Total Protein 5.7 L Albumin 3.3 L 10/07/17 05:40 WBC RBC Hgb Hct MCV MCH MCHC RDW Plt Count Seg Neutrophils % Lymphocytes % Monocytes % Eosinophils % Basophils % Absolute Neutrophils Absolute Lymphocytes Absolute Monocytes Absolute Eosinophils Absolute Basophils Sodium 141.6 Potassium 4.4 Chloride 90 L Carbon Dioxide 39 H Anion Gap 13 BUN 48 H Creatinine 1.37 H Est GFR ( Amer) > 60 Est GFR (Non-Af Amer) 50 L Glucose 138 H Calcium 8.6 Total Bilirubin 0.3 AST 17 ALT 27 Alkaline Phosphatase 67 Total Protein 5.8 L Albumin 3.4 L 09/30/17 09/30/17 09/30/17 15:17 15:17 21:00 Creatine Kinase 67 67 CK-MB (CK-2) 1.19 Troponin I 0.025 09/30/17 10/01/17 10/01/17 21:00 03:13 03:13 Creatine Kinase 69 CK-MB (CK-2) 1.22 1.11 Troponin I 0.029 0.017 Impressions: Chest X-Ray 09/29/17 19:14 IMPRESSION: CARDIAC ENLARGEMENT. VASCULAR CONGESTION. Qualifiers - * PATIENT BEING DISCHARGED WITH ANY OF THE FOLLOWING DIAGNOSIS: No
== END 2017-10-07 14:11 | disposition home or self-care (01) | DRG 291 ==
LOC: ER 18:24 → EH 21:32 → 3S 09-30 00:25
PROVIDERS: ADMIT Internal Medicine; ATTEND Internal Medicine
PROC: 5A09557 Assistance with Respiratory Ventilation, Greater than 96 Consecutive Hours, Continuous Positive Airway Pressure (ICD-10-PCS; principal; 2017-09-30)
DX: I11.0 Hypertensive heart disease with heart failure (principal); J16.8 Pneumonia due to other specified infectious organisms; J13 Pneumonia due to Streptococcus pneumoniae; J44.1 Chronic obstructive pulmonary disease with (acute) exacerbation; J44.0 Chronic obstructive pulmonary disease with (acute) lower respiratory infection; E87.2 Acidosis; I50.33 Acute on chronic diastolic (congestive) heart failure; E66.9 Obesity, unspecified; I27.20 Pulmonary hypertension, unspecified; I48.2 Chronic atrial fibrillation; F17.210 Nicotine dependence, cigarettes, uncomplicated; I25.10 Atherosclerotic heart disease of native coronary artery without angina pectoris; K21.9 Gastro-esophageal reflux disease without esophagitis; E11.65 Type 2 diabetes mellitus with hyperglycemia; F41.9 Anxiety disorder, unspecified; F32.9 Major depressive disorder, single episode, unspecified; Z95.1 Presence of aortocoronary bypass graft; I25.2 Old myocardial infarction; Z79.82 Long term (current) use of aspirin; Z79.4 Long term (current) use of insulin; Z88.1 Allergy status to other antibiotic agents; Z99.81 Dependence on supplemental oxygen
CPT/HCPCS: 36415; 36600; 71046; 71250; 80048; 80053; 81001; 82550; 82553; 82803; 82962; 83880; 84484; 85025; 87040; 87070; 87077; 87186; 87205; 94640; 94660; 96374; 99285; J1650; J1815; J1940; J2920; J3490; J7050; J7512; J7620

== ENCOUNTER 2017-10-25 17:29 | Inpatient (IN) | payer MEDICARE, OTHER ==
[2017-10-25] MEDS ORDERED: FUROSEMIDE INJ/PF 20 MG/2 ML SDV IV ONE (17:37)
[2017-10-25] MEDS ORDERED: IPRATROPIUM/ALBUTEROL 0.5-2.5 MG/3 ML AMPUL NEB ONE (17:38)
--- NOTE | 2017-10-25 17:41 | ER Document Report ---
ED Respiratory Problem - General Stated Complaint: SHORTNESS OF BREATH Notes: 77 years old male with a history of COPD brought in by the EMS due to increasing shortness of breath for the last few days. Coughing dry cough. No fever chills. Swelling of lower extremity. I have greeted and performed a rapid initial assessment of this patient. A comprehensive ED assessment and evaluation of the patient, analysis of test results and completion of the medical decision making process will be conducted by additional ED providers. TRAVEL OUTSIDE OF THE [place] IN LAST 30 DAYS: No - Related Data Allergies/Adverse Reactions: quinine [Quinine] Allergy (Verified 10/25/17 19:08) Past Medical History - Social History Smoking Status: Unknown if Ever Smoked Cigarette use (# per day): No Chew tobacco use (# tins/day): No Smoking Education Provided: No Frequency of alcohol use: Rare Drug Abuse: None Family History: Reviewed & Not Pertinent - Past Medical History Cardiac Medical History: Reports: Hx Atrial Fibrillation, Hx Coronary Artery Disease, Hx Heart Attack, Hx Hypercholesterolemia, Hx Hypertension Denies: Hx Congestive Heart Failure, Hx DVT, Hx Pulmonary Embolism Pulmonary Medical History: Reports: Hx Bronchitis, Hx COPD Neurological Medical History: Reports: Hx Cerebrovascular Accident Endocrine Medical History: Reports: Hx Diabetes Mellitus Type 2 Renal/ Medical History: Denies: Hx Peritoneal Dialysis GI Medical History: Reports: Hx Gastroesophageal Reflux Disease Psychiatric Medical History: Reports: Hx Anxiety, Hx Depression Past Surgical History: Reports: Hx Cardiac Catheterization - stent, Hx Coronary Stent, Hx Kidney (Renal Surgery), Hx Orthopedic Surgery - neck - Immunizations Immunizations up to date: Yes Hx Diphtheria, Pertussis, Tetanus Vaccination: Yes Hx Pneumococcal Vaccination: 02/26/12 Physical Exam - Vital signs Vitals: Temp Pulse Resp BP Pulse Ox 98.2 F 70 32 H 164/105 H 100 10/25/17 17:37 10/25/17 17:37 10/25/17 17:37 10/25/17 17:37 10/25/17 17:37 Course - Vital Signs Vital signs: Temp Pulse Resp BP Pulse Ox 98.2 F 70 23 H 164/93 H 100 10/25/17 17:37 10/25/17 17:37 10/25/17 19:09 10/25/17 19:09 10/25/17 19:09 - Laboratory Result Diagrams: 10/25/17 17:47 10/25/17 17:47 Laboratory results interpreted by me: 10/25/17 10/25/17 10/25/17 17:47 17:47 17:47 RBC 3.88 L Hgb 9.0 L Hct 29.0 L MCV 75 L MCH 23.3 L MCHC 31.1 L RDW 18.7 H Lymphocytes % 12.0 L Carbon Dioxide 33 H Glucose 163 H ALT 20 L NT-Pro-B Natriuret Pep 1520 H Urine Protein Urine Blood Ur Leukocyte Esterase 10/25/17 18:49 RBC Hgb Hct MCV MCH MCHC RDW Lymphocytes % Carbon Dioxide Glucose ALT NT-Pro-B Natriuret Pep Urine Protein 100 H Urine Blood SMALL H Ur Leukocyte Esterase SMALL H Discharge - Discharge Referrals: CARRILLO GARCIA MD [Primary Care Provider] - Follow up as needed
[2017-10-25 17:59] LABS: ABSOLUTE EOSINOPHILS # (AUTO) 0.2 10^3/uL (0.0-0.6); ABSOLUTE LYMPHOCYTES (AUTO) 0.8 10^3/uL (0.5-4.7); ABSOLUTE MONOCYTES (AUTO) 0.6 10^3/uL (0.1-1.4); BASOPHILS % (AUTO) 0.6 % (0-2); EOSINOPHILS % (AUTO) 3.2 % (0-6); MEAN CORPUSCULAR HEMOGLOBIN 23.3 pg (27.0-33.4); MEAN CORPUSCULAR HGB CONC 31.1 g/dL (32.0-36.0); MEAN CORPUSCULAR VOLUME 75 fl (80-97); MONOCYTES % (AUTO) 8.4 % (3-13); PLATELET COUNT 298 10^3/uL (150-450); RED BLOOD COUNT 3.88 10^6/uL (4.35-5.55); RED CELL DISTRIBUTION WIDTH 18.7 % (11.5-14.0); SEGMENTED NEUTROPHILS % (AUTO) 75.8 % (42-78); TOTAL CELLS COUNTED % (AUTO) 100 %; WHITE BLOOD COUNT 6.6 10^3/uL (4.0-10.5)
--- NOTE | 2017-10-25 18:03 | EKG REPORT ---
SEVERITY:- ABNORMAL ECG - SINUS RHYTHM FIRST DEGREE AV BLOCK RBBB AND LAFB : Confirmed by: Ana Tinajero 25-Oct-2017 18:03:35
[2017-10-25 18:13] LABS: ALANINE AMINOTRANSFERASE 20 U/L (21-72); ALBUMIN 3.7 g/dL (3.5-5.0); ALKALINE PHOSPHATASE 73 U/L (38-126); ANION GAP 8 (5-19); ASPARTATE AMINO TRANSFERASE 25 U/L (17-59); BILIRUBIN,DIRECT 0.2 mg/dL (0.0-0.4); BILIRUBIN,TOTAL 0.2 mg/dL (0.2-1.3); BLOOD UREA NITROGEN 18 mg/dL (7-20); CARBON DIOXIDE 33 mmol/L (22-30); CHLORIDE 100 mmol/L (98-107); GLUCOSE 163 mg/dL (75-110); POTASSIUM 4.8 mmol/L (3.6-5.0); SODIUM 140.5 mmol/L (137-145); TOTAL PROTEIN 6.5 g/dL (6.3-8.2)
[2017-10-25 18:25] LABS: CREATINE KINASE MB 1.51 ng/mL (<4.55); TROPONIN I 0.019 ng/mL
--- NOTE | 2017-10-25 19:15 | RADIOLOGY REPORT (SQ) ---
EXAM DESCRIPTION: CHEST SINGLE VIEW COMPLETED DATE/TIME: 10/25/2017 7:05 pm REASON FOR STUDY: sob COMPARISON: None. EXAM PARAMETERS: NUMBER OF VIEWS: One view. TECHNIQUE: Single frontal radiographic view of the chest acquired. RADIATION DOSE: NA LIMITATIONS: None. FINDINGS: LUNGS AND PLEURA: No pneumothorax. Patchy areas of airspace disease-subsegmental atelecta sis are present in both lung bases. No significant pleural effusion. MEDIASTINUM AND HILAR STRUCTURES: Stable. HEART AND VASCULAR STRUCTURES: Similar cardiomegaly. BONES: No acute findings. HARDWARE: None in the chest. OTHER: No other significant finding. IMPRESSION: Patchy areas of airspace disease-subsegmental atelectasis are present in both lung bases . No significant pleural effusion. TECHNICAL DOCUMENTATION: JOB ID: [id number] [employer]- All Rights Reserved Reading location - IP/workstation name: [email or web address]
[2017-10-25 19:26] LABS: APPEARANCE,URINE SLIGHTLY-CLOUDY; BILIRUBIN,URINE NEGATIVE (NEGATIVE); COLOR,URINE YELLOW; GLUCOSE, URINE NEGATIVE (NEGATIVE); KETONES,URINE NEGATIVE (NEGATIVE); LEUKOCYTE ESTERASE,URINE SMALL (NEGATIVE); NITRITE,URINE NEGATIVE (NEGATIVE); PROTEIN,URINE 100 mg/dL (NEGATIVE); URINE SPECIFIC GRAVITY 1.009; UROBILINOGEN,URINE NEGATIVE mg/dL (<2.0)
[2017-10-25] MEDS: MAGNESIUM SULFATE/D5W 1 GM/100 ML RTUPB IV SCH ×2 (20:19→21:11)
[2017-10-25 21:13] LABS: ARTERIAL BLOOD BASE EXCESS 3.8 mmol/L; ARTERIAL BLOOD HCO3 29.9 mmol/L (20-26); ARTERIAL BLOOD PCO2 53.3 mmHg (35-45); ARTERIAL BLOOD PH 7.37 (7.35-7.45); ARTERIAL BLOOD PO2 96.3 mmHg (80-100); ARTERIAL BLOOD TOTAL CO2 31.5 mmol/L (23-27)
[2017-10-25 21:14] LABS: ARTERIAL BLOOD FIO2 32%
[2017-10-25] MEDS ORDERED: ALBUTEROL SULFATE 0.083% NEB 2.5 MG/3 ML AMPUL NEB ONE (21:53)
--- NOTE | 2017-10-25 23:53 | ER Document Report ---
ED General - General Chief Complaint: Shortness Of Breath Stated Complaint: SHORTNESS OF BREATH Time Seen by Provider: 10/25/17 17:41 TRAVEL OUTSIDE OF THE [place] IN LAST 30 DAYS: No - HPI Patient complains to provider of: Shortness of breath Notes: Patient coming in with a history of COPD CHF recent admission to the hospital for COPD exacerbation that has a history of noncompliance to his medication regimen also continues to smoke for progressive shortness of breath ongoing for the last 2-3 days. States no change in sputum but does have a sputum production. Patient does admit that since his last discharge he has been compliant with his medications. Patient denies fevers chills patient denies any chest pain denies any abdominal pain - Related Data Allergies/Adverse Reactions: quinine [Quinine] Allergy (Verified 10/25/17 19:08) Past Medical History - Social History Smoking Status: Unknown if Ever Smoked Cigarette use (# per day): No Chew tobacco use (# tins/day): No Frequency of alcohol use: Rare Drug Abuse: None Family History: Reviewed & Not Pertinent Patient has suicidal ideation: No Patient has homicidal ideation: No - Past Medical History Cardiac Medical History: Reports: Hx Atrial Fibrillation, Hx Coronary Artery Disease, Hx Heart Attack, Hx Hypercholesterolemia, Hx Hypertension Denies: Hx Congestive Heart Failure, Hx DVT, Hx Pulmonary Embolism Pulmonary Medical History: Reports: Hx Bronchitis, Hx COPD Neurological Medical History: Reports: Hx Cerebrovascular Accident Endocrine Medical History: Reports: Hx Diabetes Mellitus Type 2 Renal/ Medical History: Denies: Hx Peritoneal Dialysis GI Medical History: Reports: Hx Gastroesophageal Reflux Disease Psychiatric Medical History: Reports: Hx Anxiety, Hx Depression Past Surgical History: Reports: Hx Cardiac Catheterization - stent, Hx Coronary Stent, Hx Kidney (Renal Surgery), Hx Orthopedic Surgery - neck - Immunizations Immunizations up to date: Yes Hx Diphtheria, Pertussis, Tetanus Vaccination: Yes Hx Pneumococcal Vaccination: 02/26/12 Review of Systems - Review of Systems Constitutional: No symptoms reported EENT: No symptoms reported Cardiovascular: No symptoms reported Respiratory: Short of breath Gastrointestinal: No symptoms reported Genitourinary: No symptoms reported Male Genitourinary: No symptoms reported Musculoskeletal: No symptoms reported Skin: No symptoms reported Hematologic/Lymphatic: No symptoms reported Neurological/Psychological: No symptoms reported -: Yes All other systems reviewed and negative Physical Exam - Vital signs Vitals: Temp Pulse Resp BP Pulse Ox 98.2 F 70 32 H 164/105 H 100 10/25/17 17:37 10/25/17 17:37 10/25/17 17:37 10/25/17 17:37 10/25/17 17:37 Interpretation: Tachypneic - General General appearance: Appears well, Alert - HEENT Head: Normocephalic, Atraumatic Eyes: Normal Pupils: PERRL - Respiratory Respiratory status: Tachypnea Chest status: Nontender Breath sounds: Rhonchi Chest palpation: Normal - Cardiovascular Rhythm: Regular Heart sounds: Normal auscultation Murmur: No - Abdominal Inspection: Normal Distension: No distension Bowel sounds: Normal Tenderness: Nontender Organomegaly: No organomegaly - Back Back: Normal, Nontender - Extremities General upper extremity: Normal inspection, Nontender, Normal color, Normal ROM , Normal temperature General lower extremity: Normal inspection, Nontender, Normal color, Normal ROM , Normal temperature, Normal weight bearing. No: Jennifer's sign - Neurological Neuro grossly intact: Yes Cognition: Normal Orientation: AAOx4 Jodie Coma Scale Eye Opening: Spontaneous Jodie Coma Scale Verbal: Oriented Jodie Coma Scale Motor: Obeys Commands [place] Coma Scale Total: 15 Speech: Normal Motor strength normal: LUE, RUE, LLE, RLE Sensory: Normal - Psychological Associated symptoms: Normal affect, Normal mood - Skin Skin Temperature: Warm Skin Moisture: Dry Skin Color: Normal Course - Re-evaluation Re-evalutation: 10/26/17 03:24 Patient laboratory studies ABG chest x-ray did not show any signs of significant pathology. Patient upon multiple evaluations would have a normal resting respiratory rate however, emergency room with increased to 30s-40s. She did discuss with his PCP and with the patient's members looking otherwise normal myself and the PCP did agree to discharge patient did ask nursing staff to walk the patient however upon ambulating patient became significantly tachypneic and hypoxic along with diaphoretic. Patient continued to have no pain however symptoms not improved by having patient rested for a decision based patient on BiPAP. They recontact PCP and now is changed does agree with admission to the hospital for further evaluation. - Vital Signs Vital signs: Temp Pulse Resp BP Pulse Ox 98.7 F 72 25 H 157/85 H 100 10/26/17 02:25 10/26/17 02:25 10/26/17 02:25 10/26/17 02:25 10/26/17 02:25 - Laboratory Result Diagrams: 10/25/17 17:47 10/25/17 17:47 Laboratory results interpreted by me: 10/25/17 10/25/17 10/25/17 17:47 17:47 17:47 RBC 3.88 L Hgb 9.0 L Hct 29.0 L MCV 75 L MCH 23.3 L MCHC 31.1 L RDW 18.7 H Lymphocytes % 12.0 L Carbonic Acid ABG pCO2 ABG HCO3 ABG Total CO2 Carbon Dioxide 33 H Glucose 163 H ALT 20 L NT-Pro-B Natriuret Pep 1520 H Urine Protein Urine Blood Ur Leukocyte Esterase 10/25/17 10/25/17 18:49 20:45 RBC Hgb Hct MCV MCH MCHC RDW Lymphocytes % Carbonic Acid 1.60 H ABG pCO2 53.3 H ABG HCO3 29.9 H ABG Total CO2 31.5 H Carbon Dioxide Glucose ALT NT-Pro-B Natriuret Pep Urine Protein 100 H Urine Blood SMALL H Ur Leukocyte Esterase SMALL H Discharge - Discharge Clinical Impression: COPD exacerbation, Congestive heart disease, Medical non-compliance, Tobacco abuse Condition: Good Disposition: ADMITTED INPATIENT Admitting Provider: Stacy Unit Admitted: HANNA
[2017-10-26] MEDS ORDERED: DEXTROSE 50%-WATER SYRINGE 25 GM/50 ML DOSE IV PRN (03:32)
[2017-10-26] MEDS ORDERED: GLUCAGON,HUMAN RECOMB 1 MG INJ IM PRN (03:32)
[2017-10-26] MEDS ORDERED: DEXTROSE 40% GEL 15 GM TUBE PO PRN (03:32)
[2017-10-26] MEDS ORDERED: DEXTROSE 40% GEL 15 GM TUBE X 2 PO PRN (03:32)
[2017-10-26] MEDS ORDERED: DEXTROSE 50%-WATER SYRINGE 12.5 GM/25 ML DOSE IV PRN (03:32)
[2017-10-26] MEDS ORDERED: NORMAL SALINE 1000 ML 1,000 ML IV PRN (04:14)
[2017-10-26] MEDS ORDERED: HYDROCODONE/ACETAMINOPHEN 10-325 MG TABLET PO PRN (04:23)
[2017-10-26] MEDS: FUROSEMIDE 40 MG TABLET PO SCH ×3 (05:51→21:46)
[2017-10-26] MEDS: METFORMIN HCL 500 MG TABLET PO SCH ×2 (07:55→17:54)
[2017-10-26] MEDS ORDERED: (PENDING PHARMACY ID) (Empagliflozin [Jardiance] 25 MG) PO SCH (08:00)
[2017-10-26] MEDS ORDERED: RAMIPRIL 5 MG CAPSULE PO SCH (08:00)
[2017-10-26] MEDS ORDERED: METOPROLOL SUCCINATE 25 MG TAB.SR.24H PO SCH (08:00)
[2017-10-26] MEDS: METOPROLOL SUCCINATE 25 MG TAB.SR.24H PO SCH (09:52)
[2017-10-26] MEDS: INSULIN GLARGINE,HUM.REC.ANLOG 300 UNIT/3 ML INSULN.PEN SUBCUT SCH (09:52)
[2017-10-26] MEDS: ALLOPURINOL 100 MG TABLET PO SCH (09:53)
[2017-10-26] MEDS: DULOXETINE HCL 30 MG CAPSULE.DR PO SCH (09:53)
[2017-10-26] MEDS: RAMIPRIL 5 MG CAPSULE PO SCH (09:53)
[2017-10-26] MEDS: ASPIRIN 81 MG TABLET, CHEWABLE PO SCH (09:53)
[2017-10-26] MEDS ORDERED: ASPIRIN 81 MG TABLET, CHEWABLE PO SCH (10:00)
[2017-10-26] MEDS: IPRATROPIUM/ALBUTEROL 0.5-2.5 MG/3 ML AMPUL NEB PRN (12:03)
[2017-10-26 13:40] LABS: HEMATOCRIT 29.4 % (37.9-51.0); HEMOGLOBIN 9.1 g/dL (13.5-17.0); MEAN CORPUSCULAR HEMOGLOBIN 23.2 pg (27.0-33.4); MEAN CORPUSCULAR HGB CONC 30.9 g/dL (32.0-36.0); MEAN CORPUSCULAR VOLUME 75 fl (80-97); PLATELET COUNT 315 10^3/uL (150-450); RED BLOOD COUNT 3.92 10^6/uL (4.35-5.55); RED CELL DISTRIBUTION WIDTH 18.7 % (11.5-14.0); WHITE BLOOD COUNT 8.6 10^3/uL (4.0-10.5)
[2017-10-26] MEDS: HYDROCODONE/ACETAMINOPHEN 10-325 MG TABLET PO PRN ×2 (13:43→19:53)
[2017-10-26] MEDS ORDERED: FUROSEMIDE 40 MG TABLET PO SCH (14:00)
[2017-10-26 14:15] LABS: ANION GAP 11 (5-19); BLOOD UREA NITROGEN 18 mg/dL (7-20); CALCIUM 9.2 mg/dL (8.4-10.2); CARBON DIOXIDE 33 mmol/L (22-30); CHLORIDE 97 mmol/L (98-107); GLUCOSE 124 mg/dL (75-110); POTASSIUM 4.6 mmol/L (3.6-5.0); SODIUM 140.7 mmol/L (137-145)
[2017-10-26] MEDS: INSULIN LISPRO 100 UNIT/ML 3 ML VIAL SUBCUT PRN (17:55)
[2017-10-26] MEDS ORDERED: (PENDING PHARMACY ID) (Pravastatin Sodium [Pravachol] 40 MG) PO SCH (20:15)
--- NOTE | 2017-10-26 20:16 | PDOC H&P ---
History of Present Illness Admission Date/PCP: 10/25/17 23:59 CARRILLO GARCIA MD History of Present Illness: Earnest PIMENTEL is a 77 year old maleHe has a history of chronic obstructive pulmonary disease complicated with pulmonary hypertension, chronic diastolic heart failure, a recalcitrant smoker, he came to the emergency room for evaluation of shortness of breath. He was recently admitted in this hospital on discharge when he presented with acute exacerbation of COPD. After he was evaluated in the emergency room, the ED physician called me to discuss his case with me we both agreed that he could be discharged home, he will follow with me in the office the following day for close monitoring and evaluation but on discharge when patient started ambulating he became tachypneic, with a low oxygen saturation and diaphoretic, it was felt that patient at this time needed to be admitted to the hospital for further evaluation. Past Medical History Cardiac Medical History: Reports: Atrial Fibrillation, Coronary Artery Disease, Myocardial Infarction, Hyperlipidema, Hypertension Pulmonary Medical History: Reports: Bronchitis, Chronic Obstructive Pulmonary Disease (COPD) Endocrine Medical History: Reports: Diabetes Mellitus Type 2 GI Medical History: Reports: Gastroesophageal Reflux Disease Psychiatric Medical History: Reports: Depression Past Surgical History Past Surgical History: Reports: Cardiac Catheterization - stent, Coronary Stent , Orthopedic Surgery - neck Social History Smoking Status: Current Every Day Smoker Cigarettes Packs Per Day: 2 Number of Years Smokin Last Time Smoked: 10/23/17 Frequency of Alcohol Use: None Hx Recreational Drug Use: No Drugs: None Hx Prescription Drug Abuse: No - Advance Directive Resuscitation Status: Full Code Family History Family History: Reviewed & Not Pertinent Parental Family History Reviewed: Yes Children Family History Reviewed: Yes Sibling(s) Family History Reviewed.: Yes Medication/Allergy Home Medications: Allopurinol [Zyloprim 100 mg Tablet] 100 mg PO DAILY 09/30/17 Aspirin [Aspirin 81 mg Chewable Tablet] 81 mg PO DAILY 09/30/17 Hydrocodone/Acetaminophen [[place] 10-325 mg Tablet] 1 tab PO Q8HP PRN 09/30/17 Metoprolol Succinate [Toprol Xl 25 mg Tab.sr] 25 mg PO DAILY 09/30/17 Furosemide [Lasix 40 mg Tablet] 40 mg PO Q8 #90 tablet 10/07/17 Ramipril [Altace 5 mg Capsule] 5 mg PO DAILY #30 capsule 10/07/17 Duloxetine HCl [Cymbalta] 60 mg PO DAILY 10/26/17 Insulin Glargine,Hum.rec.anlog [Lantus Insulin 100 Unit/mL] 33 unit SUBCUT QAM 10/26/17 Metformin HCl [Glucophage 500 mg Tablet] 500 mg PO BID 10/26/17 Montelukast Sodium [Singulair 10 mg Tablet] 10 mg PO QHS 10/26/17 Potassium Chloride [Klor-Con 10 Meq Tablet.sa] 10 meq PO DAILY 10/26/17 Pramipexole Di-HCl [Mirapex] 0.125 mg PO QHS 10/26/17 Pravastatin Sodium [Pravachol] 40 mg PO DAILY 10/26/17 Allergies/Adverse Reactions: quinine [Quinine] Allergy (Verified 10/25/17 19:08) Review of Systems Constitutional: ABSENT: chills, fever(s), headache(s), weight gain, weight loss Eyes: ABSENT: visual disturbances Ears: ABSENT: hearing changes Cardiovascular: PRESENT: dyspnea on exertion. ABSENT: chest pain, edema, orthropnea, palpitations Respiratory: PRESENT: dyspnea. ABSENT: cough, hemoptysis Gastrointestinal: ABSENT: abdominal pain, constipation, diarrhea, hematemesis, hematochezia, nausea, vomiting Genitourinary: ABSENT: dysuria, hematuria Musculoskeletal: ABSENT: joint swelling Integumentary: ABSENT: rash, wounds Neurological: ABSENT: abnormal gait, abnormal speech, confusion, dizziness, focal weakness, syncope Psychiatric: ABSENT: anxiety, depression, homidical ideation, suicidal ideation Endocrine: ABSENT: cold intolerance, heat intolerance, menstrual abnormalities, polydipsia, polyuria Hematologic/Lymphatic: ABSENT: easy bleeding, easy bruising, lymphadenopathy Physical Exam Vital Signs: Temp Pulse Resp BP Pulse Ox 97.7 F 66 25 H 165/72 H 100 10/26/17 19:51 10/26/17 19:51 10/26/17 19:51 10/26/17 19:51 10/26/17 19:51 Intake & Output 10/25/17 10/26/17 10/27/17 06:59 06:59 06:59 Intake Total 123 1594 Output Total 100 1350 Balance 23 244 Weight 134.3 kg General appearance: PRESENT: mild distress Head exam: PRESENT: atraumatic, normocephalic Eye exam: PRESENT: PERRLA. ABSENT: scleral icterus Ear exam: PRESENT: normal external ear exam Mouth exam: PRESENT: moist, tongue midline Neck exam: PRESENT: full ROM Respiratory exam: PRESENT: decreased breath sounds Cardiovascular exam: PRESENT: RRR, +S1, +S2 Vascular exam: PRESENT: normal capillary refill GI/Abdominal exam: PRESENT: normal bowel sounds, soft Rectal exam: PRESENT: deferred Neurological exam: PRESENT: alert, awake, oriented to person, oriented to place , oriented to time, oriented to situation, CN II-XII grossly intact Psychiatric exam: PRESENT: appropriate affect, normal mood Skin exam: PRESENT: dry, intact, warm Results Laboratory Results: 10/26/17 13:17 10/26/17 13:17 10/26/17 10/26/17 13:17 13:17 WBC 8.6 RBC 3.92 L Hgb 9.1 L Hct 29.4 L MCV 75 L MCH 23.2 L MCHC 30.9 L RDW 18.7 H Plt Count 315 Sodium 140.7 Potassium 4.6 Chloride 97 L Carbon Dioxide 33 H Anion Gap 11 BUN 18 Creatinine 0.99 Est GFR ( Amer) > 60 Est GFR (Non-Af Amer) > 60 Glucose 124 H Calcium 9.2 Impressions: Chest X-Ray 10/25/17 17:37 IMPRESSION: Patchy areas of airspace disease-subsegmental atelectasis are present in both lung bases. No significant pleural effusion. Assessment & Plan - Diagnosis (1) Acute and chronic respiratory failure Qualifiers: Respiratory failure complication: hypoxia and hypercapnia Qualified Code(s) : J96.21 - Acute and chronic respiratory failure with hypoxia; J96.22 - Acute and chronic respiratory failure with hypercapnia; J96.22 - Acute and chronic respiratory failure with hypercapnia; J96.22 - Acute and chronic respiratory failure with hypercapnia Is this a current diagnosis for this admission?: Yes Plan: Patient is admitted respiration to be supported with noninvasive ventilation to prevent intubation and progression to bernardo acute respiratory failure (2) Tobacco abuse Is this a current diagnosis for this admission?: Yes (3) Acute exacerbation of chronic obstructive pulmonary disease (COPD) Is this a current diagnosis for this admission?: Yes (4) Acute on chronic diastolic (congestive) heart failure Is this a current diagnosis for this admission?: Yes
[2017-10-26] MEDS ORDERED: METFORMIN HCL 500 MG TABLET PO SCH (21:00)
[2017-10-26] MEDS ORDERED: ATORVASTATIN CALCIUM 10 MG TABLET PO ONE (21:30)
[2017-10-26] MEDS ORDERED: DULOXETINE HCL 30 MG CAPSULE.DR PO ONE (21:30)
[2017-10-26] MEDS: PRAMIPEXOLE DI-HCL 0.25 MG TABLET PO SCH (21:44)
[2017-10-26] MEDS: POTASSIUM CHLORIDE 10 MEQ TABLET.SA PO SCH (21:45)
[2017-10-26] MEDS: MONTELUKAST SODIUM 10 MG TABLET PO SCH (21:46)
[2017-10-26] MEDS ORDERED: ATORVASTATIN CALCIUM 10 MG TABLET PO SCH (22:00)
[2017-10-26] MEDS ORDERED: (PENDING PHARMACY ID) (Pramipexole Di-Hcl [Mirapex] 0.125 MG) PO SCH (22:00)
[2017-10-26] MEDS ORDERED: METFORMIN HCL 500 MG TABLET PO ONE (22:00)
[2017-10-27] MEDS: HYDROCODONE/ACETAMINOPHEN 10-325 MG TABLET PO PRN ×2 (04:39→14:54)
[2017-10-27] MEDS: FUROSEMIDE 40 MG TABLET PO SCH ×3 (05:07→21:36)
[2017-10-27 06:14] LABS: ABSOLUTE EOSINOPHILS # (AUTO) 0.3 10^3/uL (0.0-0.6); ABSOLUTE MONOCYTES (AUTO) 0.8 10^3/uL (0.1-1.4); ABSOLUTE NEUT (AUTO) 4.4 10^3/uL (1.7-8.2); BASOPHILS % (AUTO) 0.4 % (0-2); HEMATOCRIT 28.6 % (37.9-51.0); HEMOGLOBIN 8.9 g/dL (13.5-17.0); LYMPHOCYTES % (AUTO) 15.7 % (13-45); MEAN CORPUSCULAR HEMOGLOBIN 23.3 pg (27.0-33.4); MEAN CORPUSCULAR HGB CONC 31.1 g/dL (32.0-36.0); MEAN CORPUSCULAR VOLUME 75 fl (80-97); MONOCYTES % (AUTO) 11.9 % (3-13); PLATELET COUNT 286 10^3/uL (150-450); RED BLOOD COUNT 3.82 10^6/uL (4.35-5.55); RED CELL DISTRIBUTION WIDTH 18.8 % (11.5-14.0); TOTAL CELLS COUNTED % (AUTO) 100 %; WHITE BLOOD COUNT 6.6 10^3/uL (4.0-10.5)
[2017-10-27 06:33] LABS: ANION GAP 10 (5-19); BLOOD UREA NITROGEN 22 mg/dL (7-20); CALCIUM 9.1 mg/dL (8.4-10.2); CARBON DIOXIDE 33 mmol/L (22-30); CHLORIDE 97 mmol/L (98-107); GLUCOSE 94 mg/dL (75-110); POTASSIUM 4.5 mmol/L (3.6-5.0); SODIUM 139.6 mmol/L (137-145)
[2017-10-27] MEDS: METFORMIN HCL 500 MG TABLET PO SCH ×2 (08:36→17:32)
[2017-10-27] MEDS: DULOXETINE HCL 30 MG CAPSULE.DR PO SCH (09:24)
[2017-10-27] MEDS: METOPROLOL SUCCINATE 25 MG TAB.SR.24H PO SCH (09:25)
[2017-10-27] MEDS: ASPIRIN 81 MG TABLET, CHEWABLE PO SCH (09:26)
[2017-10-27] MEDS: RAMIPRIL 5 MG CAPSULE PO SCH (09:27)
[2017-10-27] MEDS: INSULIN GLARGINE,HUM.REC.ANLOG 300 UNIT/3 ML INSULN.PEN SUBCUT SCH (09:27)
[2017-10-27] MEDS: ALLOPURINOL 100 MG TABLET PO SCH (09:27)
[2017-10-27] MEDS: IPRATROPIUM/ALBUTEROL 0.5-2.5 MG/3 ML AMPUL NEB PRN ×2 (10:00→16:37)
[2017-10-27] MEDS ORDERED: DULOXETINE HCL 30 MG CAPSULE.DR PO SCH (10:00)
[2017-10-27] MEDS ORDERED: GLUCAGON,HUMAN RECOMB 1 MG INJ IM PRN (10:30)
[2017-10-27] MEDS ORDERED: DEXTROSE 50%-WATER 25 GM/50 ML DISP.SYRIN IV PRN ×2 (10:30)
[2017-10-27] MEDS ORDERED: DEXTROSE 40% GEL 15 GM TUBE PO PRN ×2 (10:30)
--- NOTE | 2017-10-27 10:49 | PDOC PROGRESS REPORT ---
Subjective Progress Note for:: 10/27/17 Subjective:: 77-year-old man admitted because of the respiratory distress COPD acute exacerbations pneumonia and a chronic diastolic congestive heart failure Is currently doing fair pt is denied any chest pain denied any shortness of the breath Patient's currently on a BiPAP Patient still continues to smoke Reason For Visit: OBSTRUCTIVE CHRONIC BRONCHITIS Physical Exam Vital Signs: Temp Pulse Resp BP Pulse Ox 97.4 F 101 H 16 133/48 H 100 10/27/17 07:31 10/27/17 07:31 10/27/17 07:31 10/27/17 07:31 10/27/17 07:31 Intake & Output 10/26/17 10/27/17 10/28/17 06:59 06:59 06:59 Intake Total 123 2572 Output Total 100 2675 Balance 23 -103 Weight 134.3 kg 133.6 kg General appearance: PRESENT: no acute distress, well-developed, well-nourished Head exam: PRESENT: atraumatic, normocephalic Eye exam: PRESENT: conjunctiva pink, EOMI, PERRLA. ABSENT: scleral icterus Ear exam: PRESENT: normal external ear exam Mouth exam: PRESENT: moist, tongue midline Neck exam: PRESENT: full ROM. ABSENT: carotid bruit, JVD, lymphadenopathy, thyromegaly Respiratory exam: PRESENT: decreased breath sounds Cardiovascular exam: PRESENT: RRR. ABSENT: diastolic murmur, rubs, systolic murmur Pulses: PRESENT: normal dorsalis pedis pul, +2 pedal pulses bilateral Vascular exam: PRESENT: normal capillary refill GI/Abdominal exam: PRESENT: normal bowel sounds, soft. ABSENT: distended, guarding, mass, organolmegaly, rebound, tenderness Rectal exam: PRESENT: deferred Extremities exam: PRESENT: pedal edema Neurological exam: PRESENT: alert, awake, oriented to person, oriented to place , oriented to time, oriented to situation, CN II-XII grossly intact. ABSENT: motor sensory deficit Psychiatric exam: PRESENT: appropriate affect, normal mood. ABSENT: homicidal ideation, suicidal ideation Skin exam: PRESENT: dry, intact, warm. ABSENT: cyanosis, rash Results Laboratory Results: 10/27/17 05:44 10/27/17 05:44 10/26/17 10/26/17 10/27/17 13:17 13:17 05:44 WBC 8.6 6.6 RBC 3.92 L 3.82 L Hgb 9.1 L 8.9 L Hct 29.4 L 28.6 L MCV 75 L 75 L MCH 23.2 L 23.3 L MCHC 30.9 L 31.1 L RDW 18.7 H 18.8 H Plt Count 315 286 Seg Neutrophils % 67.0 Lymphocytes % 15.7 Monocytes % 11.9 Eosinophils % 5.0 Basophils % 0.4 Absolute Neutrophils 4.4 Absolute Lymphocytes 1.0 Absolute Monocytes 0.8 Absolute Eosinophils 0.3 Absolute Basophils 0.0 Sodium 140.7 Potassium 4.6 Chloride 97 L Carbon Dioxide 33 H Anion Gap 11 BUN 18 Creatinine 0.99 Est GFR ( Amer) > 60 Est GFR (Non-Af Amer) > 60 Glucose 124 H Calcium 9.2 10/27/17 05:44 WBC RBC Hgb Hct MCV MCH MCHC RDW Plt Count Seg Neutrophils % Lymphocytes % Monocytes % Eosinophils % Basophils % Absolute Neutrophils Absolute Lymphocytes Absolute Monocytes Absolute Eosinophils Absolute Basophils Sodium 139.6 Potassium 4.5 Chloride 97 L Carbon Dioxide 33 H Anion Gap 10 BUN 22 H Creatinine 1.12 Est GFR ( Amer) > 60 Est GFR (Non-Af Amer) > 60 Glucose 94 Calcium 9.1 Impressions: Chest X-Ray 10/25/17 17:37 IMPRESSION: Patchy areas of airspace disease-subsegmental atelectasis are present in both lung bases. No significant pleural effusion. Assessment & Plan - Time Time Spent with patient: 15-24 minutes Medications reviewed and adjusted accordingly: Yes Anticipated discharge: Other Within: Other - Inpatient Certification Medical Necessity: Need Close Monitoring Due to Risk of Patient Decompensation Post Hospital Care: D/C Material Control Specialist Documentation - Plan Summary Plan Summary: Patient's current diagnosis with the possible pneumonia on a chest x-ray COPD with acute exacerbations Chronic diastolic congestive heart failure Type 2 diabetes mellitus All other comorbidity Start the patient in the IV antibiotic consult the pulmonary The patient and the family on the bedside discussed all the test reports
[2017-10-27] MEDS ORDERED: CEFEPIME 1 GM/D5W RTU 1 GM/50 ML RTUPB IV ONE (11:00)
[2017-10-27] MEDS: ATORVASTATIN CALCIUM 10 MG TABLET PO SCH (11:05)
[2017-10-27] MEDS: ENOXAPARIN SODIUM INJ 40 MG/0.4 ML DISP.SYRIN SUBCUT SCH (11:05)
[2017-10-27] MEDS: MONTELUKAST SODIUM 10 MG TABLET PO SCH (21:37)
[2017-10-27] MEDS: POTASSIUM CHLORIDE 10 MEQ TABLET.SA PO SCH (21:37)
[2017-10-27] MEDS: PRAMIPEXOLE DI-HCL 0.25 MG TABLET PO SCH (21:38)
[2017-10-27] MEDS: CEFEPIME 1 GM/D5W RTU 1 GM/50 ML RTUPB IV SCH (21:39)
[2017-10-28] MEDS: HYDROCODONE/ACETAMINOPHEN 10-325 MG TABLET PO PRN ×2 (00:10→09:42)
[2017-10-28] MEDS: IPRATROPIUM/ALBUTEROL 0.5-2.5 MG/3 ML AMPUL NEB PRN ×3 (01:16→19:43)
[2017-10-28] MEDS: FUROSEMIDE 40 MG TABLET PO SCH ×3 (06:00→21:03)
[2017-10-28 07:11] LABS: ABSOLUTE BASOPHILS # (AUTO) 0.1 10^3/uL (0.0-0.2); ABSOLUTE EOSINOPHILS # (AUTO) 0.3 10^3/uL (0.0-0.6); ABSOLUTE LYMPHOCYTES (AUTO) 1.1 10^3/uL (0.5-4.7); ABSOLUTE MONOCYTES (AUTO) 0.9 10^3/uL (0.1-1.4); ABSOLUTE NEUT (AUTO) 3.8 10^3/uL (1.7-8.2); ABSOLUTE RETICS # 0.052 10^6/uL (0.028-0.122); BASOPHILS % (AUTO) 0.9 % (0-2); EOSINOPHILS % (AUTO) 4.5 % (0-6); HEMATOCRIT 27.7 % (37.9-51.0); HEMOGLOBIN 8.6 g/dL (13.5-17.0); LYMPHOCYTES % (AUTO) 17.9 % (13-45); MEAN CORPUSCULAR VOLUME 74 fl (80-97); MONOCYTES % (AUTO) 14.5 % (3-13); PLATELET COUNT 270 10^3/uL (150-450); RED BLOOD COUNT 3.73 10^6/uL (4.35-5.55); RETICULOCYTE COUNT (AUTO) 1.38 % (0.66-2.85); SEGMENTED NEUTROPHILS % (AUTO) 62.2 % (42-78); TOTAL CELLS COUNTED % (AUTO) 100 %
[2017-10-28 07:29] LABS: ANION GAP 8 (5-19); BLOOD UREA NITROGEN 28 mg/dL (7-20); CARBON DIOXIDE 35 mmol/L (22-30); CHLORIDE 96 mmol/L (98-107); GLUCOSE 60 mg/dL (75-110); IRON(TIBC) 13.7 ug/dL (49-181); POTASSIUM 4.4 mmol/L (3.6-5.0); SODIUM 139.1 mmol/L (137-145)
[2017-10-28 08:33] LABS: FOLATE 9.09 ng/mL (>2.76)
[2017-10-28] MEDS: RAMIPRIL 5 MG CAPSULE PO SCH (09:37)
[2017-10-28] MEDS: METFORMIN HCL 500 MG TABLET PO SCH ×2 (09:37→17:18)
[2017-10-28] MEDS: ALLOPURINOL 100 MG TABLET PO SCH (09:37)
[2017-10-28] MEDS: DULOXETINE HCL 30 MG CAPSULE.DR PO SCH (09:37)
[2017-10-28] MEDS: ASPIRIN 81 MG TABLET, CHEWABLE PO SCH (09:37)
[2017-10-28] MEDS: ATORVASTATIN CALCIUM 10 MG TABLET PO SCH (09:38)
[2017-10-28] MEDS: METOPROLOL SUCCINATE 25 MG TAB.SR.24H PO SCH (09:38)
[2017-10-28] MEDS: CEFEPIME 1 GM/D5W RTU 1 GM/50 ML RTUPB IV SCH ×2 (09:38→21:00)
[2017-10-28] MEDS: INSULIN GLARGINE,HUM.REC.ANLOG 300 UNIT/3 ML INSULN.PEN SUBCUT SCH (10:00)
--- NOTE | 2017-10-28 11:06 | PDOC PROGRESS REPORT ---
Subjective Progress Note for:: 10/28/17 Subjective:: 77-year-old man admitted because of the respiratory distress COPD acute exacerbations pneumonia and a chronic diastolic congestive heart failure Is currently doing fair pt is denied any chest pain denied any shortness of the breath Patient's currently on a BiPAP Patient still continues to smoke Reason For Visit: OBSTRUCTIVE CHRONIC BRONCHITIS Physical Exam Vital Signs: Temp Pulse Resp BP Pulse Ox 97.9 F 69 20 144/53 H 96 10/28/17 07:34 10/28/17 07:34 10/28/17 07:34 10/28/17 07:34 10/28/17 07:34 Intake & Output 10/27/17 10/28/17 10/29/17 06:59 06:59 06:59 Intake Total 2572 1602 Output Total 2675 7150 Balance -103 -1128 Weight 133.6 kg 134.5 kg General appearance: PRESENT: no acute distress, well-developed, well-nourished Head exam: PRESENT: atraumatic, normocephalic Eye exam: PRESENT: conjunctiva pink, EOMI, PERRLA. ABSENT: scleral icterus Ear exam: PRESENT: normal external ear exam Mouth exam: PRESENT: moist, tongue midline Neck exam: PRESENT: full ROM. ABSENT: carotid bruit, JVD, lymphadenopathy, thyromegaly Respiratory exam: PRESENT: decreased breath sounds Cardiovascular exam: PRESENT: RRR. ABSENT: diastolic murmur, rubs, systolic murmur Pulses: PRESENT: normal dorsalis pedis pul, +2 pedal pulses bilateral Vascular exam: PRESENT: normal capillary refill GI/Abdominal exam: PRESENT: normal bowel sounds, soft. ABSENT: distended, guarding, mass, organolmegaly, rebound, tenderness Rectal exam: PRESENT: deferred Extremities exam: ABSENT: pedal edema Neurological exam: PRESENT: alert, awake, oriented to person, oriented to place , oriented to time, oriented to situation, CN II-XII grossly intact. ABSENT: motor sensory deficit Psychiatric exam: PRESENT: appropriate affect, normal mood. ABSENT: homicidal ideation, suicidal ideation Skin exam: PRESENT: dry, intact, warm. ABSENT: cyanosis, rash Results Laboratory Results: 10/28/17 06:40 10/28/17 06:40 10/28/17 10/28/17 10/28/17 06:40 06:40 09:18 WBC 6.0 RBC 3.73 L Hgb 8.6 L Hct 27.7 L MCV 74 L MCH 23.0 L MCHC 31.0 L RDW 19.0 H Plt Count 270 Seg Neutrophils % 62.2 Lymphocytes % 17.9 Monocytes % 14.5 H Eosinophils % 4.5 Basophils % 0.9 Absolute Neutrophils 3.8 Absolute Lymphocytes 1.1 Absolute Monocytes 0.9 Absolute Eosinophils 0.3 Absolute Basophils 0.1 Retic Count (auto) 1.38 Absolute Retic 0.052 Sodium 139.1 Potassium 4.4 Chloride 96 L Carbon Dioxide 35 H Anion Gap 8 BUN 28 H Creatinine 1.19 Est GFR ( Amer) > 60 Est GFR (Non-Af Amer) 59 L Glucose 60 L Calcium 9.0 Iron 13.7 L TIBC 404 % Saturation 3 Ferritin 8.60 L Vitamin B12 341.0 Folate 9.09 Stool Occult Blood NEGATIVE Impressions: Chest X-Ray 10/25/17 17:37 IMPRESSION: Patchy areas of airspace disease-subsegmental atelectasis are present in both lung bases. No significant pleural effusion. Assessment & Plan - Diagnosis (1) Acute and chronic respiratory failure Qualifiers: Respiratory failure complication: hypoxia and hypercapnia Qualified Code(s) : J96.21 - Acute and chronic respiratory failure with hypoxia; J96.22 - Acute and chronic respiratory failure with hypercapnia; J96.22 - Acute and chronic respiratory failure with hypercapnia; J96.22 - Acute and chronic respiratory failure with hypercapnia Is this a current diagnosis for this admission?: Yes (2) COPD exacerbation Is this a current diagnosis for this admission?: Yes (3) Congestive heart disease Is this a current diagnosis for this admission?: Yes (4) Medical non-compliance Is this a current diagnosis for this admission?: Yes (5) DORI (obstructive sleep apnea) Is this a current diagnosis for this admission?: Yes (6) CAD S/P percutaneous coronary angioplasty Is this a current diagnosis for this admission?: Yes - Time Time Spent with patient: 15-24 minutes Medications reviewed and adjusted accordingly: Yes Anticipated discharge: Home Within: Other - Inpatient Certification Medical Necessity: Need Close Monitoring Due to Risk of Patient Decompensation Post Hospital Care: D/C Lithography Contact Worker Documentation - Plan Summary Plan Summary: Continues to current medications
[2017-10-28] MEDS: ENOXAPARIN SODIUM INJ 40 MG/0.4 ML DISP.SYRIN SUBCUT SCH (15:05)
[2017-10-28] MEDS ORDERED: FLUTICASONE NASAL SPRAY 50 MCG/SPRY 120 SPRAY/16 GM ONE (20:26)
[2017-10-28] MEDS ORDERED: SODIUM CHLORIDE NASAL SPRAY 44 ML ONE (20:26)
[2017-10-28] MEDS ORDERED: FLUTICASONE NASAL SPRAY 50 MCG/SPRY 120 SPRAY/16 GM NASL ONE (20:30)
[2017-10-28] MEDS ORDERED: SODIUM CHLORIDE NASAL SPRAY 44 ML NASL ONE (20:30)
[2017-10-28] MEDS: POTASSIUM CHLORIDE 10 MEQ TABLET.SA PO SCH (21:01)
[2017-10-28] MEDS: PRAMIPEXOLE DI-HCL 0.25 MG TABLET PO SCH (21:02)
[2017-10-28] MEDS: MONTELUKAST SODIUM 10 MG TABLET PO SCH (21:03)
[2017-10-29] MEDS: HYDROCODONE/ACETAMINOPHEN 10-325 MG TABLET PO PRN ×2 (02:02→09:55)
[2017-10-29 02:41] LABS: APPEARANCE,URINE CLEAR; BILIRUBIN,URINE NEGATIVE (NEGATIVE); COLOR,URINE STRAW; GLUCOSE, URINE NEGATIVE (NEGATIVE); KETONES,URINE NEGATIVE (NEGATIVE); LEUKOCYTE ESTERASE,URINE NEGATIVE (NEGATIVE); NITRITE,URINE NEGATIVE (NEGATIVE); PROTEIN,URINE NEGATIVE (NEGATIVE); URINE SPECIFIC GRAVITY 1.004; UROBILINOGEN,URINE NEGATIVE mg/dL (<2.0)
[2017-10-29] MEDS: FUROSEMIDE 40 MG TABLET PO SCH ×3 (05:31→21:32)
[2017-10-29 07:08] LABS: HEMATOCRIT 29.2 % (37.9-51.0); HEMOGLOBIN 9.2 g/dL (13.5-17.0); MEAN CORPUSCULAR HEMOGLOBIN 23.4 pg (27.0-33.4); MEAN CORPUSCULAR HGB CONC 31.5 g/dL (32.0-36.0); MEAN CORPUSCULAR VOLUME 74 fl (80-97); PLATELET COUNT 280 10^3/uL (150-450); RED BLOOD COUNT 3.93 10^6/uL (4.35-5.55); RED CELL DISTRIBUTION WIDTH 18.8 % (11.5-14.0); WHITE BLOOD COUNT 7.4 10^3/uL (4.0-10.5)
[2017-10-29 07:37] LABS: ANION GAP 8 (5-19); BLOOD UREA NITROGEN 28 mg/dL (7-20); CALCIUM 9.2 mg/dL (8.4-10.2); CARBON DIOXIDE 36 mmol/L (22-30); CHLORIDE 95 mmol/L (98-107); GLUCOSE 82 mg/dL (75-110); POTASSIUM 4.5 mmol/L (3.6-5.0); SODIUM 139.3 mmol/L (137-145)
[2017-10-29] MEDS: METFORMIN HCL 500 MG TABLET PO SCH ×2 (08:26→18:18)
[2017-10-29] MEDS: IPRATROPIUM/ALBUTEROL 0.5-2.5 MG/3 ML AMPUL NEB PRN (08:45)
[2017-10-29] MEDS: DULOXETINE HCL 30 MG CAPSULE.DR PO SCH (09:54)
[2017-10-29] MEDS: ALLOPURINOL 100 MG TABLET PO SCH (09:56)
[2017-10-29] MEDS: RAMIPRIL 5 MG CAPSULE PO SCH (09:56)
[2017-10-29] MEDS: CEFEPIME 1 GM/D5W RTU 1 GM/50 ML RTUPB IV SCH ×2 (09:56→21:34)
[2017-10-29] MEDS: FLUTICASONE NASAL SPRAY 50 MCG/SPRY 120 SPRAY/16 GM NASL SCH ×2 (09:57→18:18)
[2017-10-29] MEDS: METOPROLOL SUCCINATE 25 MG TAB.SR.24H PO SCH (09:57)
[2017-10-29] MEDS: ATORVASTATIN CALCIUM 10 MG TABLET PO SCH (09:57)
[2017-10-29] MEDS: SODIUM CHLORIDE NASAL SPRAY 44 ML NASL SCH ×2 (09:57→18:18)
[2017-10-29] MEDS: ASPIRIN 81 MG TABLET, CHEWABLE PO SCH (09:57)
[2017-10-29] MEDS: INSULIN GLARGINE,HUM.REC.ANLOG 300 UNIT/3 ML INSULN.PEN SUBCUT SCH (09:58)
--- NOTE | 2017-10-29 13:14 | PDOC CONSULTATION ---
Consultation Consult Date: 10/27/17 Attending physician:: AUTUMN TATE Consult reason:: chronic resp failure History of Present Illness Admission Date/PCP: 10/25/17 23:59 CARRILLO GARCIA MD History of Present Illness: Earnest PIMENTEL is a 77 year old male,admitted for increased cough and shortness of breath at rest. he has oxygen at home carries a diagnosis of chronic hypercapnic respiratory failure chronic hypoxic respiratory failure obesity hypoventilation syndrome and DORI. He admits to poor compliance with oxygen as well as with his noninvasive positive pressure ventilation he denies nausea vomiting diarrhea fevers chills chest pain he has chronic edema. He denies hemoptysis his PPD was negative dates unknown. He denies history of chronic lung disease as a child or as an adolescent. 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 He has no pets no recent travel he has tightness in his chest occasionally sleeps on 3 pillows [place] rare PND rare nocturnal cough and chronic edema he admits to snoring restless sleep nocturia 3-5 times per night unrestful sleep and excessive daytime somnolence Past Medical History Cardiac Medical History: Reports: Atrial Fibrillation, Coronary Artery Disease, Myocardial Infarction, Hyperlipidema, Hypertension Denies: Congestive Heart Failure, DVT, Pulmonary Embolism Pulmonary Medical History: Reports: Bronchitis, Chronic Obstructive Pulmonary Disease (COPD) Neurological Medical History: Denies: Migraine, Multiple Sclerosis, Seizures Endocrine Medical History: Reports: Diabetes Mellitus Type 2 Renal/ Medical History: Denies: End Stage Renal Disease Malignancy Medical History: Reports: None GI Medical History: Reports: Gastroesophageal Reflux Disease Denies: Crohn's Disease, Hepatitis, Ulcerative Colitis Skin Medical History: Denies: Eczema, Psoriasis Psychiatric Medical History: Reports: Depression, Tobacco Dependency Traumatic Medical History: Denies: Pneumothorax, Traumatic Brain Injury Hematology: Denies: Hemophilia, Sickle Cell Disease Infectious Medical History: Denies: Clostridium Difficile, HIV Past Surgical History Past Surgical History: Reports: Cardiac Catheterization - stent, Coronary Stent , Orthopedic Surgery - neck Social History Information Source: Patient, Relative, [facility] Records 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 Smoking Status: Current Every Day Smoker Cigarettes Packs Per Day: 2 Number of Years Smokin Last Time Smoked: 10/23/17 Passive smoke exposure as: Both Frequency of Alcohol Use: None Hx Recreational Drug Use: No Drugs: None Hx Prescription Drug Abuse: No Do you have pets?: No Have you had any respiratory illnesses as a child?: No Have you been exposed to any sick contacts recently?: No Have you had any recent respiratory illnesses?: No Have you travelled outside of [place] in the past 12 months?: No - Advance Directive Resuscitation Status: Full Code Family History Family History: CAD, DM, Malignancy Parental Family History Reviewed: Yes Children Family History Reviewed: Yes Sibling(s) Family History Reviewed.: Yes Medication/Allergy Home Medications: Allopurinol [Zyloprim 100 mg Tablet] 100 mg PO DAILY 09/30/17 Aspirin [Aspirin 81 mg Chewable Tablet] 81 mg PO DAILY 09/30/17 Hydrocodone/Acetaminophen [[place] 10-325 mg Tablet] 1 tab PO Q8HP PRN 09/30/17 Metoprolol Succinate [Toprol Xl 25 mg Tab.sr] 25 mg PO DAILY 09/30/17 Furosemide [Lasix 40 mg Tablet] 40 mg PO Q8 #90 tablet 10/07/17 Ramipril [Altace 5 mg Capsule] 5 mg PO DAILY #30 capsule 10/07/17 Duloxetine HCl [Cymbalta] 60 mg PO DAILY 10/26/17 Insulin Glargine,Hum.rec.anlog [Lantus Insulin 100 Unit/mL] 33 unit SUBCUT QAM 10/26/17 Metformin HCl [Glucophage 500 mg Tablet] 500 mg PO BID 10/26/17 Montelukast Sodium [Singulair 10 mg Tablet] 10 mg PO QHS 10/26/17 Potassium Chloride [Klor-Con 10 Meq Tablet.sa] 10 meq PO DAILY 10/26/17 Pramipexole Di-HCl [Mirapex] 0.125 mg PO QHS 10/26/17 Pravastatin Sodium [Pravachol] 40 mg PO DAILY 10/26/17 Allergies/Adverse Reactions: quinine [Quinine] Allergy (Verified 10/25/17 19:08) Review of Systems Constitutional: ABSENT: anorexia, chills, fatigue, fever(s), headache(s), night sweats Eyes: ABSENT: visual disturbances Ears: ABSENT: hearing changes Nose, Mouth, and Throat: PRESENT: sore throat. ABSENT: mouth pain Cardiovascular: PRESENT: dyspnea on exertion, edema, orthropnea, palpitations Respiratory: PRESENT: cough. ABSENT: hemoptysis Gastrointestinal: ABSENT: abdominal pain, bloating, coffee ground emesis, dysphagia, hematemesis, hematochezia, melena Genitourinary: PRESENT: difficulty urinating, nocturia. ABSENT: dysuria, hematuria Musculoskeletal: ABSENT: deformity, joint swelling Integumentary: ABSENT: pruritus, rash Neurological: ABSENT: abnormal gait, abnormal movements, abnormal speech, confusion, convulsions, focal weakness, frequent falls, lack of coordination, memory loss Psychiatric: ABSENT: hallucinations, homidical ideation, suicidal ideation Endocrine: ABSENT: cold intolerance, heat intolerance, polydipsia, polyuria Hematologic/Lymphatic: ABSENT: easy bruising, lymphadenopathy Allergic/Immunologic: ABSENT: seasonal rhinorrhea Physical Exam Vital Signs: Temp Pulse Resp BP Pulse Ox 97.4 F 101 H 16 133/48 H 100 10/27/17 07:31 10/27/17 07:31 10/27/17 07:31 10/27/17 07:31 10/27/17 07:31 Intake & Output 10/26/17 10/27/17 10/28/17 06:59 06:59 06:59 Intake Total 123 2572 Output Total 100 2675 Balance 23 -103 Weight 134.3 kg 133.6 kg General appearance: PRESENT: cooperative, disheveled, mild distress, morbidly obese, well-developed, well-nourished Head exam: PRESENT: atraumatic, normocephalic Eye exam: PRESENT: EOMI. ABSENT: conjunctiva pale, nystagmus, periorbital swelling, scleral icterus Mouth exam: PRESENT: dry mucosa, neck supple, tongue midline Neck exam: ABSENT: carotid bruit, JVD, lymphadenopathy, thyromegaly, tracheal deviation, tracheostomy Respiratory exam: PRESENT: decreased breath sounds, prolonged expiratory phas, rales, rhonchi, wheezes. ABSENT: retraction, stridor, tachypnea Cardiovascular exam: PRESENT: RRR, +S1, +S2 Pulses: PRESENT: normal radial pulses GI/Abdominal exam: PRESENT: normal bowel sounds Extremities exam: PRESENT: +1 edema. ABSENT: calf tenderness, clubbing Musculoskeletal exam: ABSENT: deformity, dislocation Neurological exam: PRESENT: alert, awake Psychiatric exam: PRESENT: flat affect Skin exam: PRESENT: dry, warm Results Laboratory Results: 10/27/17 05:44 10/27/17 05:44 10/26/17 10/26/17 10/27/17 13:17 13:17 05:44 WBC 8.6 6.6 RBC 3.92 L 3.82 L Hgb 9.1 L 8.9 L Hct 29.4 L 28.6 L MCV 75 L 75 L MCH 23.2 L 23.3 L MCHC 30.9 L 31.1 L RDW 18.7 H 18.8 H Plt Count 315 286 Seg Neutrophils % 67.0 Lymphocytes % 15.7 Monocytes % 11.9 Eosinophils % 5.0 Basophils % 0.4 Absolute Neutrophils 4.4 Absolute Lymphocytes 1.0 Absolute Monocytes 0.8 Absolute Eosinophils 0.3 Absolute Basophils 0.0 Sodium 140.7 Potassium 4.6 Chloride 97 L Carbon Dioxide 33 H Anion Gap 11 BUN 18 Creatinine 0.99 Est GFR ( Amer) > 60 Est GFR (Non-Af Amer) > 60 Glucose 124 H Calcium 9.2 10/27/17 05:44 WBC RBC Hgb Hct MCV MCH MCHC RDW Plt Count Seg Neutrophils % Lymphocytes % Monocytes % Eosinophils % Basophils % Absolute Neutrophils Absolute Lymphocytes Absolute Monocytes Absolute Eosinophils Absolute Basophils Sodium 139.6 Potassium 4.5 Chloride 97 L Carbon Dioxide 33 H Anion Gap 10 BUN 22 H Creatinine 1.12 Est GFR ( Amer) > 60 Est GFR (Non-Af Amer) > 60 Glucose 94 Calcium 9.1 Impressions: Chest X-Ray 10/25/17 17:37 IMPRESSION: Patchy areas of airspace disease-subsegmental atelectasis are present in both lung bases. No significant pleural effusion. Assessment & Plan - Diagnosis (1) DORI (obstructive sleep apnea) Is this a current diagnosis for this admission?: Yes Plan: Continue noninvasive positive pressure ventilation (2) Acute and chronic respiratory failure Qualifiers: Respiratory failure complication: hypoxia and hypercapnia Qualified Code(s) : J96.21 - Acute and chronic respiratory failure with hypoxia; J96.22 - Acute and chronic respiratory failure with hypercapnia; J96.22 - Acute and chronic respiratory failure with hypercapnia; J96.22 - Acute and chronic respiratory failure with hypercapnia Is this a current diagnosis for this admission?: Yes Plan: Supplemental oxygen noninvasive positive pressure ventilation laba plus long acting muscarinic agent plus Martine hold off on inhaled corticosteroids for the time being (3) COPD exacerbation Is this a current diagnosis for this admission?: Yes Plan: Continue current therapy (4) Congestive heart disease Is this a current diagnosis for this admission?: Yes Plan: Diuretics as needed (6) Tobacco abuse Is this a current diagnosis for this admission?: Yes Plan: Stop smoking we discussed at length risk and dangers associated with continued tobacco use reassured him that I understood it was a 73 year history however this does not condemn him to failure and eventually he can stop smoking (7) GERD (gastroesophageal reflux disease) Qualifiers: Esophagitis presence: esophagitis presence not specified Qualified Code(s) : K21.9 - Gastro-esophageal reflux disease without esophagitis Is this a current diagnosis for this admission?: Yes Plan: Continue PPIs (8) Pulmonary hypertension Is this a current diagnosis for this admission?: Yes Plan: Stable at this time
--- NOTE | 2017-10-29 13:16 | PDOC PROGRESS REPORT ---
Subjective Progress Note for:: 10/29/17 Subjective:: Feel a little better Reason For Visit: OBSTRUCTIVE CHRONIC BRONCHITIS Physical Exam Vital Signs: Temp Pulse Resp BP Pulse Ox 98.2 F 76 22 H 153/76 H 99 10/29/17 11:52 10/29/17 11:52 10/29/17 11:52 10/29/17 11:52 10/29/17 11:52 Intake & Output 10/28/17 10/29/17 10/30/17 06:59 06:59 06:59 Intake Total 1602 1418 Output Total 2730 3280 Balance -1128 -2162 Weight 134.5 kg 133 kg General appearance: PRESENT: no acute distress, cooperative, disheveled, morbidly obese Head exam: PRESENT: atraumatic, normocephalic Eye exam: PRESENT: conjunctiva pale, EOMI. ABSENT: nystagmus, periorbital swelling Mouth exam: PRESENT: dry mucosa, neck supple Neck exam: ABSENT: carotid bruit, JVD, lymphadenopathy, thyromegaly, tracheal deviation, tracheostomy Respiratory exam: PRESENT: decreased breath sounds, prolonged expiratory phas, rales, rhonchi, unlabored, wheezes. ABSENT: retraction, stridor Cardiovascular exam: PRESENT: RRR, +S1, +S2 Pulses: PRESENT: normal radial pulses GI/Abdominal exam: PRESENT: normal bowel sounds, soft Extremities exam: PRESENT: full ROM. ABSENT: calf tenderness, clubbing Musculoskeletal exam: PRESENT: full ROM. ABSENT: deformity, dislocation Neurological exam: PRESENT: alert, awake Psychiatric exam: PRESENT: flat affect Skin exam: PRESENT: dry, warm Results Laboratory Results: 10/29/17 06:37 10/29/17 06:37 10/29/17 10/29/17 10/29/17 01:51 02:00 06:37 WBC RBC Hgb Hct MCV MCH MCHC RDW Plt Count Sodium 139.3 Potassium 4.5 Chloride 95 L Carbon Dioxide 36 H Anion Gap 8 BUN 28 H Creatinine 1.12 Est GFR ( Amer) > 60 Est GFR (Non-Af Amer) > 60 Glucose 82 Calcium 9.2 Urine Color STRAW Urine Appearance CLEAR Urine pH 5.0 Ur Specific [place] 1.004 Urine Protein NEGATIVE Urine Glucose (UA) NEGATIVE Urine Ketones NEGATIVE Urine Blood NEGATIVE Urine Nitrite NEGATIVE Ur Leukocyte Esterase NEGATIVE Urine WBC (Auto) 6 Urine RBC (Auto) 1 Stool Occult Blood NEGATIVE 10/29/17 06:37 WBC 7.4 RBC 3.93 L Hgb 9.2 L Hct 29.2 L MCV 74 L MCH 23.4 L MCHC 31.5 L RDW 18.8 H Plt Count 280 Sodium Potassium Chloride Carbon Dioxide Anion Gap BUN Creatinine Est GFR ( Amer) Est GFR (Non-Af Amer) Glucose Calcium Urine Color Urine Appearance Urine pH Ur Specific [place] Urine Protein Urine Glucose (UA) Urine Ketones Urine Blood Urine Nitrite Ur Leukocyte Esterase Urine WBC (Auto) Urine RBC (Auto) Stool Occult Blood 10/27/17 16:55 Sputum Gram Stain - Final Impressions: Chest X-Ray 10/25/17 17:37 IMPRESSION: Patchy areas of airspace disease-subsegmental atelectasis are present in both lung bases. No significant pleural effusion. Assessment & Plan - Diagnosis (1) DORI (obstructive sleep apnea) Is this a current diagnosis for this admission?: Yes Plan: Continue noninvasive positive pressure ventilation (2) Acute and chronic respiratory failure Qualifiers: Respiratory failure complication: hypoxia and hypercapnia Qualified Code(s) : J96.21 - Acute and chronic respiratory failure with hypoxia; J96.22 - Acute and chronic respiratory failure with hypercapnia; J96.22 - Acute and chronic respiratory failure with hypercapnia; J96.22 - Acute and chronic respiratory failure with hypercapnia Is this a current diagnosis for this admission?: Yes Plan: Minimal improvement (3) COPD exacerbation Is this a current diagnosis for this admission?: Yes Plan: Improved (4) Congestive heart disease Is this a current diagnosis for this admission?: Yes (5) Medical non-compliance Is this a current diagnosis for this admission?: Yes (6) Tobacco abuse Is this a current diagnosis for this admission?: Yes Plan: Stop smoking we discussed at length risk and dangers associated with continued tobacco use reassured him that I understood it was a 74 year history however this does not condemn him to failure and eventually he can stop smoking (7) GERD (gastroesophageal reflux disease) Qualifiers: Esophagitis presence: esophagitis presence not specified Qualified Code(s) : K21.9 - Gastro-esophageal reflux disease without esophagitis Is this a current diagnosis for this admission?: Yes Plan: Continue PPIs (8) Pulmonary hypertension Is this a current diagnosis for this admission?: Yes Plan: Stable at this time
[2017-10-29] MEDS: ENOXAPARIN SODIUM INJ 40 MG/0.4 ML DISP.SYRIN SUBCUT SCH (13:24)
[2017-10-29] MEDS: MONTELUKAST SODIUM 10 MG TABLET PO SCH (21:31)
[2017-10-29] MEDS: POTASSIUM CHLORIDE 10 MEQ TABLET.SA PO SCH (21:33)
[2017-10-29] MEDS: PRAMIPEXOLE DI-HCL 0.25 MG TABLET PO SCH (21:33)
--- NOTE | 2017-10-29 21:51 | PDOC PROGRESS REPORT ---
Subjective Progress Note for:: 10/29/17 Subjective:: Patient was seen by the bedside he continues to be short of breath Reason For Visit: OBSTRUCTIVE CHRONIC BRONCHITIS Physical Exam Vital Signs: Temp Pulse Resp BP Pulse Ox 97.3 F 68 19 130/47 H 98 10/29/17 19:49 10/29/17 19:49 10/29/17 20:53 10/29/17 19:49 10/29/17 20:53 Intake & Output 10/28/17 10/29/17 10/30/17 06:59 06:59 06:59 Intake Total 1602 1418 1126 Output Total 2730 4120 1250 Balance -1128 -2162 -124 Weight 134.5 kg 133 kg General appearance: PRESENT: no acute distress Eye exam: PRESENT: PERRLA Respiratory exam: PRESENT: decreased breath sounds Cardiovascular exam: PRESENT: +S1, +S2 GI/Abdominal exam: PRESENT: soft Neurological exam: PRESENT: alert Results Laboratory Results: 10/29/17 06:37 10/29/17 06:37 10/29/17 10/29/17 10/29/17 01:51 02:00 06:37 WBC RBC Hgb Hct MCV MCH MCHC RDW Plt Count Sodium 139.3 Potassium 4.5 Chloride 95 L Carbon Dioxide 36 H Anion Gap 8 BUN 28 H Creatinine 1.12 Est GFR ( Amer) > 60 Est GFR (Non-Af Amer) > 60 Glucose 82 Calcium 9.2 Urine Color STRAW Urine Appearance CLEAR Urine pH 5.0 Ur Specific [place] 1.004 Urine Protein NEGATIVE Urine Glucose (UA) NEGATIVE Urine Ketones NEGATIVE Urine Blood NEGATIVE Urine Nitrite NEGATIVE Ur Leukocyte Esterase NEGATIVE Urine WBC (Auto) 6 Urine RBC (Auto) 1 Stool Occult Blood NEGATIVE 10/29/17 06:37 WBC 7.4 RBC 3.93 L Hgb 9.2 L Hct 29.2 L MCV 74 L MCH 23.4 L MCHC 31.5 L RDW 18.8 H Plt Count 280 Sodium Potassium Chloride Carbon Dioxide Anion Gap BUN Creatinine Est GFR ( Amer) Est GFR (Non-Af Amer) Glucose Calcium Urine Color Urine Appearance Urine pH Ur Specific [place] Urine Protein Urine Glucose (UA) Urine Ketones Urine Blood Urine Nitrite Ur Leukocyte Esterase Urine WBC (Auto) Urine RBC (Auto) Stool Occult Blood 10/27/17 16:55 Sputum Gram Stain - Final Impressions: Chest X-Ray 10/25/17 17:37 IMPRESSION: Patchy areas of airspace disease-subsegmental atelectasis are present in both lung bases. No significant pleural effusion. Assessment & Plan - Diagnosis (1) Acute and chronic respiratory failure Qualifiers: Respiratory failure complication: hypoxia and hypercapnia Qualified Code(s) : J96.21 - Acute and chronic respiratory failure with hypoxia; J96.22 - Acute and chronic respiratory failure with hypercapnia; J96.22 - Acute and chronic respiratory failure with hypercapnia; J96.22 - Acute and chronic respiratory failure with hypercapnia Is this a current diagnosis for this admission?: Yes (2) Tobacco abuse Is this a current diagnosis for this admission?: Yes (3) Acute exacerbation of chronic obstructive pulmonary disease (COPD) Is this a current diagnosis for this admission?: Yes (4) Acute on chronic diastolic (congestive) heart failure Is this a current diagnosis for this admission?: Yes
[2017-10-30] MEDS: HYDROCODONE/ACETAMINOPHEN 10-325 MG TABLET PO PRN (03:33)
[2017-10-30] MEDS: FUROSEMIDE 40 MG TABLET PO SCH ×3 (05:10→22:06)
[2017-10-30 07:27] LABS: ANION GAP 6 (5-19); BLOOD UREA NITROGEN 27 mg/dL (7-20); CALCIUM 8.9 mg/dL (8.4-10.2); CARBON DIOXIDE 39 mmol/L (22-30); CHLORIDE 96 mmol/L (98-107); GLUCOSE 107 mg/dL (75-110); POTASSIUM 4.4 mmol/L (3.6-5.0); SODIUM 141.2 mmol/L (137-145)
[2017-10-30] MEDS: METFORMIN HCL 500 MG TABLET PO SCH ×2 (08:06→17:53)
[2017-10-30] MEDS: INSULIN GLARGINE,HUM.REC.ANLOG 300 UNIT/3 ML INSULN.PEN SUBCUT SCH (09:13)
[2017-10-30] MEDS: RAMIPRIL 5 MG CAPSULE PO SCH (09:13)
[2017-10-30] MEDS: METOPROLOL SUCCINATE 25 MG TAB.SR.24H PO SCH (09:14)
[2017-10-30] MEDS: ASPIRIN 81 MG TABLET, CHEWABLE PO SCH (09:14)
[2017-10-30] MEDS: DULOXETINE HCL 30 MG CAPSULE.DR PO SCH (09:14)
[2017-10-30] MEDS: SODIUM CHLORIDE NASAL SPRAY 44 ML NASL SCH ×2 (09:14→17:54)
[2017-10-30] MEDS: ALLOPURINOL 100 MG TABLET PO SCH (09:14)
[2017-10-30] MEDS: ATORVASTATIN CALCIUM 10 MG TABLET PO SCH (09:14)
[2017-10-30] MEDS: CEFEPIME 1 GM/D5W RTU 1 GM/50 ML RTUPB IV SCH ×2 (09:15→22:08)
[2017-10-30] MEDS: FLUTICASONE NASAL SPRAY 50 MCG/SPRY 120 SPRAY/16 GM NASL SCH ×2 (09:15→17:53)
[2017-10-30] MEDS: IPRATROPIUM/ALBUTEROL 0.5-2.5 MG/3 ML AMPUL NEB PRN ×2 (09:31→20:25)
--- NOTE | 2017-10-30 10:21 | PDOC PROGRESS REPORT ---
Subjective Progress Note for:: 10/30/17 Subjective:: i'm ok Reason For Visit: OBSTRUCTIVE CHRONIC BRONCHITIS Physical Exam Vital Signs: Temp Pulse Resp BP Pulse Ox 97.5 F 96 24 H 155/74 H 97 10/30/17 07:26 10/30/17 09:33 10/30/17 09:33 10/30/17 07:26 10/30/17 09:33 Intake & Output 10/29/17 10/30/17 10/31/17 06:59 06:59 06:59 Intake Total 1418 1176 Output Total 3580 3225 Balance -2161 -2048 Weight 133 kg 130.6 kg General appearance: PRESENT: no acute distress, cooperative, disheveled, morbidly obese Head exam: PRESENT: atraumatic, normocephalic Eye exam: PRESENT: conjunctiva pink, EOMI. ABSENT: nystagmus, periorbital swelling, scleral icterus Mouth exam: PRESENT: dry mucosa, neck supple, tongue midline Neck exam: ABSENT: carotid bruit, JVD, lymphadenopathy, thyromegaly, tracheal deviation, tracheostomy Respiratory exam: PRESENT: decreased breath sounds, prolonged expiratory phas, rhonchi, unlabored. ABSENT: retraction, stridor Cardiovascular exam: PRESENT: RRR, +S1, +S2 Pulses: PRESENT: normal radial pulses GI/Abdominal exam: PRESENT: normal bowel sounds, soft Extremities exam: PRESENT: full ROM, +1 edema. ABSENT: calf tenderness, clubbing Musculoskeletal exam: PRESENT: full ROM. ABSENT: deformity, dislocation Neurological exam: PRESENT: alert, awake Psychiatric exam: PRESENT: normal mood Skin exam: PRESENT: dry, warm Results Laboratory Results: 10/29/17 06:37 10/30/17 06:43 10/30/17 06:43 Sodium 141.2 Potassium 4.4 Chloride 96 L Carbon Dioxide 39 H Anion Gap 6 BUN 27 H Creatinine 1.18 Est GFR ( Amer) > 60 Est GFR (Non-Af Amer) > 60 Glucose 107 Calcium 8.9 10/27/17 16:55 Sputum Gram Stain - Final 10/27/17 16:55 Sputum Sputum Culture - Final Pseudomonas Aeruginosa Corynebacterium Striatum Normal Kathleen Absent Impressions: Chest X-Ray 10/25/17 17:37 IMPRESSION: Patchy areas of airspace disease-subsegmental atelectasis are present in both lung bases. No significant pleural effusion. Assessment & Plan - Diagnosis (1) DORI (obstructive sleep apnea) Is this a current diagnosis for this admission?: Yes Plan: Continue noninvasive positive pressure ventilation (2) Acute and chronic respiratory failure Qualifiers: Respiratory failure complication: hypoxia and hypercapnia Qualified Code(s) : J96.21 - Acute and chronic respiratory failure with hypoxia; J96.22 - Acute and chronic respiratory failure with hypercapnia; J96.22 - Acute and chronic respiratory failure with hypercapnia; J96.22 - Acute and chronic respiratory failure with hypercapnia Is this a current diagnosis for this admission?: Yes Plan: Minimal improvement (3) COPD exacerbation Is this a current diagnosis for this admission?: Yes Plan: 10/27/17 16:55 Gram Stain - Final Sputum Sputum Culture - Final Pseudomonas Aeruginosa Corynebacterium Striatum Normal Kathleen Absent add levofloxin 750 mg po qd x 10 d (4) Congestive heart disease Is this a current diagnosis for this admission?: Yes Plan: Diuretics as needed (5) Medical non-compliance Is this a current diagnosis for this admission?: Yes (6) Tobacco abuse Is this a current diagnosis for this admission?: Yes Plan: Stop smoking we discussed at length risk and dangers associated with continued tobacco use reassured him that I understood it was a 74 year history however this does not condemn him to failure and eventually he can stop smoking (7) GERD (gastroesophageal reflux disease) Qualifiers: Esophagitis presence: esophagitis presence not specified Qualified Code(s) : K21.9 - Gastro-esophageal reflux disease without esophagitis Is this a current diagnosis for this admission?: Yes Plan: Continue PPIs (8) Pulmonary hypertension Is this a current diagnosis for this admission?: Yes - Plan Summary Plan Summary: The above patient has failed BiPAP. This patient would benefit from noninvasive mechanical ventilation via the trilogy AVAPS/AE and faster responding AVAPS rates. The trilogy is able to provide a target tidal volume and also adjusting the EPAP pressures to maintain a patent airway as well as an oral backup rate this machine will help improve PaCO2 levels. The severity of the patient's condition will lead to future hospitalizations and readmissions as well as life-threatening situations without the use of this device trilogy home vent needed for hypercapnic respiratory failure. [facility] or [facility] to follow for trilogy set up.
[2017-10-30] MEDS: ENOXAPARIN SODIUM INJ 40 MG/0.4 ML DISP.SYRIN SUBCUT SCH (11:55)
[2017-10-30 13:20] LABS: ARTERIAL BLOOD BASE EXCESS 10.8 mmol/L; ARTERIAL BLOOD FIO2 3L; ARTERIAL BLOOD H2CO3 1.92 mmol/L (1.05-1.35); ARTERIAL BLOOD HCO3 37.5 mmol/L (20-26); ARTERIAL BLOOD O2 SATURATION 95.9 % (94-98); ARTERIAL BLOOD PCO2 63.9 mmHg (35-45); ARTERIAL BLOOD PH 7.39 (7.35-7.45); ARTERIAL BLOOD PO2 84.5 mmHg (80-100); ARTERIAL BLOOD TOTAL CO2 39.4 mmol/L (23-27)
[2017-10-30] MEDS: LEVOFLOXACIN 750 MG TABLET PO SCH (14:48)
--- NOTE | 2017-10-30 15:56 | Pulmonary Function Test ---
Pulmonary Function Test Date of Procedure:: 10/30/17 INDICATION:: Dyspnea Referring Provider: Dr. Vivienne Espinal. Manager Resource: Ricky Graham - Report Spirometry: FVC 1.83 L 39% postbronchodilator therapy 2.06 L 44% FEV1 0.87 L 24% postbronchodilator therapy 0.95 L 25% FEV1/FVC % 48 postbronchodilator 46 predicted 79 FEF 25-75% 0.50 L 14% postbronchodilator therapy 0.47 L 14% Impression: Severe obstructive ventilatory defect with insignificant response to bronchodilator therapy. This in and of itself does not preclude a clinical trial of bronchodilator therapy. Restrictive ventilatory defect may be inferred but is not diagnosed by spirometry alone. Restrictive defect may mask the degree of obstruction. If clinically indicated complete pulmonary function tests would be warranted
[2017-10-30] MEDS: FLUTICASONE/UMECLIDIN/VILANTER 100-62.5-25 MCG/DOSE IH SCH (17:53)
--- NOTE | 2017-10-30 21:18 | PDOC PROGRESS REPORT ---
Subjective Progress Note for:: 10/30/17 Subjective:: Patient continues to require noninvasive ventilation otherwise no new complaints , he may need bilevel PAP on discharge to support his breathing the fundamental problem with this patient is increased work of breathing he gets tachypneic and tachycardic ,the anxiety is from the increased work of breathing Reason For Visit: OBSTRUCTIVE CHRONIC BRONCHITIS Physical Exam Vital Signs: Temp Pulse Resp BP Pulse Ox 97.5 F 75 12 153/94 H 98 10/30/17 20:12 10/30/17 20:12 10/30/17 20:12 10/30/17 20:12 10/30/17 20:12 Intake & Output 10/29/17 10/30/17 10/31/17 06:59 06:59 06:59 Intake Total 1418 1176 765 Output Total 3580 3225 875 Balance -216 -2048 -110 Weight 133 kg 130.6 kg General appearance: PRESENT: no acute distress Eye exam: PRESENT: PERRLA Respiratory exam: PRESENT: decreased breath sounds Cardiovascular exam: PRESENT: +S1, +S2 GI/Abdominal exam: PRESENT: soft Neurological exam: PRESENT: alert Results Laboratory Results: 10/29/17 06:37 10/30/17 06:43 10/30/17 10/30/17 06:43 12:50 Carbonic Acid 1.92 H HCO3/H2CO3 Ratio 19:1 ABG pH 7.39 ABG pCO2 63.9 H ABG pO2 84.5 ABG HCO3 37.5 H ABG O2 Saturation 95.9 ABG Base Excess 10.8 FiO2 3L Sodium 141.2 Potassium 4.4 Chloride 96 L Carbon Dioxide 39 H Anion Gap 6 BUN 27 H Creatinine 1.18 Est GFR ( Amer) > 60 Est GFR (Non-Af Amer) > 60 Glucose 107 Calcium 8.9 10/27/17 16:55 Sputum Gram Stain - Final 10/27/17 16:55 Sputum Sputum Culture - Final Pseudomonas Aeruginosa Corynebacterium Striatum Normal Kathleen Absent Impressions: Chest X-Ray 10/25/17 17:37 IMPRESSION: Patchy areas of airspace disease-subsegmental atelectasis are present in both lung bases. No significant pleural effusion. Assessment & Plan - Diagnosis (1) Acute and chronic respiratory failure Qualifiers: Respiratory failure complication: hypoxia and hypercapnia Qualified Code(s) : J96.21 - Acute and chronic respiratory failure with hypoxia; J96.22 - Acute and chronic respiratory failure with hypercapnia; J96.22 - Acute and chronic respiratory failure with hypercapnia; J96.22 - Acute and chronic respiratory failure with hypercapnia Is this a current diagnosis for this admission?: Yes (2) Tobacco abuse Is this a current diagnosis for this admission?: Yes (3) Acute exacerbation of chronic obstructive pulmonary disease (COPD) Is this a current diagnosis for this admission?: Yes (4) Acute on chronic diastolic (congestive) heart failure Is this a current diagnosis for this admission?: Yes
[2017-10-30] MEDS: MONTELUKAST SODIUM 10 MG TABLET PO SCH (22:06)
[2017-10-30] MEDS: PRAMIPEXOLE DI-HCL 0.25 MG TABLET PO SCH (22:07)
[2017-10-30] MEDS: POTASSIUM CHLORIDE 10 MEQ TABLET.SA PO SCH (22:08)
[2017-10-31] MEDS: FUROSEMIDE 40 MG TABLET PO SCH ×3 (05:46→21:37)
[2017-10-31 06:43] LABS: HEMATOCRIT 27.6 % (37.9-51.0); HEMOGLOBIN 8.8 g/dL (13.5-17.0); MEAN CORPUSCULAR HEMOGLOBIN 23.1 pg (27.0-33.4); MEAN CORPUSCULAR VOLUME 72 fl (80-97); PLATELET COUNT 242 10^3/uL (150-450); RED BLOOD COUNT 3.81 10^6/uL (4.35-5.55); RED CELL DISTRIBUTION WIDTH 18.9 % (11.5-14.0); WHITE BLOOD COUNT 6.7 10^3/uL (4.0-10.5)
[2017-10-31] MEDS: METFORMIN HCL 500 MG TABLET PO SCH ×2 (08:21→16:42)
[2017-10-31] MEDS: HYDROCODONE/ACETAMINOPHEN 10-325 MG TABLET PO PRN ×2 (08:21→16:41)
[2017-10-31] MEDS: INSULIN GLARGINE,HUM.REC.ANLOG 300 UNIT/3 ML INSULN.PEN SUBCUT SCH (10:50)
[2017-10-31] MEDS: CEFEPIME 1 GM/D5W RTU 1 GM/50 ML RTUPB IV SCH ×2 (10:50→21:39)
[2017-10-31] MEDS: FLUTICASONE NASAL SPRAY 50 MCG/SPRY 120 SPRAY/16 GM NASL SCH ×2 (10:51→17:57)
[2017-10-31] MEDS: METOPROLOL SUCCINATE 25 MG TAB.SR.24H PO SCH (10:51)
[2017-10-31] MEDS: ATORVASTATIN CALCIUM 10 MG TABLET PO SCH (10:51)
[2017-10-31] MEDS: RAMIPRIL 5 MG CAPSULE PO SCH (10:51)
[2017-10-31] MEDS: ASPIRIN 81 MG TABLET, CHEWABLE PO SCH (10:51)
[2017-10-31] MEDS: DULOXETINE HCL 30 MG CAPSULE.DR PO SCH (10:52)
[2017-10-31] MEDS: ALLOPURINOL 100 MG TABLET PO SCH (10:52)
[2017-10-31] MEDS: SODIUM CHLORIDE NASAL SPRAY 44 ML NASL SCH ×2 (10:52→17:57)
[2017-10-31] MEDS: ENOXAPARIN SODIUM INJ 40 MG/0.4 ML DISP.SYRIN SUBCUT SCH (11:43)
[2017-10-31] MEDS: LEVOFLOXACIN 750 MG TABLET PO SCH (14:08)
--- NOTE | 2017-10-31 15:06 | PDOC PROGRESS REPORT ---
Subjective Progress Note for:: 10/31/17 Subjective:: Patient without complaints Reason For Visit: OBSTRUCTIVE CHRONIC BRONCHITIS Physical Exam Vital Signs: Temp Pulse Resp BP Pulse Ox 98.1 F 74 19 152/68 H 100 10/31/17 07:16 10/31/17 07:16 10/31/17 07:16 10/31/17 07:16 10/31/17 07:16 Intake & Output 10/30/17 10/31/17 11/01/17 06:59 06:59 06:59 Intake Total 1176 815 Output Total 3225 1825 Balance -2048 Weight 130.6 kg 130.6 kg General appearance: PRESENT: no acute distress, cooperative, disheveled, morbidly obese Head exam: PRESENT: atraumatic, normocephalic Eye exam: PRESENT: conjunctiva pale, EOMI. ABSENT: nystagmus, periorbital swelling, scleral icterus Mouth exam: PRESENT: dry mucosa, neck supple, tongue midline Neck exam: ABSENT: carotid bruit, JVD, lymphadenopathy, thyromegaly, tracheal deviation, tracheostomy Respiratory exam: PRESENT: decreased breath sounds, prolonged expiratory phas, rhonchi, unlabored. ABSENT: retraction, stridor Cardiovascular exam: PRESENT: RRR, +S1, +S2 Pulses: PRESENT: normal radial pulses GI/Abdominal exam: PRESENT: normal bowel sounds, soft Extremities exam: ABSENT: calf tenderness, clubbing Musculoskeletal exam: ABSENT: deformity, dislocation Neurological exam: PRESENT: alert, awake Psychiatric exam: PRESENT: normal mood Skin exam: PRESENT: dry, warm Results Laboratory Results: 10/31/17 06:33 10/30/17 06:43 10/30/17 10/31/17 12:50 06:33 WBC 6.7 RBC 3.81 L Hgb 8.8 L Hct 27.6 L MCV 72 L MCH 23.1 L MCHC 32.0 RDW 18.9 H Plt Count 242 Carbonic Acid 1.92 H HCO3/H2CO3 Ratio 19:1 ABG pH 7.39 ABG pCO2 63.9 H ABG pO2 84.5 ABG HCO3 37.5 H ABG O2 Saturation 95.9 ABG Base Excess 10.8 FiO2 3L 10/27/17 16:55 Sputum Gram Stain - Final 10/27/17 16:55 Sputum Sputum Culture - Final Pseudomonas Aeruginosa Corynebacterium Striatum Normal Kathleen Absent Impressions: Chest X-Ray 10/25/17 17:37 IMPRESSION: Patchy areas of airspace disease-subsegmental atelectasis are present in both lung bases. No significant pleural effusion. Assessment & Plan - Diagnosis (1) DORI (obstructive sleep apnea) Is this a current diagnosis for this admission?: Yes Plan: Continue noninvasive positive pressure ventilation (2) Acute and chronic respiratory failure Qualifiers: Respiratory failure complication: hypoxia and hypercapnia Qualified Code(s) : J96.21 - Acute and chronic respiratory failure with hypoxia; J96.22 - Acute and chronic respiratory failure with hypercapnia; J96.22 - Acute and chronic respiratory failure with hypercapnia; J96.22 - Acute and chronic respiratory failure with hypercapnia Is this a current diagnosis for this admission?: Yes Plan: Minimal improvement (3) COPD exacerbation Is this a current diagnosis for this admission?: Yes Plan: 10/27/17 16:55 Gram Stain - Final Sputum Sputum Culture - Final Pseudomonas Aeruginosa Corynebacterium Striatum Normal Kathleen Absent add levofloxin 750 mg po qd x 10 d (4) Congestive heart disease Is this a current diagnosis for this admission?: Yes Plan: Diuretics as needed (5) Medical non-compliance Is this a current diagnosis for this admission?: Yes (6) Tobacco abuse Is this a current diagnosis for this admission?: Yes Plan: Stop smoking we discussed at length risk and dangers associated with continued tobacco use reassured him that I understood it was a 73 year history however this does not condemn him to failure and eventually he can stop smoking (7) GERD (gastroesophageal reflux disease) Qualifiers: Esophagitis presence: esophagitis presence not specified Qualified Code(s) : K21.9 - Gastro-esophageal reflux disease without esophagitis Is this a current diagnosis for this admission?: Yes Plan: Continue PPIs (8) Pulmonary hypertension Is this a current diagnosis for this admission?: Yes
[2017-10-31] MEDS: IPRATROPIUM/ALBUTEROL 0.5-2.5 MG/3 ML AMPUL NEB PRN (16:00)
[2017-10-31 16:04] LABS: APPEARANCE,URINE CLEAR; BILIRUBIN,URINE NEGATIVE (NEGATIVE); COLOR,URINE YELLOW; GLUCOSE, URINE NEGATIVE (NEGATIVE); KETONES,URINE NEGATIVE (NEGATIVE); LEUKOCYTE ESTERASE,URINE TRACE (NEGATIVE); NITRITE,URINE NEGATIVE (NEGATIVE); PROTEIN,URINE 100 mg/dL (NEGATIVE); URINE SPECIFIC GRAVITY 1.011; UROBILINOGEN,URINE NEGATIVE mg/dL (<2.0)
[2017-10-31] MEDS: BUSPIRONE HCL 10 MG TABLET PO SCH (16:41)
[2017-10-31] MEDS: FLUTICASONE/UMECLIDIN/VILANTER 100-62.5-25 MCG/DOSE IH SCH (17:57)
[2017-10-31] MEDS: POTASSIUM CHLORIDE 10 MEQ TABLET.SA PO SCH (21:38)
[2017-10-31] MEDS: PRAMIPEXOLE DI-HCL 0.25 MG TABLET PO SCH (21:38)
[2017-10-31] MEDS: MONTELUKAST SODIUM 10 MG TABLET PO SCH (21:38)
[2017-10-31] MEDS: INSULIN LISPRO 100 UNIT/ML 3 ML VIAL SUBCUT PRN (21:43)
[2017-11-01] MEDS: HYDROCODONE/ACETAMINOPHEN 10-325 MG TABLET PO PRN (02:21)
[2017-11-01] MEDS: BUSPIRONE HCL 10 MG TABLET PO SCH ×2 (05:07→16:40)
[2017-11-01] MEDS: FUROSEMIDE 40 MG TABLET PO SCH ×2 (05:07→16:41)
[2017-11-01] MEDS: CEFEPIME 1 GM/D5W RTU 1 GM/50 ML RTUPB IV SCH (09:23)
[2017-11-01] MEDS: INSULIN GLARGINE,HUM.REC.ANLOG 300 UNIT/3 ML INSULN.PEN SUBCUT SCH (09:23)
[2017-11-01] MEDS: METFORMIN HCL 500 MG TABLET PO SCH ×2 (09:23→16:41)
[2017-11-01] MEDS: ASPIRIN 81 MG TABLET, CHEWABLE PO SCH (09:23)
[2017-11-01] MEDS: INSULIN LISPRO 100 UNIT/ML 3 ML VIAL SUBCUT PRN (09:23)
[2017-11-01] MEDS: RAMIPRIL 5 MG CAPSULE PO SCH (09:24)
[2017-11-01] MEDS: FLUTICASONE NASAL SPRAY 50 MCG/SPRY 120 SPRAY/16 GM NASL SCH ×2 (09:24→16:42)
[2017-11-01] MEDS: METOPROLOL SUCCINATE 25 MG TAB.SR.24H PO SCH (09:24)
[2017-11-01] MEDS: ATORVASTATIN CALCIUM 10 MG TABLET PO SCH (09:24)
[2017-11-01] MEDS: DULOXETINE HCL 30 MG CAPSULE.DR PO SCH (09:24)
[2017-11-01] MEDS: ALLOPURINOL 100 MG TABLET PO SCH (09:24)
[2017-11-01] MEDS: SODIUM CHLORIDE NASAL SPRAY 44 ML NASL SCH ×2 (09:25→16:42)
--- NOTE | 2017-11-01 13:00 | PDOC PROGRESS REPORT ---
Subjective Progress Note for:: 11/01/17 Subjective:: w/family awake alert Reason For Visit: OBSTRUCTIVE CHRONIC BRONCHITIS Physical Exam Vital Signs: Temp Pulse Resp BP Pulse Ox 99.0 F 74 32 H 159/70 H 100 11/01/17 07:28 11/01/17 07:28 11/01/17 07:28 11/01/17 07:28 11/01/17 07:28 Intake & Output 10/31/17 11/01/17 11/02/17 06:59 06:59 06:59 Intake Total 815 1298 Output Total 1825 2100 Balance -1010 -802 Weight 130.6 kg 130.2 kg General appearance: PRESENT: no acute distress, cooperative, disheveled, morbidly obese Head exam: PRESENT: atraumatic, normocephalic Eye exam: PRESENT: conjunctiva pale, EOMI. ABSENT: nystagmus, periorbital swelling, scleral icterus Mouth exam: PRESENT: dry mucosa, neck supple, tongue midline Neck exam: ABSENT: carotid bruit, JVD, lymphadenopathy, thyromegaly, tracheal deviation, tracheostomy Respiratory exam: PRESENT: decreased breath sounds, prolonged expiratory phas, rhonchi, unlabored, wheezes. ABSENT: rales, retraction, stridor Cardiovascular exam: PRESENT: RRR, +S1, +S2 Pulses: PRESENT: normal radial pulses GI/Abdominal exam: PRESENT: normal bowel sounds, soft Extremities exam: PRESENT: full ROM. ABSENT: calf tenderness, clubbing Musculoskeletal exam: PRESENT: ambulatory, full ROM. ABSENT: deformity, dislocation Neurological exam: PRESENT: alert, awake Psychiatric exam: PRESENT: normal mood Skin exam: PRESENT: dry, warm Results Laboratory Results: 10/31/17 06:33 10/30/17 06:43 10/31/17 15:45 Urine Color YELLOW Urine Appearance CLEAR Urine pH 6.0 Ur Specific Lyman 1.011 Urine Protein 100 H Urine Glucose (UA) NEGATIVE Urine Ketones NEGATIVE Urine Blood NEGATIVE Urine Nitrite NEGATIVE Ur Leukocyte Esterase TRACE H Urine WBC (Auto) 5 Urine RBC (Auto) 1 Impressions: Chest X-Ray 10/25/17 17:37 IMPRESSION: Patchy areas of airspace disease-subsegmental atelectasis are present in both lung bases. No significant pleural effusion. Assessment & Plan - Diagnosis (1) DORI (obstructive sleep apnea) Is this a current diagnosis for this admission?: Yes Plan: Continue noninvasive positive pressure ventilation (2) Acute and chronic respiratory failure Qualifiers: Respiratory failure complication: hypoxia and hypercapnia Qualified Code(s) : J96.21 - Acute and chronic respiratory failure with hypoxia; J96.22 - Acute and chronic respiratory failure with hypercapnia; J96.22 - Acute and chronic respiratory failure with hypercapnia; J96.22 - Acute and chronic respiratory failure with hypercapnia Is this a current diagnosis for this admission?: Yes Plan: clinically improved (3) COPD exacerbation Is this a current diagnosis for this admission?: Yes Plan: 10/27/17 16:55 Gram Stain - Final Sputum Sputum Culture - Final Pseudomonas Aeruginosa Corynebacterium Striatum Normal Kathleen Absent add levofloxin 750 mg po qd x 10 d (4) Congestive heart disease Is this a current diagnosis for this admission?: Yes Plan: Diuretics as needed (5) Medical non-compliance Is this a current diagnosis for this admission?: Yes (6) Tobacco abuse Is this a current diagnosis for this admission?: Yes Plan: Stop smoking we discussed at length risk and dangers associated with continued tobacco use reassured him that I understood it was a 73 year history however this does not condemn him to failure and eventually he can stop smoking (7) GERD (gastroesophageal reflux disease) Qualifiers: Esophagitis presence: esophagitis presence not specified Qualified Code(s) : K21.9 - Gastro-esophageal reflux disease without esophagitis Is this a current diagnosis for this admission?: Yes Plan: Continue PPIs (8) Pulmonary hypertension Is this a current diagnosis for this admission?: Yes - Plan Summary Plan Summary: The above patient has failed BiPAP. This patient would benefit from noninvasive mechanical ventilation via the trilogy AVAPS/AE and faster responding AVAPS rates. The trilogy is able to provide a target tidal volume and also adjusting the EPAP pressures to maintain a patent airway as well as an oral backup rate this machine will help improve PaCO2 levels. The severity of the patient's condition will lead to future hospitalizations and readmissions as well as life-threatening situations without the use of this device trilogy home vent needed for hypercapnic respiratory failure. [facility] or [facility] to follow for trilogy set up.
[2017-11-01] MEDS: LEVOFLOXACIN 750 MG TABLET PO SCH (16:41)
[2017-11-01] MEDS: FLUTICASONE/UMECLIDIN/VILANTER 100-62.5-25 MCG/DOSE IH SCH (16:42)
[2017-11-01] MEDS: ENOXAPARIN SODIUM INJ 40 MG/0.4 ML DISP.SYRIN SUBCUT SCH (16:43)
--- NOTE | 2017-11-01 17:06 | PDOC DISCHARGE SUMMARY ---
General - Admit/Disc Date/PCP Admission Date/Primary Care Provider: 10/25/17 23:59 CARRILLO GARCIA MD Discharge Date: 11/01/17 - Discharge Diagnosis (1) Acute and chronic respiratory failure Is this a current diagnosis for this admission?: Yes (2) Tobacco abuse Is this a current diagnosis for this admission?: Yes (3) Acute exacerbation of chronic obstructive pulmonary disease (COPD) Is this a current diagnosis for this admission?: Yes (4) Acute on chronic diastolic (congestive) heart failure Is this a current diagnosis for this admission?: Yes - Additional Information Resuscitation Status: Full Code Discharge Diet: Diabetic Discharge Activity: Activity As Tolerated Prescriptions: Empagliflozin [Jardiance] 25 mg PO DAILY #90 tablet Fluticasone/Umeclidin/Vilanter [Trelegy 100-62.5-25 Mcg Ellipta 14 Dose/Dpi] 1 inh IH QPM #2 inhaler Ipratropium/Albuterol Sulfate [Duoneb 3 ml Ampul] 3 ml NEB RTQ4HP PRN #120 vial.neb PRN Reason: Home Medications: Allopurinol [Zyloprim 100 mg Tablet] 100 mg PO DAILY 09/30/17 Aspirin [Aspirin 81 mg Chewable Tablet] 81 mg PO DAILY 09/30/17 Hydrocodone/Acetaminophen [Sonoita 10-325 mg Tablet] 1 tab PO Q8HP PRN 09/30/17 Metoprolol Succinate [Toprol Xl 25 mg Tab.sr] 25 mg PO DAILY 09/30/17 Furosemide [Lasix 40 mg Tablet] 40 mg PO Q8 #90 tablet 10/07/17 Ramipril [Altace 5 mg Capsule] 5 mg PO DAILY #30 capsule 10/07/17 Duloxetine HCl [Cymbalta] 60 mg PO DAILY 10/26/17 Insulin Glargine,Hum.rec.anlog [Lantus Insulin 100 Unit/mL] 33 unit SUBCUT QAM 10/26/17 Metformin HCl [Glucophage 500 mg Tablet] 500 mg PO BID 10/26/17 Montelukast Sodium [Singulair 10 mg Tablet] 10 mg PO QHS 10/26/17 Potassium Chloride [Klor-Con 10 Meq Tablet.sa] 10 meq PO DAILY 10/26/17 Pramipexole Di-HCl [Mirapex] 0.125 mg PO QHS 10/26/17 Pravastatin Sodium [Pravachol] 40 mg PO DAILY 10/26/17 Empagliflozin [Jardiance] 25 mg PO DAILY #90 tablet 11/01/17 Fluticasone/Umeclidin/Vilanter [Trelegy 100-62.5-25 Mcg Ellipta 14 Dose/Dpi] 1 inh IH QPM #2 inhaler 11/01/17 Ipratropium/Albuterol Sulfate [Duoneb 3 ml Ampul] 3 ml NEB RTQ4HP PRN #120 vial.neb 11/01/17 History of Present Illness History of Present Illness: Earnest PIMENTEL is a 77 year old maleHe has a history of chronic obstructive pulmonary disease complicated with pulmonary hypertension, chronic diastolic heart failure, a recalcitrant smoker, he came to the emergency room for evaluation of shortness of breath. He was recently admitted in this hospital on discharge when he presented with acute exacerbation of COPD. After he was evaluated in the emergency room, the ED physician called me to discuss his case with me we both agreed that he could be discharged home, he will follow with me in the office the following day for close monitoring and evaluation but on discharge when patient started ambulating he became tachypneic, with a low oxygen saturation and diaphoretic, it was felt that patient at this time needed to be admitted to the hospital for further evaluation. Hospital Course Hospital Course: Patient was admitted for the management of acute on chronic respiratory failure , he was treated with noninvasive ventilation with bilevel PAP, he was seen in consultation by pulmonary Dr. Pop or home noninvasive positive pressure ventilation was recommended, arrangement was made for trilogy. Patient is being discharged home today with the noninvasive positive pressure ventilation. He was treated with bronchodilators and antibiotic. He was again advised of the need for complete smoking cessation. Physical Exam Vital Signs: Temp Pulse Resp BP Pulse Ox 97.4 F 79 40 H 136/65 H 96 11/01/17 12:10 11/01/17 14:00 11/01/17 12:10 11/01/17 12:10 11/01/17 12:10 Intake & Output 10/31/17 11/01/17 11/02/17 06:59 06:59 06:59 Intake Total 815 1298 Output Total 1825 2100 Balance -1010 -802 Weight 130.6 kg 130.2 kg General appearance: PRESENT: no acute distress Eye exam: PRESENT: PERRLA Respiratory exam: PRESENT: clear to auscultation lianne Cardiovascular exam: PRESENT: +S1, +S2 GI/Abdominal exam: PRESENT: soft Neurological exam: PRESENT: alert Results Laboratory Results: 10/31/17 06:33 10/30/17 06:43 Impressions: Chest X-Ray 10/25/17 17:37 IMPRESSION: Patchy areas of airspace disease-subsegmental atelectasis are present in both lung bases. No significant pleural effusion. Qualifiers - * PATIENT BEING DISCHARGED WITH ANY OF THE FOLLOWING DIAGNOSIS: No
[2017-11-01 17:46] VITALS: BP 164/105
== END 2017-11-01 18:51 | disposition home health service (06) | DRG 190 ==
LOC: ER 17:29 → EH 23:59 → 3S 10-26 02:25
PROVIDERS: ADMIT Internal Medicine; ATTEND Internal Medicine
PROC: 5A09557 Assistance with Respiratory Ventilation, Greater than 96 Consecutive Hours, Continuous Positive Airway Pressure (ICD-10-PCS; principal; 2017-10-25)
PROC: 3E0F73Z Introduction of Anti-inflammatory into Respiratory Tract, Via Natural or Artificial Opening (ICD-10-PCS; 2017-10-26)
DX: J44.1 Chronic obstructive pulmonary disease with (acute) exacerbation (principal); I50.43 Acute on chronic combined systolic (congestive) and diastolic (congestive) heart failure; J96.21 Acute and chronic respiratory failure with hypoxia; J96.22 Acute and chronic respiratory failure with hypercapnia; E66.2 Morbid (severe) obesity with alveolar hypoventilation; E11.9 Type 2 diabetes mellitus without complications; I27.20 Pulmonary hypertension, unspecified; I48.91 Unspecified atrial fibrillation; I25.10 Atherosclerotic heart disease of native coronary artery without angina pectoris; E78.00 Pure hypercholesterolemia, unspecified; F17.210 Nicotine dependence, cigarettes, uncomplicated; I11.0 Hypertensive heart disease with heart failure; K21.9 Gastro-esophageal reflux disease without esophagitis; F32.9 Major depressive disorder, single episode, unspecified; B96.5 Pseudomonas (aeruginosa) (mallei) (pseudomallei) as the cause of diseases classified elsewhere; Z91.19 Patient's noncompliance with other medical treatment and regimen; I25.2 Old myocardial infarction; Z79.82 Long term (current) use of aspirin; Z79.4 Long term (current) use of insulin; Z79.899 Other long term (current) drug therapy; Z99.81 Dependence on supplemental oxygen; Z95.5 Presence of coronary angioplasty implant and graft; Z88.8 Allergy status to other drugs, medicaments and biological substances; Z83.3 Family history of diabetes mellitus; Z80.9 Family history of malignant neoplasm, unspecified; Z82.49 Family history of ischemic heart disease and other diseases of the circulatory system
CPT/HCPCS: 36415; 36600; 71045; 80048; 80053; 81001; 82272; 82553; 82607; 82728; 82746; 82803; 82962; 83540; 83550; 83735; 83880; 84484; 85025; 85027; 85045; 87040; 87070; 87077; 87186; 87205; 93005; 93010; 94010; 94640; 94660; 96365; 96366; 96375; 99285; J0692; J1650; J1815; J1940; J3475; J3490; J7620

== ENCOUNTER 2018-02-09 13:32 | Emergency (ER) | payer MEDICARE, OTHER ==
[2018-02-09] MEDS ORDERED: METHYLPREDNISOLONE INJ 125 MG/2 ML SDV IV ONE (14:16)
[2018-02-09] MEDS ORDERED: IPRATROPIUM/ALBUTEROL 0.5-2.5 MG/3 ML AMPUL NEB ONE (14:16)
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
--- NOTE | 2018-02-09 15:12 | RADIOLOGY REPORT (SQ) ---
EXAM DESCRIPTION: CHEST SINGLE VIEW COMPLETED DATE/TIME: 02/09/2018 2:55 pm REASON FOR STUDY: sob COMPARISON: CT chest 10/03/2017 Chest films 06/04/2017, 09/29/2017, 10/25/2017 EXAM PARAMETERS: NUMBER OF VIEWS: One view. TECHNIQUE: Single frontal radiographic view of the chest acquired. RADIATION DOSE: NA LIMITATIONS: None. FINDINGS: LUNGS AND PLEURA: No opacities, masses or pneumothorax. No pleural effusion. MEDIASTINUM AND HILAR STRUCTURES: No masses. Contour normal. HEART AND VASCULAR STRUCTURES: Stable cardiomegaly and enlarged pulmonary veins. BONES: No acute findings. HARDWARE: None in the chest. OTHER: No other significant finding. IMPRESSION: Stable cardiomegaly. No acute infiltrates TECHNICAL DOCUMENTATION: JOB ID: [id number] [employer]- All Rights Reserved Reading location - IP/workstation name: [email or web address]
[2018-02-09 16:27] VITALS: BP 163/79
--- NOTE | 2018-02-09 21:26 | EKG REPORT ---
SEVERITY:- ABNORMAL ECG - SINUS RHYTHM VENTRICULAR PREMATURE COMPLEX FIRST DEGREE AV BLOCK RIGHT BUNDLE BRANCH BLOCK PROBABLE ANTEROSEPTAL INFARCT, AGE INDETERM : Confirmed by: Ana Tinajero 09-Feb-2018 21:25:38
== END 2018-02-09 14:58 | disposition home or self-care (01) ==
LOC: ER 13:32
DX: R09.02 Hypoxemia (principal); J44.9 Chronic obstructive pulmonary disease, unspecified; R06.02 Shortness of breath; I50.9 Heart failure, unspecified; Z99.81 Dependence on supplemental oxygen; F17.200 Nicotine dependence, unspecified, uncomplicated; I25.10 Atherosclerotic heart disease of native coronary artery without angina pectoris; I10 Essential (primary) hypertension; E11.9 Type 2 diabetes mellitus without complications
CPT/HCPCS: 93005; 94640; 99285; 96374; 71045; 93010; J2930; A9270; J7620